=== PATIENT | male | born 1935 | race African-American/Black ===

== ENCOUNTER 2017-04-19 18:02 | Inpatient (IN) | payer MEDICARE ==
[~2017-04-19 18:02] MED LIST: ISOVUE-370 76%-LOCM 1 ML ONE
[2017-04-19] MEDS ORDERED: Acetaminophen 650 MG Suppository PR PRN (18:05)
[2017-04-19] MEDS ORDERED: Bisacodyl 5 MG TAB PO PRN (18:05)
[2017-04-19] MEDS ORDERED: Diltiazem 125 MG in Sodium Chloride 0.9% 100 ML IVPB SCH (18:30)
[2017-04-19] MEDS ORDERED: Dextrose 50% Abboject 50 ML SYRINGE SLOW IVP PRN (18:30)
[2017-04-19] MEDS ORDERED: Dextrose 5% in Water 1,000 ML IV PRN (18:30)
--- NOTE | 2017-04-19 19:22 | CT ---
CTA OF THE THORAX UTILIZING IV CONTRAST PE PROTOCOL AND 3D REFORMATTED IMAGING 04/19/17 INDICATION: History of flu and possible pneumonia and shortness of breath. COMPARISON: Prior chest radiograph dated 04/19/17 and 04/18/17. FINDINGS: No central or segmental pulmonary embolus is evident. There is scattered coronary artery ant thoracic aortic calcifications. The ascending aorta measures 3.8 cm. There are moderate sized bilateral pleur al effusions. There is scattered air space consolidation within the right upper lobe, right middle lo be, right lower lobe, lingula and left lower lobe. The visualized upper abdomen is unremarkable for a cute abnormality. There is a prominent amount of retained stool within the colon. Scattered degenerat sheila and osteoarthritic change. IMPRESSION: 1. No central or segmental pulmonary embolus. 2. Multifocal pneumonia. 3. Moderate bilateral pleural effusions. POS: [facility]
--- NOTE | 2017-04-19 19:33 | HP ---
PRIMARY CARE PHYSICIAN: Dr. Oren Stevens. CHIEF COMPLAINT: Worsening pneumonia. HISTORY OF PRESENT ILLNESS: Mr. Toscano is a pleasant 81-year-old gentleman, who was seen at [facility] on 04/19/2017, following transfer from [place]. He was admitted to [facility] on 04/13/2017 for influenza type B as well as pneumonia. While at [place], he underwent soft tissue CT scan of the neck on 04/17/2017, which did not show any e vidence of peritonsillar abscess. That CT scan showed right upper lobe and right lower lobe pneumoni a with parapneumonic effusion and possible chronic sinusitis of the left maxillary sinus. He also velasco d chest x-rays at [place], which showed worsening bilateral pneumonia. His antibiotics were switched to meropenem and vancomycin while he was at [place]. He also had severe hyponatremia, with a sodium of 117 on 04/13/2017. This improved to 133. Mr. Toscano himself is currently not answering any questions. History was obtained from discussion wi th the attending physician at [facility] as well as review of medical record. REVIEW OF SYSTEMS: Could not be completed. Mr. Toscano was also noted to have high heart rate during the day today. PAST MEDICAL HISTORY: Significant for dyslipidemia and diabetes mellitus type 2. PAST SURGICAL HISTORY: Significant for cataract surgery. SOCIAL HISTORY: No history of tobacco use, alcohol use or recreational drug use. ALLERGIES: No known drug allergies. CURRENT MEDICATIONS: These need to be clarified, but include meropenem and vancomycin. FAMILY HISTORY: No family history of premature coronary artery disease. CODE STATUS: I could not discuss Mr. Toscano's code status because he is unable to answer questions a ppropriately. I tried contacting his family, but I could not reach them. He is presumed FULL CODE. PHYSICAL EXAMINATION: GENERAL: Mr. Toscano is sleepy but arousable, not in acute distress. VITAL SIGNS: Blood pressure is 134/81, pulse is 170. He is breathing at rate of 28 and saturating 9 2% on 4 liters of oxygen. Temperature is 99 degrees Fahrenheit. EYES: No scleral icterus. No conjunctival pallor. ENT: Moist mucosal membranes, no oropharyngeal erythema or exudates. NECK: Supple, nontender, normal range of movement, trachea is midline. RESPIRATORY: Accessory muscles of breathing are mildly active. Chest wall movements are symmetric b ilaterally. LUNGS: Reveals few bilateral crackles. CARDIOVASCULAR: S1 and S2 are heard, tachycardic and regular. Peripheral pulses palpable. No carot id bruit, no pericardial rub. ABDOMEN: Soft, nontender, bowel sounds are heard, no hepatomegaly, no splenomegaly. NEUROLOGIC: Cranial nerves II-XII intact. Deep tendon reflexes are 2+. SKIN: No rashes or subcutaneous nodules. MUSCULOSKELETAL: Power is 5/5 in all 4 extremities. Normal range of movement at all major extremity joints. LYMPHATIC: No cervical lymphadenopathy. PSYCHIATRIC: Normal mood and normal affect, patient is oriented to person, unable to assess orientat ion to place or time. LABORATORY DATA: Mr. Toscano's labs and investigations were reviewed. I reviewed his electrocardiogr am, which shows atrial flutter with 2:1 AV conduction. I also reviewed his chest x-ray, which showed bilateral infiltrates. Laboratory investigations today showed decreased sodium of 133, normal potas sium 4.0, normal creatinine 0.78, white count of 7600, hemoglobin 10.9 and platelet count 231,000. Gildardo esqueda had a normal liver function test on 04/14/2017. ASSESSMENT AND PLAN: Mr. Toscano is a pleasant 81-year-old gentleman, who was seen at [facility] on 04/19/2017 following transfer from [facility]. His problem lis t includes: 1. Bilateral pneumonia: Mr. Toscano will be admitted to [facility] for furthe r management. We will continue him on meropenem and vancomycin for now. We will consult Pulmonology Service. I note that the soft tissue CT scan of the neck showed right upper and right lower lobe pn eumonia with parapneumonic effusion. 2. Atrial flutter: We will trial Cardizem. If successful in slowing the heart rate, we will start patient on Cardizem drip. Consult Cardiology in the morning for ongoing management. 3. Diabetes mellitus: I will start Accu-Cheks, insulin sliding scale. 4. Hyponatremia: Improved. 5. Dyslipidemia: Continue home medications once clarified. 6. Obtain CT angiogram of the chest to rule out pulmonary embolism, given increasing oxygen requirem ents as well as tachyarrhythmia. Many thanks for allowing me to participate in your patient's care. Please feel free to contact me wi th any questions or concerns. LEVEL OF RISK: High. LEVEL OF COMPLEXITY: High.
[2017-04-19] MEDS: Vancomycin HCl 1 GM in Premix Bag 1 BAG IVPB SCH (21:03)
[2017-04-19] MEDS ORDERED: Meropenem 1 GM in Sodium Chloride 0.9% 100 ML IVPB SCH (22:00)
[2017-04-19] MEDS: Meropenem 1 GM in Sterile Water 20 ML SLOW IVP SCH (22:58)
[2017-04-20 04:21] LABS: #Lymphocytes 0.6 thou/uL (1.20-3.40); #Monocytes 0.8 thou/uL (0.11-0.59); #Neutrophils 10.6 thou/uL (1.40-6.50); %Basophils 0.2 % (0.0-1.0); %Eosinophils 0.3 % (0.0-10.0); %Lymphocytes 4.8 % (21.0-51.0); %Monocytes 6.9 % (0.0-10.0); %Neutrophils 87.8 % (42.0-75.0); Hemoglobin 10.9 g/dL (14.0-18.0); Mean Corpuscular HGB CONC 33.3 g/dL (32.0-36.0); Mean Corpuscular Hemoglobin 30.2 pg (27.0-31.0); Mean Corpuscular Volume 90.9 fl (80.0-94.0); Mean Platelet Volume 6.3 fL (7.4-10.4); Platelet Count 309 thou/uL (130-400); RBC Distribution Width 12.6 % (11.5-14.5); White Blood Cell (WBC) Count 12.1 thou/uL (4.8-10.8)
[2017-04-20 04:54] LABS: Anion Gap 17 mmol/L (10-20); BUN (Urea Nitrogen) 22 mg/dL (8.4-25.7); Calc. Creatinine Clearance 74 mL/min (70-130); Calcium 8.6 mg/dL (7.8-10.44); Carbon Dioxide 16 mmol/L (23-31); Chloride 107 mmol/L (98-107); Estimated GFR-MDRD Greater than 90; Glucose 248 mg/dL (83-110); Sodium 136 mmol/L (136-145)
[2017-04-20] MEDS: Meropenem 1 GM in Sterile Water 20 ML SLOW IVP SCH ×3 (06:20→22:45)
[2017-04-20] MEDS: Vancomycin HCl 1 GM in Premix Bag 1 BAG IVPB SCH ×2 (08:21→21:17)
[2017-04-20] MEDS: Enoxaparin Sodium 40 MG/0.4 ML SYRINGE SC SCH (08:23)
[2017-04-20] MEDS ORDERED: Prevnar 13-Val Conj/PF 0.5 ML SYRINGE IM ONE (09:00)
[2017-04-20] MEDS ORDERED: FLU VACC TS2017-18 (>65YR) 0.5 ML SYRINGE IM ONE (09:00)
[2017-04-20] MEDS ORDERED: Midazolam HCl 2 mg/2 ml Vial ONE (10:47)
[2017-04-20] MEDS ORDERED: Propofol 1,000 MG/100 ML VIAL IV ONE (10:57)
[2017-04-20] MEDS ORDERED: Dextrose 5% in Water 1,000 ML IV PRN (11:11)
[2017-04-20] MEDS ORDERED: Sedation Protocol FS ONE (11:11)
[2017-04-20] MEDS ORDERED: CCU Electrolyte Replacement 1 EACH FS ONE (11:11)
[2017-04-20] MEDS ORDERED: Dextrose 50% Abboject 50 ML SYRINGE SLOW IVP PRN (11:11)
[2017-04-20] MEDS ORDERED: Sodium Chloride 0.9% 1,000 ML IV SCH ×2 (11:11→15:45)
[2017-04-20] MEDS ORDERED: Potassium Phosphate 9 MMOL in Sodium Chloride 0.9% 100 ML IVPB PRN (11:15)
[2017-04-20] MEDS ORDERED: Magnesium Oxide 400 MG TAB PO PRN (11:15)
[2017-04-20] MEDS ORDERED: Potassium Chloride 40 MEQ in Sodium Chloride 0.9% 250 ML 250 ML IVPB PRN (11:15)
[2017-04-20] MEDS ORDERED: CCU ELECTROLYTE REPLACEMENT PROTOCOL FS PRN (11:15)
[2017-04-20] MEDS ORDERED: Potassium Chloride 20 MEQ TAB PO PRN (11:15)
[2017-04-20] MEDS ORDERED: Potassium Phosphate 15 MMOL in Sodium Chloride 0.9% 250 ML 250 ML IV PRN (11:15)
[2017-04-20] MEDS ORDERED: Diltiazem 125 MG in Sodium Chloride 0.9% 100 ML IVPB SCH (11:15)
[2017-04-20] MEDS ORDERED: Potassium Chloride 40 MEQ in Premix Bag 1 BAG IVPB PRN (11:15)
[2017-04-20] MEDS ORDERED: Magnesium 2 GM/NS 0.9% 100 ML 2 GM in Premix Bag 1 BAG IVPB PRN (11:15)
[2017-04-20] MEDS ORDERED: Potassium Phosphate 12 MMOL in Sodium Chloride 0.9% 250 ML 250 ML IV PRN (11:15)
[2017-04-20] MEDS ORDERED: Lorazepam 2 MG/ML VIAL SLOW IVP PRN (11:16)
[2017-04-20] MEDS ORDERED: DISCONTINUE PREVIOUS NARCOTIC PAIN MEDICATIONS AND BENZODIAZEPINES FS SCH (11:16)
[2017-04-20] MEDS ORDERED: Fentanyl BOLUS 250 ML IVPB PRN (11:16)
[2017-04-20 11:48] LABS: Actual Bicarbonate (HCO3a) 17.7 mEq/L (22-26); Base Excess (BEa) -6.3 mEq/L (0 (+/-) 2.5); Calcium, Ionized 1.2 mmol/L (1.12-1.30); Hematocrit-ABG 31.4 % (42.0-52.0); Hemoglobin (Hb) 10.2 g/dL (14.0-18.0); O2 Tension (PaO2) 87.6 mmHg (80.0-100.0); pH, Arterial 7.39 (7.35-7.45)
[2017-04-20 11:50] LABS: Puncture Site RRA
[2017-04-20] MEDS: Sodium Chloride 0.9% 1,000 ML IV SCH ×2 (12:07→16:42)
--- NOTE | 2017-04-20 13:40 | OP ---
PROCEDURES PERFORMED: 1. Endotracheal intubation. 2. Fiberoptic bronchoscopy. PREOPERATIVE DIAGNOSIS: Respiratory failure with pneumonia. POSTOPERATIVE DIAGNOSIS: Respiratory failure with pneumonia. ANESTHESIA: Versed 2 mg IV. TECHNIQUE: The patient was brought to the ICU. This procedure was done on an emergent basis without consent. DESCRIPTION OF PROCEDURE: The patient was intubated on the first attempt with 8-0 endotracheal tube orally with a GlideScope used for visualization. The ET tube was then connected to ventilator. Usin g a Pentax bronchoscope, the bronchoscope was placed into the endotracheal tube. There were dense mu coid secretions present in both lungs as well as in the trachea. These were aspirated and sent for G ottoniel stain and culture. There were no other endobronchial lesions noted. The procedure was tolerated well.
--- NOTE | 2017-04-20 13:55 | CON ---
DATE OF CONSULTATION: 04/20/2017 PRIMARY PHYSICIAN: Dr. Stevens, he was asked to see him by the Hospitalist Service, Dr. Mancilla. INDICATIONS FOR CONSULTATION: We were asked to see him due to atrial fibrillation/flutter. HISTORY OF PRESENT ILLNESS: This is a very unfortunate 81-year-old gentleman, was diagnosed recently with influenza B and pneumonia. He was decompensated, was then transferred to our facility for furt her care. On arrival here, he was noted to have both right upper and lower lobe pneumonia. He has h ad a peripneumonic effusion. Over the last 24 hours, he has decompensated further requiring intubati on this morning. He is now in the Intensive Care Unit intubated and also continues to have atrial fi brillation/flutter, heart rates in the 110s to 120s, did not have any previous cardiac history that w ould indicate fibrillation or flutter in the past. At this time, we will start him on a diltiazem dr ip to control the rate, but it is atrial flutter with a variable block that appears to be approximate ly 3:1 block. PAST MEDICAL HISTORY: Significant for hypertension, diabetes, degenerative joint disease, benign pro static hypertrophy, cataract surgery, hypercholesterolemia. SOCIAL HISTORY: He has no alcohol or tobacco abuse. FAMILY HISTORY: Noncontributory. MEDICATIONS: Include IV diltiazem, Lovenox, and vancomycin. At home he has been taking metformin, l ovastatin, Zestril and aspirin. ALLERGIES: None. REVIEW OF SYSTEMS: Not obtainable. The patient is intubated and slightly sedated. PHYSICAL EXAMINATION: GENERAL: Reveals an elderly gentleman. VITAL SIGNS: Blood pressure at this time is 156/89, heart rate is 117, which shows atrial flutter on the monitor. His respiratory rate is about 30. He is on the ventilator at this time that seems to be overlying the ventilator and O2 saturations are now 92%. He is afebrile. HEENT: Shows head to be normocephalic, atraumatic. There is some elevation of JVD at this time, but the patient is lying flat in the bed. He did not hear any other distention. There is no thyroid en largement from what I can palpate. CHEST: Shows decreased breath sounds. He recently had bronchoscopy apparently this morning. I did not hear any significant rales, rhonchi or wheezing at this time. CARDIOVASCULAR: Somewhat irregular, but at times it appears to be more regular, but sounds slightly tachycardic. I did not hear any significant murmurs, heaves, thrills, bruits or rubs. ABDOMEN: Soft and nontender. Positive bowel sounds are present, but somewhat decreased. EXTREMITIES: Showed no clubbing, cyanosis or edema. Pedal pulses are present. NEUROLOGIC: The patient is somewhat sedated on the ventilator. EKG is showing atrial flutter with variable block, but mainly appears to be 3:1 block. IMPRESSION: 1. Atrial flutter. We will slow the heart rate down by using IV diltiazem as long as the blood pres sure tolerates, may switch to beta blockers later if necessary. We will continue his other medicatio ns. As far as Lovenox is concerned, this will be continued. 2. Pneumonia. This will be dealt with by the electric truck driver who has already seen the patient and who performed bronchoscopy and will continue the antibiotics. 3. History of diabetes. He is on a sliding scale. We will continue that medication. 4. History of hypertension. This is under reasonable control at this time. 5. History of anemia. His hemoglobin was 10.9. This will be followed carefully while he is in the hospital. There is no overt evidence of bleeding. We will continue the Lovenox for the atrial flutt er. Once he becomes more stable, he may need to undergo further evaluation with ablation of the atri al flutter as this is the most beneficial modality to treat atrial flutter that we have available, it is difficult to control with medical management at times. Should he become very tachycardic with at rial flutter, we will consider electrical cardioversion.
--- NOTE | 2017-04-20 14:24 | PDOC.PN ---
- Subjective Encounter Start Date: 04/20/17 Encounter Start Time: 14:23 -: non-verbal Pt seen for followup re; acute respiratory failure. Pt is intubated, unable to provide history or ROS. - Objective MAR Reviewed: Yes Vital Signs & Weight: Vital Signs (12 hours) Temp Pulse Resp BP BP Pulse Ox 04/20/17 14:17 93 91/53 L 04/20/17 10:55 93 156/89 H 04/20/17 08:19 98.9 F 98 18 137/79 93 L 04/20/17 07:36 98.6 F 106 H 22 H 94 L 04/20/17 04:00 98.6 F 106 H 22 H 146/47 H 96 Weight Weight 165 lb 11.2 oz I&O: 04/19/17 04/20/17 04/21/17 06:59 06:59 06:59 Intake Total 300 Balance 300 Result Diagrams: 04/20/17 04:00 04/20/17 04:00 Additional Labs: Accuchecks 04/20/17 04/19/17 04:59 20:37 POC Glucose 234 H 221 H EKG Reviewed by me: Yes (Tele: az wood) Phys Exam - Physical Examination Intubated HEENT: sclera anicteric ETT+ Neck: no nodes Levi crackles Cardiovascular: irregular Gastrointestinal: soft, positive bowel sounds Neurological: moves all 4 limbs Skin: no rash Dx/Plan (1) Acute respiratory failure Code(s): J96.00 - ACUTE RESPIRATORY FAILURE, UNSP W HYPOXIA OR HYPERCAPNIA Status: Acute (2) Pneumonia Code(s): J18.9 - PNEUMONIA, UNSPECIFIED ORGANISM Status: Acute (3) Influenza B Code(s): J10.1 - FLU DUE TO OTH IDENT INFLUENZA VIRUS W OTH RESP MANIFEST Status: Acute (4) Atrial flutter Code(s): I48.92 - UNSPECIFIED ATRIAL FLUTTER Status: Acute (5) Hypertension Code(s): I10 - ESSENTIAL (PRIMARY) HYPERTENSION Status: Chronic (6) BPH (benign prostatic hyperplasia) Code(s): N40.0 - BENIGN PROSTATIC HYPERPLASIA WITHOUT LOWER URINRY TRACT SYMP Status: Chronic (7) Diabetes mellitus type 2 in nonobese Code(s): E11.9 - TYPE 2 DIABETES MELLITUS WITHOUT COMPLICATIONS Status: Chronic (8) Hyponatremia Code(s): E87.1 - HYPO-OSMOLALITY AND HYPONATREMIA Status: Resolved - Plan continue antibiotics, DVT proph w/lovenox * . Continue IV meropenem, vancomycin. Appreciate PCCM and cardiology services input. Continue cardizem drip. Hyponatremia resolved. Continue accuchecks, insulin sliding scale. Monitor vital signs, titrate antihypertensives as needed. Pt on propofol drip. Review of Systems - Medications/Allergies Allergies/Adverse Reactions: Allergies Allergy/AdvReac Type Severity Reaction Status Date / Time No Known Allergies Allergy Verified 12/04/16 00:34 Medications: Current Medications Acetaminophen (Tylenol) 650 mg PO Q4H PRN PRN Reason: Headache/Fever or Pain Acetaminophen (Tylenol) 650 mg KS Q4H PRN PRN Reason: Headache/Fever or Pain Albuterol/Ipratropium (Duoneb) 3 ml NEB [id number] LEORA Last Admin: 04/20/17 14:17 Dose: 3 ml Bisacodyl (Dulcolax) 10 mg PO DAILYPRN PRN PRN Reason: Constipation Dextrose/Water (Dextrose 50%) 25 gm SLOW IVP PRN PRN PRN Reason: Hypoglycemia Enoxaparin Sodium (Lovenox) 40 mg SC 0900 [facility] Last Admin: 04/20/17 08:23 Dose: 40 mg Famotidine (Pepcid) 20 mg SLOW IVP BID LEORA Glucagon (Glucagon) 1 mg IM PRN PRN PRN Reason: Hypoglycemia Vancomycin HCl 1 gm/ Device 200 mls @ 200 mls/hr IVPB Q12HR [facility] Last Admin: 04/20/17 08:21 Dose: 200 mls Meropenem 1 gm/ Sterile Water 20 mls @ 240 mls/hr SLOW IVP Q8HR LEORA Last Admin: 04/20/17 14:18 Dose: 20 mls Diltiazem HCl 125 mg/ Sodium (Chloride) 125 mls @ 0 mls/hr IVPB INF LEORA; Titrate PRN Reason: Protocol Levofloxacin 750 mg/ Device 150 mls @ 100 mls/hr IVPB 1200 [facility] Last Admin: 04/20/17 12:16 Dose: 150 mls Sodium Chloride (Normal Saline 0.9%) 1,000 mls @ 100 mls/hr IV .Q10H LEORA Last Admin: 04/20/17 12:07 Dose: 1,000 mls Dextrose/Water (D5w) 1,000 mls @ 0 mls/hr IV .Q0M PRN; As Directed PRN Reason: Hypoglycemia Potassium Chloride 40 meq/ (Sodium Chloride) 270 mls @ 135 mls/hr IVPB ASDIR PRN PRN Reason: FOR SERUM K+ 2.5 - 3.5 Potassium Chloride 40 meq/ (Device) 100 mls @ 50 mls/hr IVPB ASDIR PRN PRN Reason: FOR SERUM K+ 2.5 - 3.5 Magnesium Sulfate 1 gm/ Sodium (Chloride) 102 mls @ 102 mls/hr IV PRN PRN PRN Reason: MAG LEVEL 1.4 - 2.0 Magnesium Sulfate 2 gm/ Device 100 mls @ 100 mls/hr IVPB ASDIR PRN PRN Reason: MAGNESIUM < 1.4 Potassium Phosphate 9 mmol/ (Sodium Chloride) 103 mls @ 25.75 mls/hr IVPB ASDIR PRN PRN Reason: Phosphate 1.0-1.8 Potassium Phosphate 12 mmol/ (Sodium Chloride) 254 mls @ 63.5 mls/hr IV ASDIR PRN PRN Reason: Serum phosphate 0.5-0.9 Potassium Phosphate 15 mmol/ (Sodium Chloride) 255 mls @ 63.75 mls/hr IV ASDIR PRN PRN Reason: Serum Phos < 0.5 Fentanyl Citrate 2,000 mcg/ (Sodium Chloride) 100 mls @ 0 mls/hr IV INF LEORA; Per Protocol PRN Reason: Protocol Stop: 05/20/17 11:16 Fentanyl Citrate (Fentanyl Bolus) 250 mls @ 0 mls/hr IVPB PRN PRN; As Directed PRN Reason: Breakthrough pain Stop: 05/20/17 11:16 Insulin Human Lispro (Humalog) 0 units SC .MILD SLIDING SCALE PRN PRN Reason: Mild Correctional Scale Lorazepam (Ativan) 2 mg SLOW IVP Q2H PRN PRN Reason: Anxiety to achieve [place] 2-3 Stop: 05/20/17 11:16 Magnesium Oxide (Magnesium Oxide) 400 mg PO BIDPRN PRN PRN Reason: FOR SERUM MAG 1.4 - 2.0 Magnesium Oxide (Magnesium Oxide) 800 mg PO PRN PRN PRN Reason: FOR SERUM MAG < 1.4 Methylprednisolone Sodium Succinate (Solu-Medrol) 20 mg IVP Q6HR [facility] Last Admin: 04/20/17 12:15 Dose: 20 mg Miscellaneous Medication (Phos-Nak) 1 pkt PO TIDPRN PRN PRN Reason: FOR PHOS LEVEL 1.0 - 1.8 Miscellaneous Medication (Phos-Nak) 2 pkt PO TIDPRN PRN PRN Reason: FOR PHOS LEVEL 0.5 - 1.0 Morphine Sulfate (Morphine) 2 mg IVP Q2H PRN PRN Reason: Breakthrough pain Stop: 05/20/17 11:16 Ccu Electrolyte (Replacement Protocol) 0 each FS PRN PRN PRN Reason: FOR ELECTROLYTE REPLACEMENT Discontinue Previous Narcotic Pain Medications And Benzodiazepines 1 each FS .ONE [facility] Stop: 05/20/17 11:16 Potassium Chloride (K-Dur) 40 meq PO ASDIR PRN PRN Reason: FOR SERUM K+ 2.5 - 3.5 Potassium Chloride (Klor-Con) 40 meq PER TUBE ASDIR PRN PRN Reason: FOR SERUM K+ 2.5-3.5 Propofol (Diprivan) 1,000 mg IV INF PRN; Protocol PRN Reason: TO ACHIEVE [place] SCORE 2-3 Stop: 05/20/17 11:16 Sodium Chloride (Flush - Normal Saline) 10 ml IVF Q12HR [facility] Last Admin: 04/20/17 08:23 Dose: 10 ml Sodium Chloride (Flush - Normal Saline) 10 ml IVF PRN PRN PRN Reason: Saline Flush
--- NOTE | 2017-04-20 15:52 | CON ---
DATE OF CONSULTATION: 04/20/2017 CONSULTING PHYSICIAN: Jameist . REASON FOR CONSULTATION: Pneumonia. HISTORY OF PRESENT ILLNESS: The patient is an 81-year-old male who presented to the emergency room yesterday in transfer from an outside facility with influenza type B and pneumonia. He was encephalopathic. When I saw him in the room, he was unable to give me anything in the way of history. I am not sure about the duration of symptoms or any aggravating or alleviating factors. REVIEW OF SYSTEMS: Cannot be obtained, because of the patient's altered mental status. PAST MEDICAL HISTORY: Hyperlipidemia, diabetes mellitus type 2. PAST SURGICAL HISTORY: Cataract surgery. SOCIAL HISTORY: Nonsmoker, does not consume alcohol. ALLERGIES: None. MEDICATIONS PRIOR TO ADMISSION: Currently not known. FAMILY MEDICAL HISTORY: Unable to obtain secondary to the patient's altered mental status. PHYSICAL EXAMINATION: VITAL SIGNS: Heart rate 114, atrial fibrillation, blood pressure 156/89, O2 sat in the low 80s, respiratory rate 34. GENERAL: When I entered the room, this patient was in profound respiratory distress. He cannot speak any words. HEENT: Sclerae are anicteric. Oropharynx dry. NECK: No JVD. LUNGS: Coarse rhonchi bilaterally. CARDIOVASCULAR: S1, S2 regular. ABDOMEN: Soft, nontender, nondistended. No hepatosplenomegaly. EXTREMITIES: No clubbing, cyanosis, or edema. SKIN: No rashes, no bruising, no jaundice. No palpable lymphadenopathy. NEUROLOGIC: He does move all 4 extremities. LABORATORY DATA AND IMAGING: White blood cell count 12.1, hematocrit 32.8, platelet count 309. Sodium 136, potassium 4, chloride 107, CO2 16, BUN 22, creatinine 0.8, glucose 234. CT of the chest was reviewed personally by myself and shows bilateral infiltrates and small effusions. ABG is pending. ASSESSMENT: 1. Acute respiratory failure secondary to pneumonia. 2. Atrial fibrillation with rapid ventricular response. 3. Influenza. 4. Diabetes mellitus. PLAN: 1. I have taken down to the ICU immediately after first identified he was in crisis. I have intubated him with 8.0 endotracheal tube orally on the first attempt. He subsequently underwent a bronchoalveolar lavage - see separate operative notes. 2. He will be placed on broad spectrum IV antibiotics including meropenem, vancomycin, and Levaquin. 3. Cardizem for control of atrial fibrillation. 4. IV fluids. 5. Steroids. 6. Nebulization therapy. 7. Family was not immediately identified; therefore cannot communicate with them rest of the patient's critical status. 45 minutes cc time was spent on this patient MTDD
[2017-04-20] MEDS: fentaNYL Citrate/PF 2,000 MCG in Sodium Chloride 0.9% 60 ML IV SCH (16:36)
[2017-04-20] MEDS: Digoxin 0.5 MG/2 ML AMP SLOW IVP SCH ×2 (17:23→23:14)
[2017-04-20] MEDS: HumaLOG 300 UNITS/3 ML VIAL SC PRN ×2 (17:32→21:18)
[2017-04-20] MEDS: Famotidine/PF 20 mg/2ml Vial SLOW IVP SCH (21:16)
[2017-04-21] MEDS: Sodium Chloride 0.9% 1,000 ML IV SCH (02:55)
[2017-04-21] MEDS: HumaLOG 300 UNITS/3 ML VIAL SC PRN ×4 (04:00→22:13)
[2017-04-21 04:44] LABS: ALT (SGPT) 9 U/L (8-55); AST (SGOT) 14 U/L (5-34); Albumin 2.3 g/dL (3.4-4.8); Alkaline Phosphatase 54 U/L (40-150); Anion Gap 14 mmol/L (10-20); BUN (Urea Nitrogen) 31 mg/dL (8.4-25.7); Bilirubin, Total 0.3 mg/dL (0.2-1.2); Calc. Creatinine Clearance 68 mL/min (70-130); Calcium 8.4 mg/dL (7.8-10.44); Carbon Dioxide 18 mmol/L (23-31); Chloride 112 mmol/L (98-107); Estimated GFR-MDRD Greater than 90; Globulin 3.3 g/dL (2.4-3.5); Glucose 288 mg/dL (83-110); Potassium 4.2 mmol/L (3.5-5.1); Protein, Total 5.6 g/dL (5.8-8.1); Sodium 140 mmol/L (136-145)
[2017-04-21 04:52] LABS: Band 11 % (5-11); Hemoglobin 9.9 g/dL (14.0-18.0); Lymphocytes 4 % (21-51); MDiff Complete? YES; Mean Corpuscular Hemoglobin 29.6 pg (27.0-31.0); Mean Corpuscular Volume 92.5 fl (80.0-94.0); Mean Platelet Volume 6.5 fL (7.4-10.4); Metamyelocyte 1 % (0-0); Monocytes 2 % (0-10); Myelocyte 1 % (0-0); Neutrophil 81 % (42-75); PLT Morphology Comment Appears Adequate; Platelet Count 285 thou/uL (130-400); RBC Distribution Width 12.7 % (11.5-14.5); Red Blood Cell (RBC) Count 3.35 mill/uL (4.70-6.10); White Blood Cell (WBC) Count 12.3 thou/uL (4.8-10.8)
[2017-04-21] MEDS: Digoxin 0.5 MG/2 ML AMP SLOW IVP SCH (05:45)
[2017-04-21 06:36] LABS: Actual Bicarbonate (HCO3a) 19.5 mEq/L (22-26); Base Excess (BEa) -5.2 mEq/L (0 (+/-) 2.5); CO2 Tension 34.9 mmHg (35.0-45.0); Calcium, Ionized 1.2 mmol/L (1.12-1.30); Hematocrit-ABG 28.1 % (42.0-52.0); Hemoglobin (Hb) 8.8 g/dL (14.0-18.0); O2 Tension (PaO2) 79.4 mmHg (80.0-100.0); pH, Arterial 7.37 (7.35-7.45)
[2017-04-21 06:37] LABS: ALV-art Gradient 312.575 (0-20); Puncture Site RRA
[2017-04-21] MEDS: Meropenem 1 GM in Sterile Water 20 ML SLOW IVP SCH ×3 (06:46→21:45)
[2017-04-21] MEDS: Vancomycin HCl 1 GM in Premix Bag 1 BAG IVPB SCH ×2 (09:41→21:50)
[2017-04-21] MEDS: Enoxaparin Sodium 40 MG/0.4 ML SYRINGE SC SCH (09:41)
[2017-04-21] MEDS: Famotidine/PF 20 mg/2ml Vial SLOW IVP SCH ×2 (09:42→21:32)
[2017-04-21] MEDS ORDERED: Sodium Chloride 0.9% 1,000 ML IV SCH (11:52)
--- NOTE | 2017-04-21 13:07 | PDOC.CTH ---
<Charlene Ford - Last Filed: 04/21/17 13:05> Cardiology Progress Note - Subjective The pt seen and examined. No overnight events. No cardiac complaints. His HR is well controlled without Cardizem drip. He received Digx3. He still remains intubated with vent sedation. - Objective Vital Signs Temp Pulse Resp BP Pulse Ox 04/21/17 10:58 84 156/63 H 04/21/17 10:00 20 04/21/17 08:04 84 132/65 04/21/17 08:00 98.0 F 84 20 97 04/21/17 07:00 98.0 F 04/21/17 06:00 20 04/21/17 05:45 85 04/21/17 04:00 98.8 F 34 H 04/21/17 03:20 85 18 97 04/21/17 02:00 27 H Admit Weight 169 lb Weight 169 lb 5.04 oz 04/20/17 04/21/17 04/22/17 06:59 06:59 06:59 Intake Total 300 3702.4 Output Total 920 88 Balance 300 2782.4 -88 - Physical Examination Neck: no JVD present Lungs: other: (diminished at bases) Heart: other: (irregular) Abdomen: soft Extremities: other: (2+ pitting BLE edemas) - Telemetry Telemetry Rhythm: Aflutter - Labs Result Diagrams: 04/21/17 03:49 04/21/17 03:49 - Assessment/Plan 1. A Fluter - HR is well controlled with current medication; Start Coreg 6.25mg BID and Digoxin PO 0.125mg daily; on Lovenox; cont. monitor on tele; possible Afub ablation when his condition is stable 2. Resp. failure 2ndary to Influenza B and PNA - on IV antibiotics; managed by aeroplane pilot/PCP 3. HTN - stable with current medication 4. DM type 2 - on SS insulin; managed by PCP MAR reviewed Review of Systems - Review of Systems Constitutional: reports: see HPI EENTM: reports: see HPI Respiratory: reports: see HPI Cardiac (ROS): reports: see HPI ABD/GI: reports: see HPI : reports: see HPI Musculoskeletal: reports: see HPI <Jacklyn Urrutia - Last Filed: 04/21/17 20:04> Cardiology Progress Note - Objective Vital Signs Temp Pulse Resp BP Pulse Ox 04/21/17 18:54 144/67 H 04/21/17 18:53 101 H 144/67 H 93 L 04/21/17 18:00 11 L 04/21/17 17:01 99 04/21/17 16:00 99.2 F 22 H 04/21/17 14:34 91 146/57 H 04/21/17 14:00 17 04/21/17 12:00 98.3 F 17 04/21/17 10:58 84 156/63 H 04/21/17 10:00 20 04/21/17 08:04 84 132/65 Admit Weight 169 lb Weight 169 lb 5.04 oz 04/20/17 04/21/17 04/22/17 06:59 06:59 06:59 Intake Total 300 3702.4 1327 Output Total 920 503 Balance 300 2782.4 824 - Labs Result Diagrams: 04/21/17 03:49 04/21/17 03:49 - Assessment/Plan Pt. was seen and eval. by me. I agree with the A/P by the FRICTION WELDING MACHINE OPERATOR. He has had less sedation today and is more alert. Chest clear anteriorly.
--- NOTE | 2017-04-21 14:01 | PRG ---
DATE OF SERVICE: 04/21/2017 SERVICE: Pulmonary Medicine. INTERVAL HISTORY: The patient is doing okay from a respiratory standpoint. His oxygen requirements have improved overnight. Hemodynamically, he is demonstrated some stability. He appeared to be regu lar, but I cannot quite tell if it is atrial flutter versus sinus rhythm. Either way, he cannot prov jami me with additional elements of the history because he is currently sedated. No overnight events were otherwise identified. PHYSICAL EXAMINATION: VITAL SIGNS: Afebrile currently with a T-max overnight of 101. Pulse 84, blood pressure 156/63, res pirations 15, saturation 95% on 47% FiO2. GENERAL: Patient is intubated and sedated. With gentle stimulation, he will open his eyes up and at tend. HEENT: Normocephalic, atraumatic. Sclerae are white, conjunctivae pink. Oral and mucosa is moist w ithout lesions. LUNGS: Bilateral rhonchi are present. Dependent crackles are also evident. No prolonged expiratory phase or wheezing is present. HEART: Normal rate. Regular for now. ABDOMEN: Soft, nontender, nondistended. Bowel sounds are positive. MUSCULOSKELETAL: No cyanosis or clubbing. There is no pitting in the bilateral lower extremities. NEUROLOGIC: Grossly nonfocal. LABORATORY DATA: WBC 12.3, hemoglobin 9.9, platelets 285,000. A pH 7.37, pCO2 35, pO2 79.4. This w as on 20. At that time, he was riding the ventilator. Chloride 112, sodium 140. Basic metabolic pr ofile is otherwise unremarkable. Creatinine is gently up trending to 0.91. Liver function studies a re unremarkable. Blood sugar ranges from 225-304. Blood cultures x2 and respiratory culture are neg ative to date. IMAGING: Chest x-ray demonstrates endotracheal tube in good position. There is diffuse infiltrates throughout the right lung including the right upper lobe, right middle lobe, and right lower lobe. T here is also patchy infiltrates in the left lung. Layering bilateral pleural effusions are also pres ent. ASSESSMENT: 1. Acute hypoxic respiratory failure. 2. Healthcare-associated pneumonia. 3. Influenza A. 4. Atrial fibrillation with rapid ventricular response. 5. Type 2 diabetes mellitus. PLAN: Multiple ventilator adjustments have been made in order to turn over more work of breathing an d continue our weaning process of oxygen. It will likely be another 24-48 hours before extubation ca n be considered because of his high oxygen requirements. As such, tube feeds will be initiated and w e will KVO his IV fluids. Supportive care will otherwise be continued. Pulmonary Critical Care will continue to follow. CRITICAL CARE TIME: 30 minutes.
--- NOTE | 2017-04-21 14:07 | RAD ---
RADIOGRAPH CHEST 1 VIEW: Date: 04/21/17. Time: 4:41 a.m. HISTORY: An 81-year-old male with respiratory failure with labored breathing. COMPARISON: . FINDINGS: Bilateral moderate-sized pleural effusions, right greater than left. Extensive airspace densities th roughout almost the entire right lung, throughout the central portion of the left upper lobe, and thr oughout most of the left lower lobe. Dense consolidation of retrocardiac portion of left lower lobe. Hyperlucency of the periphery of the left upper and mid lung zones appears to be more prominent now than previously. This apparent difference could be technical or real. New endotracheal tube distal tip overlies the mid thoracic trachea. New NG tube distal tip inferior to the diaphragm, outside of field of view. No cardiomegaly. There are multiple EKG leads overlying the left mid and upper ches t. IMPRESSION: 1. No significant interval change in the severe bilateral airspace densities, right more extensive t roche left. 2. Interval intubation and nasogastric tube placement. 3. Hyperlucency of the peripheral aspects of the left lung. This is favored to be technical rather than representing a pneumothorax, but a repeat chest radiograph with all of the overlying EKG leads o ff of the patient is recommended for better visualization. ARDEN [] POS: ALAN
--- NOTE | 2017-04-21 15:23 | PDOC.PN ---
- Subjective Encounter Start Date: 04/21/17 Encounter Start Time: 10:00 Pt seen for followup re: pneumonia. Intubated, unable to complete ROS. - Objective MAR Reviewed: Yes Vital Signs & Weight: Vital Signs (12 hours) Temp Pulse Resp BP Pulse Ox 04/21/17 14:34 91 146/57 H 04/21/17 14:00 17 04/21/17 12:00 98.3 F 17 04/21/17 10:58 84 156/63 H 04/21/17 10:00 20 04/21/17 08:04 84 132/65 04/21/17 08:00 98.0 F 84 20 97 04/21/17 07:00 98.0 F 04/21/17 06:00 20 04/21/17 05:45 85 04/21/17 04:00 98.8 F 34 H Weight Admit Weight 169 lb Weight 169 lb 5.04 oz Most Recent Monitor Data Heart Rate from ECG 104 NIBP 137/53 NIBP BP-Mean 107 Respiration from ECG 10 SpO2 93 I&O: 04/20/17 04/21/17 04/22/17 06:59 06:59 06:59 Intake Total 300 3702.4 Output Total 920 313 Balance 300 2782.4 -313 Result Diagrams: 04/21/17 03:49 04/21/17 03:49 Additional Labs: Accuchecks 04/21/17 04/21/17 04/20/17 10:52 03:49 21:06 POC Glucose 304 H 261 H 225 H 04/20/17 17:30 POC Glucose 254 H EKG Reviewed by me: Yes (Tele: NSR vs a. flutter) Phys Exam - Physical Examination Intubated HEENT: moist MMs ETT Neck: supple Respiratory: clear to auscultation bilateral Cardiovascular: RRR Gastrointestinal: soft Neurological: moves all 4 limbs Skin: no rash Dx/Plan (1) Pneumonia Code(s): J18.9 - PNEUMONIA, UNSPECIFIED ORGANISM Status: Acute (2) Acute respiratory failure Code(s): J96.00 - ACUTE RESPIRATORY FAILURE, UNSP W HYPOXIA OR HYPERCAPNIA Status: Acute (3) Influenza B Code(s): J10.1 - FLU DUE TO OTH IDENT INFLUENZA VIRUS W OTH RESP MANIFEST Status: Acute (4) Atrial flutter Code(s): I48.92 - UNSPECIFIED ATRIAL FLUTTER Status: Acute (5) Hypertension Code(s): I10 - ESSENTIAL (PRIMARY) HYPERTENSION Status: Chronic (6) BPH (benign prostatic hyperplasia) Code(s): N40.0 - BENIGN PROSTATIC HYPERPLASIA WITHOUT LOWER URINRY TRACT SYMP Status: Chronic (7) Diabetes mellitus type 2 in nonobese Code(s): E11.9 - TYPE 2 DIABETES MELLITUS WITHOUT COMPLICATIONS Status: Chronic - Plan plan discussed w/ family, continue antibiotics * . Continue IV antibiotics as below. Continue Tamiflu. PCCM, cardiology following. Updated family. Review of Systems - Medications/Allergies Allergies/Adverse Reactions: Allergies Allergy/AdvReac Type Severity Reaction Status Date / Time No Known Allergies Allergy Verified 12/04/16 00:34 Medications: Current Medications Acetaminophen (Tylenol) 650 mg PO Q4H PRN PRN Reason: Headache/Fever or Pain Acetaminophen (Tylenol) 650 mg LA Q4H PRN PRN Reason: Headache/Fever or Pain Last Admin: 04/20/17 17:32 Dose: 650 mg Albuterol/Ipratropium (Duoneb) 3 ml NEB [id number] [facility] Last Admin: 04/21/17 14:34 Dose: 3 ml Bisacodyl (Dulcolax) 10 mg PO DAILYPRN PRN PRN Reason: Constipation Carvedilol (Coreg) 6.25 mg PO BID-[facility] Dextrose/Water (Dextrose 50%) 25 gm SLOW IVP PRN PRN PRN Reason: Hypoglycemia Digoxin (Lanoxin) 0.125 mg PO DAILY [facility] Enoxaparin Sodium (Lovenox) 40 mg SC 0900 [facility] Last Admin: 04/21/17 09:41 Dose: 40 mg Famotidine (Pepcid) 20 mg SLOW IVP BID [facility] Last Admin: 04/21/17 09:42 Dose: 20 mg Glucagon (Glucagon) 1 mg IM PRN PRN PRN Reason: Hypoglycemia Vancomycin HCl 1 gm/ Device 200 mls @ 200 mls/hr IVPB Q12HR [facility] Last Admin: 04/21/17 09:41 Dose: 200 mls Meropenem 1 gm/ Sterile Water 20 mls @ 240 mls/hr SLOW IVP Q8HR [facility] Last Admin: 04/21/17 15:04 Dose: 20 mls Diltiazem HCl 125 mg/ Sodium (Chloride) 125 mls @ 0 mls/hr IVPB INF [facility]; Titrate PRN Reason: Protocol Levofloxacin 750 mg/ Device 150 mls @ 100 mls/hr IVPB 1200 [facility] Last Admin: 04/21/17 11:47 Dose: 150 mls Dextrose/Water (D5w) 1,000 mls @ 0 mls/hr IV .Q0M PRN; As Directed PRN Reason: Hypoglycemia Potassium Chloride 40 meq/ (Sodium Chloride) 270 mls @ 135 mls/hr IVPB ASDIR PRN PRN Reason: FOR SERUM K+ 2.5 - 3.5 Potassium Chloride 40 meq/ (Device) 100 mls @ 50 mls/hr IVPB ASDIR PRN PRN Reason: FOR SERUM K+ 2.5 - 3.5 Magnesium Sulfate 1 gm/ Sodium (Chloride) 102 mls @ 102 mls/hr IV PRN PRN PRN Reason: MAG LEVEL 1.4 - 2.0 Magnesium Sulfate 2 gm/ Device 100 mls @ 100 mls/hr IVPB ASDIR PRN PRN Reason: MAGNESIUM < 1.4 Potassium Phosphate 9 mmol/ (Sodium Chloride) 103 mls @ 25.75 mls/hr IVPB ASDIR PRN PRN Reason: Phosphate 1.0-1.8 Potassium Phosphate 12 mmol/ (Sodium Chloride) 254 mls @ 63.5 mls/hr IV ASDIR PRN PRN Reason: Serum phosphate 0.5-0.9 Potassium Phosphate 15 mmol/ (Sodium Chloride) 255 mls @ 63.75 mls/hr IV ASDIR PRN PRN Reason: Serum Phos < 0.5 Fentanyl Citrate 2,000 mcg/ (Sodium Chloride) 100 mls @ 0 mls/hr IV INF [facility]; Per Protocol PRN Reason: Protocol Stop: 05/20/17 11:16 Last Admin: 04/20/17 16:36 Dose: 100 mls Fentanyl Citrate (Fentanyl Bolus) 250 mls @ 0 mls/hr IVPB PRN PRN; As Directed PRN Reason: Breakthrough pain Stop: 05/20/17 11:16 Sodium Chloride (Normal Saline 0.9%) 1,000 mls @ 0 mls/hr IV .Q0M [facility] PRN Reason: KVO Insulin Human Lispro (Humalog) 0 units SC .MILD SLIDING SCALE PRN PRN Reason: Mild Correctional Scale Last Admin: 04/21/17 10:54 Dose: 5 unit Magnesium Oxide (Magnesium Oxide) 400 mg PO BIDPRN PRN PRN Reason: FOR SERUM MAG 1.4 - 2.0 Magnesium Oxide (Magnesium Oxide) 800 mg PO PRN PRN PRN Reason: FOR SERUM MAG < 1.4 Methylprednisolone Sodium Succinate (Solu-Medrol) 40 mg IVP DAILY [facility] Miscellaneous Medication (Phos-Nak) 1 pkt PO TIDPRN PRN PRN Reason: FOR PHOS LEVEL 1.0 - 1.8 Miscellaneous Medication (Phos-Nak) 2 pkt PO TIDPRN PRN PRN Reason: FOR PHOS LEVEL 0.5 - 1.0 Ccu Electrolyte (Replacement Protocol) 0 each FS PRN PRN PRN Reason: FOR ELECTROLYTE REPLACEMENT Discontinue Previous Narcotic Pain Medications And Benzodiazepines 1 each FS .ONE [facility] Stop: 05/20/17 11:16 Potassium Chloride (K-Dur) 40 meq PO ASDIR PRN PRN Reason: FOR SERUM K+ 2.5 - 3.5 Potassium Chloride (Klor-Con) 40 meq PER TUBE ASDIR PRN PRN Reason: FOR SERUM K+ 2.5-3.5 Propofol (Diprivan) 1,000 mg IV INF PRN; Protocol PRN Reason: TO ACHIEVE [place] SCORE 2-3 Stop: 05/20/17 11:16 Sodium Chloride (Flush - Normal Saline) 10 ml IVF Q12HR [facility] Last Admin: 04/21/17 09:41 Dose: 10 ml Sodium Chloride (Flush - Normal Saline) 10 ml IVF PRN PRN PRN Reason: Saline Flush
[2017-04-21] MEDS: Propofol 1,000 MG/100 ML VIAL IV PRN (15:59)
[2017-04-21] MEDS ORDERED: Diltiazem 125 MG in Sodium Chloride 0.9% 100 ML IVPB SCH (16:00)
[2017-04-21] MEDS: fentaNYL Citrate/PF 2,000 MCG in Sodium Chloride 0.9% 60 ML IV SCH (17:00)
[2017-04-21] MEDS: Carvedilol 6.25 MG TAB PO SCH (18:54)
[2017-04-22] MEDS: Propofol 1,000 MG/100 ML VIAL IV PRN (03:18)
[2017-04-22] MEDS: HumaLOG 300 UNITS/3 ML VIAL SC PRN ×4 (03:29→22:33)
[2017-04-22 04:53] LABS: Anion Gap 10 mmol/L (10-20); BUN (Urea Nitrogen) 40 mg/dL (8.4-25.7); Calc. Creatinine Clearance 65 mL/min (70-130); Calcium 8.5 mg/dL (7.8-10.44); Carbon Dioxide 24 mmol/L (23-31); Chloride 111 mmol/L (98-107); Estimated GFR-MDRD 90; Glucose 308 mg/dL (83-110); Magnesium 1.9 mg/dL (1.6-2.6); Phosphorus 2.9 mg/dL (2.3-4.7); Potassium 4.5 mmol/L (3.5-5.1); Sodium 140 mmol/L (136-145)
[2017-04-22 05:15] LABS: Band 12 % (5-11); Hemoglobin 9.9 g/dL (14.0-18.0); Lymphocytes 1 % (21-51); MDiff Complete? YES; Mean Corpuscular HGB CONC 32.5 g/dL (32.0-36.0); Mean Corpuscular Hemoglobin 30.3 pg (27.0-31.0); Mean Corpuscular Volume 93.2 fl (80.0-94.0); Mean Platelet Volume 6.8 fL (7.4-10.4); Metamyelocyte 1 % (0-0); Monocytes 2 % (0-10); Neutrophil 84 % (42-75); PLT Morphology Comment Appears Adequate; Platelet Count 311 thou/uL (130-400); RBC Distribution Width 12.9 % (11.5-14.5); Red Blood Cell (RBC) Count 3.27 mill/uL (4.70-6.10); White Blood Cell (WBC) Count 22.3 thou/uL (4.8-10.8)
[2017-04-22] MEDS: Meropenem 1 GM in Sterile Water 20 ML SLOW IVP SCH ×3 (05:54→22:18)
[2017-04-22] MEDS: Magnesium Oxide 400 MG TAB PO PRN ×2 (07:38→22:19)
[2017-04-22] MEDS: Carvedilol 6.25 MG TAB PO SCH ×2 (07:38→18:42)
--- NOTE | 2017-04-22 07:42 | EKG ---
Test Reason : Blood Pressure : / mmHG Vent. Rate : 169 BPM Atrial Rate : 338 BPM P-R Int : 000 ms QRS Dur : 072 ms QT Int : 236 ms P-R-T Axes : 000 039 055 degrees QTc Int : 395 ms Atrial tachycardia with 2:1 A-V conduction Nonspecific ST and T wave abnormality Abnormal ECG When compared with ECG of 01-OCT-1996 12:58, Atrial flutter has replaced Sinus rhythm Vent. rate has increased BY [address] Horacio GOULD ([id number]) on 04/22/2017 7:41:46 AM Referred By: Confirmed By:DR. Horacio GOULD
[2017-04-22] MEDS: Vancomycin HCl 1 GM in Premix Bag 1 BAG IVPB SCH ×2 (08:24→22:17)
[2017-04-22] MEDS: Famotidine/PF 20 mg/2ml Vial SLOW IVP SCH (08:24)
[2017-04-22] MEDS: Enoxaparin Sodium 40 MG/0.4 ML SYRINGE SC SCH (08:24)
--- NOTE | 2017-04-22 08:27 | PDOC.CTH ---
<Charlene Ford - Last Filed: 04/22/17 12:34> Cardiology Progress Note - Subjective The pt seen and examined. No overnight events. Vent sedation is off at this moment for possible extubation today; however, the pt is still drowsy and could not follow any commands. Unable to obtain ROS - Objective Vital Signs Temp Pulse Resp BP Pulse Ox 04/22/17 08:24 99 04/22/17 08:00 99.2 F 99 17 98 04/22/17 07:48 99.2 F 17 04/22/17 07:38 147/68 H 04/22/17 07:28 95 147/68 H 04/22/17 06:00 8 L 04/22/17 04:00 98.8 F 11 L 04/22/17 02:57 85 125/53 L 04/22/17 02:00 13 04/22/17 00:00 98.9 F 12 04/21/17 22:51 88 04/21/17 22:00 12 Admit Weight 169 lb Weight 171 lb 15.369 oz 04/21/17 04/22/17 04/23/17 06:59 06:59 06:59 Intake Total 3702.4 2421.8 80 Output Total 920 943 130 Balance 2782.4 1478.8 -50 - Physical Examination Neck: no JVD present Lungs: other: (diminished at bases) Heart: RRR Abdomen: soft Extremities: other: (1-2+ pitting edema in BLE) - Telemetry Telemetry Rhythm: SR w/ PVCs - Labs Result Diagrams: 04/22/17 03:28 04/22/17 03:28 - Assessment/Plan 1. A Fluter - Converted back to SR this AM with well controlled HR with Diltiazem 5mg/h; Stop Digoxin now. Increase Coreg from 6.25mg BID to 12.5mg BID ; on Lovenox; cont. monitor on tele; possible Afib ablation when his condition is stable 2. Resp. failure 2ndary to Influenza B and PNA - on IV antibiotics and Tamiflu; managed by ctrs/PCP 3. HTN - Increase Coreg from 6.25mg to 12.5mg BID for BP and HR 4. DM type 2 - on SS insulin; managed by PCP MAR reviewed Review of Systems - Review of Systems Constitutional: reports: see HPI EENTM: reports: see HPI Respiratory: reports: see HPI Cardiac (ROS): reports: see HPI ABD/GI: reports: see HPI : reports: see HPI Musculoskeletal: reports: see HPI Skin: reports: see HPI <Jacklyn Urrutia - Last Filed: 04/22/17 16:23> Cardiology Progress Note - Objective Vital Signs Temp Pulse Pulse Pulse Resp BP BP 04/22/17 12:05 87 96 144/56 H 04/22/17 12:00 98.4 F 04/22/17 10:44 91 16 04/22/17 08:35 151/90 H 04/22/17 08:24 99 04/22/17 08:00 99.2 F 99 17 04/22/17 07:48 99.2 F 17 04/22/17 07:38 147/68 H 04/22/17 07:28 95 147/68 H 04/22/17 06:00 8 L BP Pulse Ox Pulse Ox 04/22/17 12:05 162/74 H 95 04/22/17 12:00 88 L 04/22/17 10:44 91 L 04/22/17 08:35 04/22/17 08:24 04/22/17 08:00 98 04/22/17 07:48 04/22/17 07:38 04/22/17 07:28 04/22/17 06:00 Admit Weight 169 lb Weight 171 lb 15.369 oz 04/21/17 04/22/17 04/23/17 06:59 06:59 06:59 Intake Total 3702.4 2421.8 247 Output Total 848 701 4930 Balance 2782.4 1478.8 -1018 - Labs Result Diagrams: 04/22/17 03:28 04/22/17 03:28 - Assessment/Plan pt. seen and eval. by me. I agree with the A/P by the SEXUAL ASSAULT RESPONSE COORDINATOR. He is feeling better today and is in NSR. Exam : bilateral coarse rales but improved. RRR.
[2017-04-22] MEDS ORDERED: Digoxin 0.125 MG TAB PO SCH (09:00)
[2017-04-22] MEDS ORDERED: Carvedilol 6.25 MG TAB PO SCH (09:00)
[2017-04-22] MEDS ORDERED: Furosemide 20 MG/2 ML VIAL SLOW IVP SCH (09:15)
--- NOTE | 2017-04-22 09:26 | PRG ---
DATE OF SERVICE: 04/22/2017 SERVICE: Pulmonary Medicine INTERVAL HISTORY: The patient is doing fine from a respiratory standpoint. He is breathing comforta anuel on minimal support off the ventilator. He cannot provide any additional elements of the history because he is currently intubated. He has been on sedation holiday for the past 3 hours. He is maikol thing very comfortably. We put him on a spontaneous breathing trial and he transitioned over to this very nicely. He is a little slow to respond, but I do get him to respond appropriately. He demonst rates fairly good strength and an excellent shallow breathing index. He puts both thumbs up on both hands. PHYSICAL EXAMINATION: VITAL SIGNS: Currently afebrile with T-max of 99.2. Pulse 99, blood pressure 151/90, respirations 1 3, saturation 96% on 31% FiO2 and a PEEP of 5. GENERAL: The patient is awake and alert. He is in no apparent distress. LUNGS: Excellent air entry. There is no prolonged expiratory phase, wheezing, rhonchi or crackles. HEART: Normal rate, regular. ABDOMEN: Soft, nontender, nondistended. Bowel sounds are positive. MUSCULOSKELETAL: No cyanosis or clubbing. There is no pitting in the bilateral lower extremities. NEUROLOGIC: Grossly nonfocal. LABORATORY DATA: WBC 22.3, hemoglobin 9.9, platelets 311,000. PH 7.37, pCO2 34, pO2 is 80 on 60% FiO2 at the time (this was yesterday morning). Basic metabolic pr ofile, magnesium and phosphorus are all unremarkable. Respiratory culture is growing Keyla albican s. Blood cultures x2 are negative. The Keyla was quantified as being moderate. Many white blood cells were identified. ASSESSMENT: 1. Acute hypoxic respiratory failure, slowly improving. 2. Healthcare-associated pneumonia. 3. Influenza A. 4. Atrial fibrillation with rapid ventricular response. 5. Type 2 diabetes mellitus. PLAN: We will complete a spontaneous breathing trial. At the end of it, if he meets criteria, extub ation will be considered. Once extubation occurs will work on mobilizing him and discontinuing his F oley catheter once more appropriate and cooperative. Empiric antibiotics will be continued for the t mike being. At this point, I will not initiate any antifungal coverage, though this will be considere d at some future time, particularly if his condition deteriorates. Critical care time: 30 minutes.
--- NOTE | 2017-04-22 18:51 | PDOC.PN ---
- Subjective Encounter Start Date: 04/22/17 Encounter Start Time: 09:00 Pt seen for followup re: pneumonia. Extubated earlier today, speaking in low voice. Denies chest pain or shortness of breath. - Objective MAR Reviewed: Yes Vital Signs & Weight: Vital Signs (12 hours) Temp Pulse Pulse Pulse Resp BP BP 04/22/17 18:42 151/90 H 04/22/17 18:32 93 16 04/22/17 16:00 98.3 F 04/22/17 12:05 87 96 144/56 H 04/22/17 12:00 98.4 F 04/22/17 10:44 91 16 04/22/17 08:35 151/90 H 04/22/17 08:24 99 04/22/17 08:00 99.2 F 99 17 04/22/17 07:48 99.2 F 17 04/22/17 07:38 147/68 H 04/22/17 07:28 95 147/68 H BP Pulse Ox Pulse Ox 04/22/17 18:42 04/22/17 18:32 88 L 04/22/17 16:00 04/22/17 12:05 162/74 H 95 04/22/17 12:00 88 L 04/22/17 10:44 91 L 04/22/17 08:35 04/22/17 08:24 04/22/17 08:00 98 04/22/17 07:48 04/22/17 07:38 04/22/17 07:28 Weight Admit Weight 169 lb Weight 171 lb 15.369 oz Most Recent Monitor Data Heart Rate from ECG 88 NIBP 136/62 NIBP BP-Mean 100 Respiration from ECG 20 SpO2 91 I&O: 04/21/17 04/22/17 04/23/17 06:59 06:59 06:59 Intake Total 3702.4 2421.8 455 Output Total 677 726 4946 Balance 2782.4 1478.8 -1040 Result Diagrams: 04/22/17 03:28 04/22/17 03:28 Additional Labs: Accuchecks 04/22/17 04/22/17 04/22/17 16:43 10:49 03:28 POC Glucose 258 H 306 H 288 H 04/21/17 04/19/17 21:53 19:07 POC Glucose 257 H 237 H EKG Reviewed by me: Yes (Tele: NSR) Phys Exam - Physical Examination Constitutional: NAD HEENT: moist MMs Neck: supple Levi crackles Cardiovascular: RRR Gastrointestinal: soft Musculoskeletal: edema present Neurological: moves all 4 limbs Psychiatric: normal affect Dx/Plan (1) Pneumonia Code(s): J18.9 - PNEUMONIA, UNSPECIFIED ORGANISM Status: Acute (2) Acute respiratory failure Code(s): J96.00 - ACUTE RESPIRATORY FAILURE, UNSP W HYPOXIA OR HYPERCAPNIA Status: Acute (3) Influenza B Code(s): J10.1 - FLU DUE TO OTH IDENT INFLUENZA VIRUS W OTH RESP MANIFEST Status: Acute (4) Atrial flutter Code(s): I48.92 - UNSPECIFIED ATRIAL FLUTTER Status: Acute (5) Hypertension Code(s): I10 - ESSENTIAL (PRIMARY) HYPERTENSION Status: Chronic (6) BPH (benign prostatic hyperplasia) Code(s): N40.0 - BENIGN PROSTATIC HYPERPLASIA WITHOUT LOWER URINRY TRACT SYMP Status: Chronic (7) Diabetes mellitus type 2 in nonobese Code(s): E11.9 - TYPE 2 DIABETES MELLITUS WITHOUT COMPLICATIONS Status: Chronic - Plan * . Continue IV antibiotics as below. Change insulin sliding scale to moderate, start metformin (home medication). Resume lisinopril, monitor vital signs and titrate antihypertensives as needed. Review of Systems - Review of Systems Respiratory: Cough, SOB with Excertion Cardiovascular: negative: chest pain, palpitations, orthopnea, paroxysmal nocturnal dyspnea, edema, light headedness, other Gastrointestinal: negative: Nausea, Vomiting, Abdominal Pain, Diarrhea, Constipation, Melena, Hematochezia - Medications/Allergies Allergies/Adverse Reactions: Allergies Allergy/AdvReac Type Severity Reaction Status Date / Time No Known Allergies Allergy Verified 12/04/16 00:34 Medications: Current Medications Acetaminophen (Tylenol) 650 mg PO Q4H PRN PRN Reason: Headache/Fever or Pain Acetaminophen (Tylenol) 650 mg VA Q4H PRN PRN Reason: Headache/Fever or Pain Last Admin: 04/20/17 17:32 Dose: 650 mg Albuterol/Ipratropium (Duoneb) 3 ml NEB [id number] [facility] Last Admin: 04/22/17 18:32 Dose: 3 ml Bisacodyl (Dulcolax) 10 mg PO DAILYPRN PRN PRN Reason: Constipation Carvedilol (Coreg) 12.5 mg PO BID-WM [facility] Last Admin: 04/22/17 18:42 Dose: Not Given Dextrose/Water (Dextrose 50%) 25 gm SLOW IVP PRN PRN PRN Reason: Hypoglycemia Enoxaparin Sodium (Lovenox) 40 mg SC 0900 [facility] Last Admin: 04/22/17 08:24 Dose: 40 mg Glucagon (Glucagon) 1 mg IM PRN PRN PRN Reason: Hypoglycemia Vancomycin HCl 1 gm/ Device 200 mls @ 200 mls/hr IVPB Q12HR [facility] Last Admin: 04/22/17 08:24 Dose: 200 mls Meropenem 1 gm/ Sterile Water 20 mls @ 240 mls/hr SLOW IVP Q8HR [facility] Last Admin: 04/22/17 14:05 Dose: 20 mls Levofloxacin 750 mg/ Device 150 mls @ 100 mls/hr IVPB 1200 [facility] Last Admin: 04/22/17 12:52 Dose: 150 mls Dextrose/Water (D5w) 1,000 mls @ 0 mls/hr IV .Q0M PRN; As Directed PRN Reason: Hypoglycemia Potassium Chloride 40 meq/ (Sodium Chloride) 270 mls @ 135 mls/hr IVPB ASDIR PRN PRN Reason: FOR SERUM K+ 2.5 - 3.5 Potassium Chloride 40 meq/ (Device) 100 mls @ 50 mls/hr IVPB ASDIR PRN PRN Reason: FOR SERUM K+ 2.5 - 3.5 Magnesium Sulfate 1 gm/ Sodium (Chloride) 102 mls @ 102 mls/hr IV PRN PRN PRN Reason: MAG LEVEL 1.4 - 2.0 Magnesium Sulfate 2 gm/ Device 100 mls @ 100 mls/hr IVPB ASDIR PRN PRN Reason: MAGNESIUM < 1.4 Potassium Phosphate 9 mmol/ (Sodium Chloride) 103 mls @ 25.75 mls/hr IVPB ASDIR PRN PRN Reason: Phosphate 1.0-1.8 Potassium Phosphate 12 mmol/ (Sodium Chloride) 254 mls @ 63.5 mls/hr IV ASDIR PRN PRN Reason: Serum phosphate 0.5-0.9 Potassium Phosphate 15 mmol/ (Sodium Chloride) 255 mls @ 63.75 mls/hr IV ASDIR PRN PRN Reason: Serum Phos < 0.5 Sodium Chloride (Normal Saline 0.9%) 1,000 mls @ 0 mls/hr IV .Q0M [facility] PRN Reason: KVO Diltiazem HCl 125 mg/ Sodium (Chloride) 125 mls @ 5 mls/hr IVPB INF [facility] PRN Reason: Protocol Last Admin: 04/21/17 23:22 Dose: 125 mls Insulin Human Lispro (Humalog) 0 units SC .MILD SLIDING SCALE PRN PRN Reason: Mild Correctional Scale Last Admin: 04/22/17 16:43 Dose: 4 unit Magnesium Oxide (Magnesium Oxide) 400 mg PO BIDPRN PRN PRN Reason: FOR SERUM MAG 1.4 - 2.0 Last Admin: 04/22/17 07:38 Dose: 400 mg Magnesium Oxide (Magnesium Oxide) 800 mg PO PRN PRN PRN Reason: FOR SERUM MAG < 1.4 Methylprednisolone Sodium Succinate (Solu-Medrol) 40 mg IVP DAILY [facility] Last Admin: 04/22/17 08:24 Dose: 40 mg Miscellaneous Medication (Phos-Nak) 1 pkt PO TIDPRN PRN PRN Reason: FOR PHOS LEVEL 1.0 - 1.8 Miscellaneous Medication (Phos-Nak) 2 pkt PO TIDPRN PRN PRN Reason: FOR PHOS LEVEL 0.5 - 1.0 Ccu Electrolyte (Replacement Protocol) 0 each FS PRN PRN PRN Reason: FOR ELECTROLYTE REPLACEMENT Discontinue Previous Narcotic Pain Medications And Benzodiazepines 1 each FS .ONE [facility] Stop: 05/20/17 11:16 Potassium Chloride (K-Dur) 40 meq PO ASDIR PRN PRN Reason: FOR SERUM K+ 2.5 - 3.5 Potassium Chloride (Klor-Con) 40 meq PER TUBE ASDIR PRN PRN Reason: FOR SERUM K+ 2.5-3.5 Sodium Chloride (Flush - Normal Saline) 10 ml IVF Q12HR [facility] Last Admin: 04/22/17 08:26 Dose: 10 ml Sodium Chloride (Flush - Normal Saline) 10 ml IVF PRN PRN PRN Reason: Saline Flush
[2017-04-22] MEDS ORDERED: Dextrose 5% in Water 1,000 ML IV PRN (19:01)
[2017-04-22] MEDS ORDERED: Dextrose 50% Abboject 50 ML SYRINGE SLOW IVP PRN (19:01)
[2017-04-22] MEDS ORDERED: Acetaminophen 325 MG TAB PO PRN (19:02)
[2017-04-23 04:17] LABS: Anion Gap 14 mmol/L (10-20); BUN (Urea Nitrogen) 52 mg/dL (8.4-25.7); Calc. Creatinine Clearance 55 mL/min (70-130); Calcium 8.8 mg/dL (7.8-10.44); Carbon Dioxide 24 mmol/L (23-31); Chloride 111 mmol/L (98-107); Estimated GFR-MDRD 72; Glucose 266 mg/dL (83-110); Potassium 4.4 mmol/L (3.5-5.1); Sodium 145 mmol/L (136-145)
[2017-04-23] MEDS ORDERED: Fentanyl BOLUS 250 ML IVPB PRN (04:30)
[2017-04-23] MEDS ORDERED: fentaNYL Citrate/PF 2,000 MCG in Sodium Chloride 0.9% 60 ML IV SCH (04:30)
[2017-04-23] MEDS ORDERED: DISCONTINUE PREVIOUS NARCOTIC PAIN MEDICATIONS AND BENZODIAZEPINES FS SCH (04:30)
[2017-04-23] MEDS ORDERED: Morphine 2 MG/ML SYRINGE SLOW IVP PRN (04:30)
[2017-04-23] MEDS ORDERED: Lorazepam 2 MG/ML VIAL SLOW IVP PRN (04:30)
--- NOTE | 2017-04-23 04:31 | PDOC.EVN ---
Event Note - Event Note Event Note: Code blue called as patient suddenly lost a pulse, and developed cardiopulmonary arrest. Initial rhythm was asytole. ACLS was initiated, and he was intubated, and regained a pulse and adequate blood pressure. Unknown Etiology.
[2017-04-23] MEDS: Propofol 1,000 MG/100 ML VIAL IV PRN (04:47)
[2017-04-23 04:50] LABS: Actual Bicarbonate (HCO3a) 24.7 mEq/L (22-26); Base Excess (BEa) -0.6 mEq/L (0 (+/-) 2.5); CO2 Tension 43.3 mmHg (35.0-45.0); Calcium, Ionized 1.2 mmol/L (1.12-1.30); Hematocrit-ABG 32.6 % (42.0-52.0); Hemoglobin (Hb) 10.8 g/dL (14.0-18.0); pH, Arterial 7.37 (7.35-7.45)
[2017-04-23 04:52] LABS: O2 Tension (PaO2) 34.9 mmHg (80.0-100.0); Puncture Site RR
[2017-04-23 04:53] LABS: ALV-art Gradient 343.575 (0-20)
[2017-04-23 05:05] LABS: Band 11 % (5-11); Hemoglobin 11.4 g/dL (14.0-18.0); Lymphocytes 3 % (21-51); MDiff Complete? YES; Mean Corpuscular HGB CONC 31.4 g/dL (32.0-36.0); Mean Corpuscular Hemoglobin 29.3 pg (27.0-31.0); Mean Corpuscular Volume 93.2 fl (80.0-94.0); Mean Platelet Volume 6.8 fL (7.4-10.4); Monocytes 3 % (0-10); Neutrophil 83 % (42-75); PLT Morphology Comment Appears Adequate; Platelet Count 352 thou/uL (130-400); RBC Distribution Width 12.8 % (11.5-14.5); RBC Morphology Normal; Red Blood Cell (RBC) Count 3.88 mill/uL (4.70-6.10); White Blood Cell (WBC) Count 27.9 thou/uL (4.8-10.8)
[2017-04-23 05:06] LABS: Phosphorus 1.6 mg/dL (2.3-4.7)
[2017-04-23] MEDS: Meropenem 1 GM in Sterile Water 20 ML SLOW IVP SCH (06:48)
[2017-04-23 07:15] LABS: Actual Bicarbonate (HCO3a) 24.8 mEq/L (22-26); Base Excess (BEa) 0.2 mEq/L (0 (+/-) 2.5); Calcium, Ionized 1.2 mmol/L (1.12-1.30); Hematocrit-ABG 30.6 % (42.0-52.0); Hemoglobin (Hb) 10.2 g/dL (14.0-18.0); O2 Tension (PaO2) 55.4 mmHg (80.0-100.0); pH, Arterial 7.41 (7.35-7.45)
[2017-04-23 07:18] LABS: Puncture Site RB
[2017-04-23] MEDS ORDERED: metFORMIN 500 MG TAB PO SCH (08:00)
--- NOTE | 2017-04-23 08:08 | PRG ---
DATE OF SERVICE: 04/23/2017 SUBJECTIVE: Events have been reviewed, about 4:00 this morning, he had a bradycardic event and respi ratory arrest. The CODE team was called. He was intubated. He is awake and alert. Nods and moves all his extremities now. I am told he was doing reasonably we ll prior to that and had just been bathed. His heart rate was in the 80s and dropped to 20s and then he arrested. He is back in atrial fibrillation with frequent PVCs at this time. OBJECTIVE: VITAL SIGNS: Blood pressure 121/57, oximetry is 92, respiratory rate is in the low 30s, ventilatory rate set up to a rate of 24 now. LUNGS: Remarkable for coarse equal breath sounds. HEART: Regular rhythm. ABDOMEN: Soft. LABORATORY DATA AND IMAGING: Chest radiograph shows patchy bilateral infiltrates, very similar to e film on 04/21/2017. Labs pending. Blood gas showed a pH of 7.36, this was repeated and it is pend ing. IMPRESSION AND PLAN: Respiratory arrest followed by cardiac arrest? secondary to mucous plug. I doubt this is thromboembolic event. His exam findings consistent with diaphragm dysfunction at thi s time. He will be sedated and ventilated again and continue with medications including Cardizem for his atri al fibrillation. Critical care time was 30 minutes.
--- NOTE | 2017-04-23 08:44 | RAD ---
PORTABLE CHEST ONE VIEW: Date: 04-23-17 Time: 12:13 a.m. History: Respiratory failure. FINDINGS/IMPRESSION: Comparison is made with exam of 04-21-17. Endotracheal and nasogastric tubes remains in place. There are extensive bilateral airspace densities again seen with interval improvement in the left lower lobe. No pneumothoraces or large effusions ar e seen. POS: [facility]
--- NOTE | 2017-04-23 08:50 | RAD ---
CHEST ONE VIEW: HISTORY: Reposition ventilator tube. COMPARISON: Chest, one view, same day. FINDINGS: The patient is intubated with the endotracheal tube tip above the zeenat 3.8 cm. Extensive perihilar and diffuse air space opacities. Mild elevation of right minor fissure. Small layering right pleural effusion. Enteric tube tip below the diaphragm and out of the field of view. IMPRESSION: Endotracheal tube tip 3.8 cm craniad to the zeenat. POS: [facility]
[2017-04-23] MEDS: Carvedilol 6.25 MG TAB PO SCH ×2 (09:30→18:45)
[2017-04-23] MEDS: Aspirin 81 mg Enteric Coated Tablet PO SCH (09:31)
[2017-04-23] MEDS: Lisinopril 10 MG TAB PO SCH (09:31)
[2017-04-23] MEDS: Vancomycin HCl 1 GM in Premix Bag 1 BAG IVPB SCH (09:34)
[2017-04-23] MEDS: Enoxaparin Sodium 40 MG/0.4 ML SYRINGE SC SCH (10:29)
--- NOTE | 2017-04-23 10:43 | CT ---
CT OF HEAD NONCONTRAST: Indication: Left sided weakness. FINDINGS: There is mild chronic microvascular ischemic disease. No intracranial hemorrhage, mass effect, or mid line shift. Mild parenchymal volume loss with compensatory dilatation of the ventricular system is pr esent. Partially imaged opacification of the left maxillary sinus with fluid level noted. Patient motion degrades image quality and limits assessment. IMPRESSION: 1. No acute intracranial hemorrhage or mass effect. 2. Mild chronic microvascular ischemic disease. POS: [facility]
[2017-04-23] MEDS: HumaLOG 300 UNITS/3 ML VIAL SC PRN ×3 (10:58→22:02)
--- NOTE | 2017-04-23 11:14 | PDOC.CTH ---
<Charlene Ford - Last Filed: 04/23/17 11:13> Cardiology Progress Note - Subjective The pt seen and examined. The event of Bradycardia first, then Resp. arrest this AM. During the event, his HR was back to Afib with frequent PVCs. He was reintubated and converted back to SR with PVCs. - Objective Vital Signs Temp Pulse Resp BP Pulse Ox 04/23/17 10:59 97 111/69 04/23/17 09:31 137/68 04/23/17 09:30 137/68 04/23/17 08:00 99.5 F 102 H 26 H 100 04/23/17 07:04 102 H 137/68 04/23/17 07:00 99.5 F 04/23/17 04:59 108 H 04/23/17 04:30 100 04/23/17 03:08 94 L 04/23/17 03:00 98.7 F 04/23/17 02:35 102 H 16 94 L Admit Weight 169 lb Weight 166 lb 0.129 oz 04/22/17 04/23/17 04/24/17 06:59 06:59 06:59 Intake Total 2421.8 1369 100 Output Total 943 2350 145 Balance 1478.8 -981 -45 - Physical Examination General/Neuro: other: (sedated) Neck: no JVD present Lungs: other: (coases) Heart: RRR Abdomen: soft Extremities: other: (No edemas) - Telemetry Telemetry Rhythm: SR with PVCs - Labs Result Diagrams: 04/23/17 03:27 04/23/17 03:27 - Assessment/Plan 1. A Fluter - Back to Afib with frequent PVCs during CODE events this AM; Converted back to SR this AM with well controlled HR at this time; on Lovenox; cont. monitor on tele; possible Afib ablation when his condition is stable 2. Resp. failure 2ndary to Influenza B and PNA - Reintubated this AM due to Resp. arrest; on IV antibiotics and Tamiflu; managed by investment executive/PCP 3. HTN - stable with current medication 4. DM type 2 - on SS insulin; managed by PCP MAR reviewed Review of Systems - Review of Systems Constitutional: reports: see HPI EENTM: reports: see HPI Respiratory: reports: see HPI Cardiac (ROS): reports: see HPI ABD/GI: reports: see HPI : reports: see HPI Musculoskeletal: reports: see HPI <Jacklyn Urrutia - Last Filed: 04/23/17 18:00> Cardiology Progress Note - Objective Vital Signs Temp Pulse Resp BP Pulse Ox 04/23/17 13:52 86 92/51 L 04/23/17 11:00 97.6 F 04/23/17 10:59 97 111/69 04/23/17 10:00 26 H 04/23/17 09:31 137/68 04/23/17 09:30 137/68 04/23/17 08:00 99.5 F 102 H 26 H 100 04/23/17 07:04 102 H 137/68 04/23/17 07:00 99.5 F Admit Weight 169 lb Weight 166 lb 0.129 oz 04/22/17 04/23/17 04/24/17 06:59 06:59 06:59 Intake Total 2421.8 1369 400 Output Total 943 2350 225 Balance 1478.8 -981 175 - Labs Result Diagrams: 04/23/17 03:27 04/23/17 03:27 - Assessment/Plan Pt. seen and eval. by me. I agree with the A/P by the DELIVERY DRIVER/SUPERVISOR. He is maintaining NSR.
--- NOTE | 2017-04-23 13:22 | PDOC.PN ---
- Subjective Encounter Start Date: 04/23/17 Encounter Start Time: 12:35 -: non-verbal Subjective: INTUBATED AND SEDATED - Objective MAR Reviewed: Yes Vital Signs & Weight: Vital Signs (12 hours) Temp Pulse Resp BP Pulse Ox 04/23/17 11:00 97.6 F 04/23/17 10:59 97 111/69 04/23/17 10:00 26 H 04/23/17 09:31 137/68 04/23/17 09:30 137/68 04/23/17 08:00 99.5 F 102 H 26 H 100 04/23/17 07:04 102 H 137/68 04/23/17 07:00 99.5 F 04/23/17 04:59 108 H 04/23/17 04:30 100 04/23/17 03:08 94 L 04/23/17 03:00 98.7 F 04/23/17 02:35 102 H 16 94 L Weight Admit Weight 169 lb Weight 166 lb 0.129 oz Most Recent Monitor Data Heart Rate from ECG 96 NIBP 101/58 NIBP BP-Mean 67 Respiration from ECG 26 SpO2 100 I&O: 04/22/17 04/23/17 04/24/17 06:59 06:59 06:59 Intake Total 2421.8 1369 400 Output Total 943 2350 225 Balance 1478.8 -981 175 Result Diagrams: 04/23/17 03:27 04/23/17 03:27 Additional Labs: Accuchecks 04/22/17 04/22/17 22:30 16:43 POC Glucose 244 H 258 H Radiology Reviewed by me: Yes Phys Exam - Physical Examination INTUBATED AND SEDATED HEENT: moist MMs ETT IN PLACE Neck: supple COARSE Cardiovascular: irregular Gastrointestinal: soft, positive bowel sounds Musculoskeletal: no edema, pulses present INTUBATED AND SEDATED Deviation from normal: INTUBATED AND SEDATED Skin: no rash Dx/Plan (1) Acute respiratory failure Code(s): J96.00 - ACUTE RESPIRATORY FAILURE, UNSP W HYPOXIA OR HYPERCAPNIA Status: Acute (2) Atrial flutter Code(s): I48.92 - UNSPECIFIED ATRIAL FLUTTER Status: Acute (3) Influenza B Code(s): J10.1 - FLU DUE TO OTH IDENT INFLUENZA VIRUS W OTH RESP MANIFEST Status: Acute (4) Pneumonia Code(s): J18.9 - PNEUMONIA, UNSPECIFIED ORGANISM Status: Acute (5) Diabetes mellitus type 2 in nonobese Code(s): E11.9 - TYPE 2 DIABETES MELLITUS WITHOUT COMPLICATIONS Status: Chronic (6) Hypertension Code(s): I10 - ESSENTIAL (PRIMARY) HYPERTENSION Status: Chronic (7) Hyponatremia Code(s): E87.1 - HYPO-OSMOLALITY AND HYPONATREMIA Status: Resolved - Plan cont current plan of care, continue antibiotics, respiratory therapy * . - Discharge Day Encounter end time: 13:25
[2017-04-23] MEDS ORDERED: Furosemide 40 MG/4 ML VIAL SLOW IVP SCH (13:45)
--- NOTE | 2017-04-23 17:26 | PRG ---
DATE OF SERVICE: 04/23/2017 SERVICE: Pulmonary Medicine. INTERVAL HISTORY: The patient did poorly overnight. He was breathing very comfortably, but then nael denly developed hypoxemic failure and quickly evolved into PEA arrest. He got chest compressions cuca efly, but spontaneously returned to circulation. Afterwards, this morning, he is awake and alert. H e is following commands once again and essentially returned back to how he was prior to the code even t. A CT scan of the head was ordered. He is about to go down for this thing now, although I do not see any obvious focal neurologic deficit. PHYSICAL EXAMINATION: VITAL SIGNS: Afebrile, pulse 96, blood pressure 101/58, respirations 26, saturation 100% on 50% FiO2 and a PEEP of 5. GENERAL: The patient is awake and alert. No apparent distress. LUNGS: Decent air entry. Crackles were once again present. HEART: Normal rate and regular. ABDOMEN: Soft, nontender and nondistended. Bowel sounds are positive. MUSCULOSKELETAL: No cyanosis or clubbing. There is no pitting in the bilateral lower extremities. NEUROLOGIC: Grossly nonfocal. LABORATORY DATA: WBC 27.9 and up trending, hemoglobin 11.4, platelets 352,000. Band count is stable at 11% and neutrophil count is 83%. PH 7.41, pCO2 of 40, pO2 of 55.4. Creatinine 1.17 and gently u p trending. Basic metabolic profile is otherwise unremarkable. BUN is 52. Phosphorus 1.6. Magnesi um 2.0. Respiratory cultures presumptively growing Keyla albicans. Blood cultures x2 are otherwis e unremarkable. IMAGING DATA: 1. CT of the brain demonstrates no acute intracranial abnormality. No hemorrhage or mass effect is e vident. Chronic microvascular disease is otherwise identified. 2. Chest x-ray demonstrates bilateral infiltrates, small layering right-sided pleural effusion. Ent ashley catheter courses below the level of the diaphragm. Extensive perihilar diffuse airspace opacifi cations are roughly stable. ASSESSMENT: 1. Acute hypoxic respiratory failure, stable. 2. Healthcare-associated pneumonia. 3. Influenza A. 4. Atrial fibrillation with rapid ventricular response, currently sinus rhythm. 5. Type 2 diabetes mellitus. PLAN: The patient will remain on mechanical ventilation for the next 24 hours. We will put him on p ressure control ventilation, slowly wean his PEEP and FiO2 as the day goes on. Phosphorus will be re placed and I will check the level once again tomorrow morning. We will continue to diurese the patie nt down to euvolemia as tolerated. Pulmonary Critical Care will continue to follow. CRITICAL CARE TIME: 30 minutes.
[2017-04-23] MEDS: Micafungin 100 MG in Sodium Chloride 0.9% 100 ML IVPB SCH (17:33)
[2017-04-23] MEDS: Lovastatin 20 MG TAB PO SCH (18:45)
[2017-04-23] MEDS ORDERED: EPINEPHrine 1 MG/10 ML Abboject SYRINGE ONE (23:01)
[2017-04-23] MEDS ORDERED: Sodium Bicarb 50 MEQ/50 ML Abboject 8.4% SYRINGE ONE (23:01)
[2017-04-24] MEDS: Propofol 1,000 MG/100 ML VIAL IV PRN ×2 (02:58→17:53)
[2017-04-24 05:28] LABS: Anion Gap 16 mmol/L (10-20); BUN (Urea Nitrogen) 67 mg/dL (8.4-25.7); Calc. Creatinine Clearance 51 mL/min (70-130); Calcium 8.2 mg/dL (7.8-10.44); Carbon Dioxide 24 mmol/L (23-31); Chloride 112 mmol/L (98-107); Estimated GFR-MDRD 67; Glucose 192 mg/dL (83-110); Phosphorus 2.4 mg/dL (2.3-4.7); Potassium 4.2 mmol/L (3.5-5.1); Sodium 148 mmol/L (136-145)
[2017-04-24 05:39] LABS: Band 3 % (5-11); Hemoglobin 10.1 g/dL (14.0-18.0); Lymphocytes 3 % (21-51); MDiff Complete? YES; Mean Corpuscular HGB CONC 32.3 g/dL (32.0-36.0); Mean Corpuscular Hemoglobin 30.1 pg (27.0-31.0); Mean Corpuscular Volume 93.2 fl (80.0-94.0); Mean Platelet Volume 7.3 fL (7.4-10.4); Monocytes 3 % (0-10); Neutrophil 91 % (42-75); Platelet Count 253 thou/uL (130-400); RBC Distribution Width 12.8 % (11.5-14.5); Red Blood Cell (RBC) Count 3.36 mill/uL (4.70-6.10); White Blood Cell (WBC) Count 23.1 thou/uL (4.8-10.8)
--- NOTE | 2017-04-24 08:18 | PDOC.CTH ---
<Charlene Ford - Last Filed: 04/24/17 08:13> Cardiology Progress Note - Subjective The pt seen and examined. No overnight events. The pt is still intubating and under vent sedation. - Objective Vital Signs Temp Pulse Resp BP Pulse Ox 04/24/17 08:10 94 155/90 H 04/24/17 06:00 22 H 04/24/17 04:00 99.0 F 21 H 04/24/17 02:00 25 H 04/24/17 01:28 83 04/24/17 01:23 84 21 H 100 04/24/17 00:00 98.2 F 24 H 04/23/17 22:17 82 21 H 100 04/23/17 22:11 84 04/23/17 22:00 23 H 04/23/17 21:00 99.3 F Admit Weight 169 lb Weight 172 lb 2.896 oz 04/23/17 04/24/17 04/25/17 06:59 06:59 06:59 Intake Total 1369 1784 Output Total 2350 1265 Balance -981 519 - Physical Examination General/Neuro: other: (under Vent sedation) Neck: no JVD present Lungs: other: (diminished at bases) Heart: RRR Abdomen: soft Extremities: other: - Telemetry Telemetry Rhythm: SR 90s - Labs Result Diagrams: 04/24/17 03:20 04/24/17 03:20 - Assessment/Plan 1. A Fluter - Remains in SR; Hx of Back to Afib with frequent PVCs during CODE events on 04/23/17; on Lovenox; cont. monitor on tele; possible Afib ablation when his condition is stable 2. Resp. failure 2ndary to Influenza B and PNA - Reintubated with vent sedation on 04/23/17 due to Resp. arrest; on IV antibiotics and Tamiflu; managed by paper guillotine operator/PCP 3. HTN - Start Norvasc 5mg QD; cont. monitor 4. DM type 2 - on SS insulin; managed by PCP MAR reviewed Review of Systems - Review of Systems Constitutional: reports: see HPI EENTM: reports: see HPI Respiratory: reports: see HPI Cardiac (ROS): reports: see HPI ABD/GI: reports: see HPI : reports: see HPI Musculoskeletal: reports: see HPI <Urrutia,G Darrel - Last Filed: 04/24/17 10:01> Cardiology Progress Note - Objective Vital Signs Temp Pulse Resp BP Pulse Ox 04/24/17 08:10 94 155/90 H 04/24/17 08:00 99.2 F 32 H 04/24/17 06:00 22 H 04/24/17 04:00 99.0 F 21 H 04/24/17 02:00 25 H 04/24/17 01:28 83 04/24/17 01:23 84 21 H 100 04/24/17 00:00 98.2 F 24 H 04/23/17 22:17 82 21 H 100 04/23/17 22:11 84 04/23/17 22:00 23 H Admit Weight 169 lb Weight 172 lb 2.896 oz 04/23/17 04/24/17 04/25/17 06:59 06:59 06:59 Intake Total 1369 1784 Output Total 2350 1265 400 Balance -981 519 -400 - Labs Result Diagrams: 04/24/17 03:20 04/24/17 03:20 - Assessment/Plan Pt. seen and eval. by me. i agree with the A/P by the DECAL TRANSFERRER. His BUN:Creat. indicate that he is on the dry side. O2 sats are still in the 85-88% range on the ventilator. He remains in NSR. Cardiac status is stable at the present.
[2017-04-24] MEDS ORDERED: Furosemide 40 MG/4 ML VIAL SLOW IVP SCH (09:00)
[2017-04-24] MEDS: Aspirin 81 mg Enteric Coated Tablet PO SCH (09:58)
[2017-04-24] MEDS: Carvedilol 6.25 MG TAB PO SCH ×2 (09:58→17:05)
[2017-04-24] MEDS: Amlodipine 5 MG TAB PO SCH (09:58)
[2017-04-24] MEDS: Lisinopril 10 MG TAB PO SCH (09:59)
[2017-04-24] MEDS: Enoxaparin Sodium 40 MG/0.4 ML SYRINGE SC SCH (10:05)
[2017-04-24] MEDS: HumaLOG 300 UNITS/3 ML VIAL SC PRN ×3 (12:17→21:42)
--- NOTE | 2017-04-24 15:28 | PDOC.PN ---
- Subjective Encounter Start Date: 04/24/17 Encounter Start Time: 15:26 Subjective: remains intubated. - Objective MAR Reviewed: Yes Vital Signs & Weight: Vital Signs (12 hours) Temp Pulse Resp BP Pulse Ox 04/24/17 15:04 87 102/65 04/24/17 14:00 22 H 04/24/17 13:52 91 121/69 04/24/17 12:00 99.1 F 29 H 04/24/17 10:49 92 04/24/17 10:22 89 173/86 H 04/24/17 10:00 30 H 04/24/17 08:10 94 155/90 H 04/24/17 08:00 99.1 F 95 29 H 95 04/24/17 06:00 22 H 04/24/17 04:00 99.0 F 21 H Weight Admit Weight 169 lb Weight 172 lb 2.896 oz Most Recent Monitor Data Heart Rate from ECG 87 NIBP 121/62 NIBP BP-Mean 90 Respiration from ECG 23 SpO2 97 I&O: 04/23/17 04/24/17 04/25/17 06:59 06:59 06:59 Intake Total 1369 1784 Output Total 2350 1265 2175 Balance -981 519 -2175 Result Diagrams: 04/24/17 03:20 04/24/17 03:20 Additional Labs: Accuchecks 04/24/17 04/23/17 04/23/17 12:16 21:35 16:32 POC Glucose 256 H 268 H 278 H 04/23/17 10:42 POC Glucose 291 H Microbiology 04/20/17 10:50 Post Bronchial washings Respiratory Culture - Final Presumptive Keyla albicans 04/20/17 17:36 Venous blood - Left Hand Blood Culture - Preliminary NO GROWTH AT 48 HOURS 04/20/17 17:30 Venous blood - Right Hand Blood Culture - Preliminary NO GROWTH AT 48 HOURS Phys Exam - Physical Examination intubated.opens eyes w verbal stimulii HEENT: PERRLA, moist MMs, sclera anicteric, TM's clear, oral pharynx no lesions , 2+ tonsils ETT Neck: no nodes, no JVD, supple, full ROM Respiratory: no wheezing, no rales Cardiovascular: RRR, no significant murmur Gastrointestinal: soft, non-tender, no distention, positive bowel sounds Musculoskeletal: pulses present, edema present Skin: no rash Dx/Plan (1) Acute respiratory failure Code(s): J96.00 - ACUTE RESPIRATORY FAILURE, UNSP W HYPOXIA OR HYPERCAPNIA Status: Acute Qualifiers: Respiratory failure complication: hypoxia and hypercapnia Qualified Code(s) : J96.01 - Acute respiratory failure with hypoxia; J96.02 - Acute respiratory failure with hypercapnia; J96.02 - Acute respiratory failure with hypercapnia; J96.02 - Acute respiratory failure with hypercapnia (2) Atrial flutter Code(s): I48.92 - UNSPECIFIED ATRIAL FLUTTER Status: Acute (3) Pneumonia Code(s): J18.9 - PNEUMONIA, UNSPECIFIED ORGANISM Status: Acute (4) BPH (benign prostatic hyperplasia) Code(s): N40.0 - BENIGN PROSTATIC HYPERPLASIA WITHOUT LOWER URINRY TRACT SYMP Status: Chronic (5) Diabetes mellitus type 2 in nonobese Code(s): E11.9 - TYPE 2 DIABETES MELLITUS WITHOUT COMPLICATIONS Status: Chronic (6) Hypertension Code(s): I10 - ESSENTIAL (PRIMARY) HYPERTENSION Status: Chronic (7) Influenza A Code(s): J10.1 - FLU DUE TO OTH IDENT INFLUENZA VIRUS W OTH RESP MANIFEST Status: Acute - Plan beasley catheter, continue antibiotics, respiratory therapy, DVT proph w/SCDs cont IV ABx/steroids.Micafungin added for keyla on bronch. -: cont vent support per PCCM. -: cont BB,cardiazem drip for a-flutter.cardiology following. -: monitor lytes etc.cont supportive care * . Review of Systems - Review of Systems Other: sedated and intubated.can not be obtained - Medications/Allergies Allergies/Adverse Reactions: Allergies Allergy/AdvReac Type Severity Reaction Status Date / Time No Known Allergies Allergy Verified 12/04/16 00:34 Medications: Current Medications Acetaminophen (Tylenol) 650 mg PO Q4H PRN PRN Reason: Headache/Fever or Pain Acetaminophen (Tylenol) 650 mg MD Q4H PRN PRN Reason: Headache/Fever or Pain Last Admin: 04/20/17 17:32 Dose: 650 mg Acetaminophen (Tylenol) 325 mg PO PRN PRN PRN Reason: Fever/Mild Pain 1ST LINE Albuterol/Ipratropium (Duoneb) 3 ml NEB [id number] LEORA Last Admin: 04/24/17 15:03 Dose: 3 ml Amlodipine Besylate (Norvasc) 5 mg PO DAILY [facility] Last Admin: 04/24/17 09:58 Dose: 5 mg Aspirin (Ecotrin) 81 mg PO QAM [facility] Last Admin: 04/24/17 09:58 Dose: 81 mg Bisacodyl (Dulcolax) 10 mg PO DAILYPRN PRN PRN Reason: Constipation Carvedilol (Coreg) 12.5 mg PO BID-WM [facility] Last Admin: 04/24/17 09:58 Dose: 12.5 mg Dextrose/Water (Dextrose 50%) 25 gm SLOW IVP PRN PRN PRN Reason: Hypoglycemia Enoxaparin Sodium (Lovenox) 40 mg SC 0900 [facility] Last Admin: 04/24/17 10:05 Dose: 40 mg Glucagon (Glucagon) 1 mg IM PRN PRN PRN Reason: Hypoglycemia Potassium Chloride 40 meq/ (Sodium Chloride) 270 mls @ 135 mls/hr IVPB ASDIR PRN PRN Reason: FOR SERUM K+ 2.5 - 3.5 Potassium Chloride 40 meq/ (Device) 100 mls @ 50 mls/hr IVPB ASDIR PRN PRN Reason: FOR SERUM K+ 2.5 - 3.5 Magnesium Sulfate 1 gm/ Sodium (Chloride) 102 mls @ 102 mls/hr IV PRN PRN PRN Reason: MAG LEVEL 1.4 - 2.0 Magnesium Sulfate 2 gm/ Device 100 mls @ 100 mls/hr IVPB ASDIR PRN PRN Reason: MAGNESIUM < 1.4 Potassium Phosphate 9 mmol/ (Sodium Chloride) 103 mls @ 25.75 mls/hr IVPB ASDIR PRN PRN Reason: Phosphate 1.0-1.8 Last Admin: 04/23/17 06:48 Dose: 103 mls Potassium Phosphate 12 mmol/ (Sodium Chloride) 254 mls @ 63.5 mls/hr IV ASDIR PRN PRN Reason: Serum phosphate 0.5-0.9 Potassium Phosphate 15 mmol/ (Sodium Chloride) 255 mls @ 63.75 mls/hr IV ASDIR PRN PRN Reason: Serum Phos < 0.5 Sodium Chloride (Normal Saline 0.9%) 1,000 mls @ 0 mls/hr IV .Q0M [facility] PRN Reason: KVO Diltiazem HCl 125 mg/ Sodium (Chloride) 125 mls @ 5 mls/hr IVPB INF LEORA PRN Reason: Protocol Last Admin: 04/21/17 23:22 Dose: 125 mls Dextrose/Water (D5w) 1,000 mls @ 0 mls/hr IV .Q0M PRN; As Directed PRN Reason: Hypoglycemia Fentanyl Citrate 2,000 mcg/ (Sodium Chloride) 100 mls @ 0 mls/hr IV INF LEORA; Per Protocol PRN Reason: Protocol Stop: 05/23/17 04:30 Fentanyl Citrate (Fentanyl Bolus) 250 mls @ 0 mls/hr IVPB PRN PRN; As Directed PRN Reason: Breakthrough pain Stop: 05/23/17 04:30 Micafungin Sodium 100 mg/ (Sodium Chloride) 100 mls @ 100 mls/hr IVPB Q24H [facility] Stop: 04/28/17 15:01 Last Admin: 04/23/17 17:33 Dose: 100 mls Insulin Human Lispro (Humalog) 0 units SC .MODERATE SLIDING SC PRN PRN Reason: Moderate Correctional Scale Last Admin: 04/24/17 12:17 Dose: 10 units Lorazepam (Ativan) 2 mg SLOW IVP Q2H PRN PRN Reason: Anxiety to achieve [place] 2-3 Stop: 05/23/17 04:30 Lovastatin (Mevacor) 10 mg PO QPM-WM [facility] Last Admin: 04/23/17 18:45 Dose: 10 mg Magnesium Oxide (Magnesium Oxide) 400 mg PO BIDPRN PRN PRN Reason: FOR SERUM MAG 1.4 - 2.0 Last Admin: 04/22/17 22:19 Dose: 400 mg Magnesium Oxide (Magnesium Oxide) 800 mg PO PRN PRN PRN Reason: FOR SERUM MAG < 1.4 Methylprednisolone Sodium Succinate (Solu-Medrol) 40 mg IVP DAILY [facility] Last Admin: 04/24/17 10:06 Dose: 40 mg Miscellaneous Medication (Phos-Nak) 1 pkt PO TIDPRN PRN PRN Reason: FOR PHOS LEVEL 1.0 - 1.8 Miscellaneous Medication (Phos-Nak) 2 pkt PO TIDPRN PRN PRN Reason: FOR PHOS LEVEL 0.5 - 1.0 Morphine Sulfate (Morphine) 2 mg SLOW IVP Q2H PRN PRN Reason: Breakthrough pain Stop: 05/23/17 04:30 Ccu Electrolyte (Replacement Protocol) 0 each FS PRN PRN PRN Reason: FOR ELECTROLYTE REPLACEMENT Discontinue Previous Narcotic Pain Medications And Benzodiazepines 1 each FS .ONE [facility] Stop: 05/20/17 11:16 Discontinue Previous Narcotic Pain Medications And Benzodiazepines 1 each FS .ONE [facility] Stop: 05/23/17 04:30 Potassium Chloride (K-Dur) 40 meq PO ASDIR PRN PRN Reason: FOR SERUM K+ 2.5 - 3.5 Potassium Chloride (Klor-Con) 40 meq PER TUBE ASDIR PRN PRN Reason: FOR SERUM K+ 2.5-3.5 Propofol (Diprivan) 1,000 mg IV INF PRN; Protocol PRN Reason: TO ACHIEVE [place] SCORE 2-3 Stop: 05/23/17 04:30 Last Admin: 04/24/17 02:58 Dose: 1,000 mg Sodium Chloride (Flush - Normal Saline) 10 ml IVF Q12HR [facility] Last Admin: 04/24/17 10:06 Dose: 10 ml Sodium Chloride (Flush - Normal Saline) 10 ml IVF PRN PRN PRN Reason: Saline Flush
[2017-04-24] MEDS: Micafungin 100 MG in Sodium Chloride 0.9% 100 ML IVPB SCH (15:38)
--- NOTE | 2017-04-24 16:00 | PRG ---
DATE OF SERVICE: 04/24/2017 SERVICE: Pulmonary Medicine. INTERVAL HISTORY: The patient is doing really well from a respiratory standpoint. He is breathing c omfortably on mechanical ventilation. Otherwise, there has been no interval change to his condition. We are going to put him on a spontaneous breathing trial. If he meets criteria, extubation will be considered. He is requiring really quite little support on the ventilator. He continues to have a slightly prolonged expiratory phase, but otherwise, his oxygen requirements have improved very nicely . PHYSICAL EXAMINATION: VITAL SIGNS: Afebrile with T-max 99.2, pulse 89, blood pressure 141/74, respirations 24, saturation 96% on 27% FiO2 and a PEEP of 7. GENERAL: Patient is awake, alert, no apparent distress. LUNGS: Decent air entry. There is a prolonged expiratory phase. Wheezing is present. Crackles are conntinually present. No rhonchi are appreciated. HEART: Normal rate, regular. ABDOMEN: Soft, nontender, nondistended. Bowel sounds are positive. MUSCULOSKELETAL: No cyanosis or clubbing. No pitting in the bilateral lower extremities. NEUROLOGIC: Grossly nonfocal. LABORATORY DATA: WBC 23.1, hemoglobin 10.1, platelets 253,000. Neutrophil count is increasing overa ll, but the band count is dropping to 3%. Sodium 148 and uptrending. BUN 67 and uptrending, creatin ine 2.25 and roughly stable. Phosphorus is normal at 2.4. Respiratory cultures presumptively growin g Keyla albicans. Blood culture x2 are negative. ASSESSMENT: 1. Acute hypoxic respiratory failure, stable. 2. Healthcare-associated pneumonia. 3. Influenza A. 4. Atrial fibrillation with rapid ventricular response, currently sinus. 5. Type 2 diabetes mellitus. PLAN: He failed CPAP trial today. As such, he will remain on mechanical ventilation for an addition al 24 hours and we will try once again tomorrow. As the day goes on, we will continue weaning PEEP a nd FiO2. Nebulized medications and steroids will be continued as well as other supportive measures. Pulmonary and Critical Care will continue to follow in this location. CRITICAL CARE TIME: 30 minutes.
[2017-04-24] MEDS: Lovastatin 20 MG TAB PO SCH (17:05)
[2017-04-25] MEDS: HumaLOG 300 UNITS/3 ML VIAL SC PRN ×3 (05:04→16:17)
[2017-04-25 05:36] LABS: Anion Gap 15 mmol/L (10-20); BUN (Urea Nitrogen) 71 mg/dL (8.4-25.7); Calc. Creatinine Clearance 56 mL/min (70-130); Calcium 8.2 mg/dL (7.8-10.44); Carbon Dioxide 28 mmol/L (23-31); Chloride 109 mmol/L (98-107); Estimated GFR-MDRD 75; Glucose 216 mg/dL (83-110); Potassium 3.7 mmol/L (3.5-5.1); Sodium 148 mmol/L (136-145)
[2017-04-25 06:22] LABS: Band 6 % (5-11); Hemoglobin 10.7 g/dL (14.0-18.0); Lymphocytes 4 % (21-51); MDiff Complete? YES; Mean Corpuscular HGB CONC 32.2 g/dL (32.0-36.0); Mean Corpuscular Hemoglobin 29.7 pg (27.0-31.0); Mean Corpuscular Volume 92.2 fl (80.0-94.0); Mean Platelet Volume 7.7 fL (7.4-10.4); Monocytes 4 % (0-10); Neutrophil 86 % (42-75); Platelet Count 223 thou/uL (130-400); RBC Distribution Width 12.6 % (11.5-14.5); Red Blood Cell (RBC) Count 3.62 mill/uL (4.70-6.10); White Blood Cell (WBC) Count 23.1 thou/uL (4.8-10.8)
[2017-04-25 06:37] LABS: Base Excess (BEa) 4.6 mEq/L (0 (+/-) 2.5); CO2 Tension 37.1 mmHg (35.0-45.0); Calcium, Ionized 1.1 mmol/L (1.12-1.30); Hematocrit-ABG 32.1 % (42.0-52.0); Hemoglobin (Hb) 10.7 g/dL (14.0-18.0); O2 Tension (PaO2) 50.2 mmHg (80.0-100.0)
[2017-04-25 06:38] LABS: Puncture Site RRA
[2017-04-25 06:39] LABS: ALV-art Gradient 183.445 (0-20)
[2017-04-25] MEDS: Enoxaparin Sodium 40 MG/0.4 ML SYRINGE SC SCH (07:38)
[2017-04-25] MEDS: Carvedilol 6.25 MG TAB PO SCH ×2 (07:39→16:20)
[2017-04-25] MEDS: Aspirin 81 mg Enteric Coated Tablet PO SCH (07:40)
[2017-04-25] MEDS: Amlodipine 5 MG TAB PO SCH (07:40)
--- NOTE | 2017-04-25 08:31 | PDOC.CTH ---
<Charlene Ford - Last Filed: 04/25/17 08:31> Cardiology Progress Note - Subjective The pt seen and examined. No overnight events. Still intubated with vent sedation. - Objective Vital Signs Temp Pulse Resp BP Pulse Ox 04/25/17 07:56 30 H 04/25/17 07:41 91 126/73 04/25/17 07:00 99.5 F 04/25/17 06:00 30 H 04/25/17 04:00 98.7 F 29 H 04/25/17 02:00 25 H 04/25/17 01:56 84 22 H 96 04/25/17 00:00 25 H 04/24/17 23:00 98.5 F 04/24/17 22:01 85 04/24/17 22:00 26 H 04/24/17 21:59 84 29 H 96 Admit Weight 169 lb Weight 164 lb 3.91 oz 04/24/17 04/25/17 04/26/17 06:59 06:59 06:59 Intake Total 1784 639.4 Output Total 1265 3275 125 Balance 519 -2635.6 -125 - Physical Examination Neck: no JVD present Lungs: other: (diminished at bases) Heart: RRR Abdomen: soft Extremities: other: (mild edema to Blat foot) - Telemetry Telemetry Rhythm: SR 90s - Labs Result Diagrams: 04/25/17 04:40 04/25/17 04:40 - Assessment/Plan 1. A Fluter - Remains in SR; Hx of Back to Afib with frequent PVCs during CODE events on 04/23/17; on Lovenox; cont. monitor on tele; possible Afib ablation when his condition is stable 2. Resp. failure 2ndary to Influenza B and PNA - Still with intubation with vent sedation; on IV antibiotics and Tamiflu; managed by tour director/PCP 3. HTN - stable with current medication; Lisinopril was d/wendy yesterday; cont. monitor 4. DM type 2 - on SS insulin; managed by PCP PIOTR reviewed Review of Systems - Review of Systems Constitutional: reports: see HPI EENTM: reports: see HPI Respiratory: reports: see HPI Cardiac (ROS): reports: see HPI ABD/GI: reports: see HPI : reports: see HPI Musculoskeletal: reports: see HPI <Jacklyn Urrutia - Last Filed: 04/25/17 14:18> Cardiology Progress Note - Objective Vital Signs Temp Pulse Resp BP Pulse Ox 04/25/17 14:00 29 H 04/25/17 12:00 35 H 04/25/17 11:00 100.8 F H 04/25/17 10:31 87 156/85 H 04/25/17 10:00 29 H 04/25/17 08:00 99.5 F 94 30 H 88 L 04/25/17 07:56 30 H 04/25/17 07:41 91 126/73 04/25/17 07:00 99.5 F 04/25/17 06:00 30 H 04/25/17 04:00 98.7 F 29 H Admit Weight 169 lb Weight 164 lb 3.91 oz 04/24/17 04/25/17 04/26/17 06:59 06:59 06:59 Intake Total 1784 639.4 Output Total 1265 3275 465 Balance 519 -2635.6 -465 - Labs Result Diagrams: 04/25/17 04:40 04/25/17 04:40 - Assessment/Plan Pt. seen and eval. by me. I agree with the A/P by the [employer]. His cardiac status is stable. RRR. No afib. recently.
--- NOTE | 2017-04-25 14:59 | PDOC.PN ---
- Subjective Encounter Start Date: 04/25/17 Encounter Start Time: 14:58 Subjective: remains intubated and sedated -: no overnight events - Objective MAR Reviewed: Yes Vital Signs & Weight: Vital Signs (12 hours) Temp Pulse Resp BP Pulse Ox 04/25/17 14:31 89 114/60 04/25/17 14:00 29 H 04/25/17 12:00 35 H 04/25/17 11:00 100.8 F H 04/25/17 10:31 87 156/85 H 04/25/17 10:00 29 H 04/25/17 08:00 99.5 F 94 30 H 88 L 04/25/17 07:56 30 H 04/25/17 07:41 91 126/73 04/25/17 07:00 99.5 F 04/25/17 06:00 30 H 04/25/17 04:00 98.7 F 29 H Weight Admit Weight 169 lb Weight 164 lb 3.91 oz Most Recent Monitor Data Heart Rate from ECG 88 NIBP 114/60 NIBP BP-Mean 77 Respiration from ECG 27 SpO2 93 I&O: 04/24/17 04/25/17 04/26/17 06:59 06:59 06:59 Intake Total 1784 639.4 Output Total 1265 3275 465 Balance 519 -2635.6 -465 Result Diagrams: 04/25/17 04:40 04/25/17 04:40 Additional Labs: Accuchecks 04/25/17 04/25/17 04/24/17 11:41 04:51 21:41 POC Glucose 225 H 205 H 220 H 04/24/17 17:01 POC Glucose 228 H Microbiology 04/20/17 10:50 Post Bronchial washings Respiratory Culture - Final Presumptive Keyla albicans 04/18/17 09:50 Venous blood - Right Hand Blood Culture - Final NO GROWTH IN 5 DAYS 04/18/17 09:45 Venous blood - Right Arm Blood Culture - Final NO GROWTH IN 5 DAYS 04/13/17 16:33 Venous blood - Right Arm Blood Culture - Final NO GROWTH IN 5 DAYS 04/13/17 15:44 Throat - Pending Group A Streptococcus Screen (ANNIA) - Final 04/13/17 15:44 Nasal swab Influenza Types A,B Direct EIA - Final 04/20/17 17:36 Venous blood - Left Hand Blood Culture - Preliminary NO GROWTH AT 48 HOURS 04/20/17 17:36 Venous blood - Left Hand Blood Culture - Preliminary NO GROWTH AT 48 HOURS 04/20/17 17:30 Venous blood - Right Hand Blood Culture - Preliminary NO GROWTH AT 48 HOURS 04/20/17 17:30 Venous blood - Right Hand Blood Culture - Preliminary NO GROWTH AT 48 HOURS Phys Exam - Physical Examination Constitutional: NAD intubated HEENT: PERRLA, moist MMs, sclera anicteric ett Neck: no nodes, no JVD, supple, full ROM Respiratory: no wheezing, no rales, no rhonchi Cardiovascular: RRR, no significant murmur Gastrointestinal: soft, non-tender, no distention, positive bowel sounds Musculoskeletal: no edema, pulses present sedated Deviation from normal: sedated Skin: no rash Dx/Plan (1) Acute respiratory failure Code(s): J96.00 - ACUTE RESPIRATORY FAILURE, UNSP W HYPOXIA OR HYPERCAPNIA Status: Acute Qualifiers: Respiratory failure complication: hypoxia and hypercapnia Qualified Code(s) : J96.01 - Acute respiratory failure with hypoxia; J96.02 - Acute respiratory failure with hypercapnia; J96.02 - Acute respiratory failure with hypercapnia; J96.02 - Acute respiratory failure with hypercapnia (2) Pneumonia Code(s): J18.9 - PNEUMONIA, UNSPECIFIED ORGANISM Status: Acute (3) Influenza A Code(s): J10.1 - FLU DUE TO OTH IDENT INFLUENZA VIRUS W OTH RESP MANIFEST Status: Acute (4) Atrial flutter Code(s): I48.92 - UNSPECIFIED ATRIAL FLUTTER Status: Acute Comment: NSR now (5) Diabetes mellitus type 2 in nonobese Code(s): E11.9 - TYPE 2 DIABETES MELLITUS WITHOUT COMPLICATIONS Status: Chronic (6) Hypertension Code(s): I10 - ESSENTIAL (PRIMARY) HYPERTENSION Status: Chronic (7) BPH (benign prostatic hyperplasia) Code(s): N40.0 - BENIGN PROSTATIC HYPERPLASIA WITHOUT LOWER URINRY TRACT SYMP Status: Chronic - Plan plan discussed w/ family, continue antibiotics, respiratory therapy, incentive spirometry, DVT proph w/SCDs cont ABx,anti fungal.vent support.PCCM following.wean when tolerated -: NSR on BB.BP controlled -: am labs * . Review of Systems - Review of Systems Other: unobtainable d/t intubated /sedated state - Medications/Allergies Allergies/Adverse Reactions: Allergies Allergy/AdvReac Type Severity Reaction Status Date / Time No Known Allergies Allergy Verified 12/04/16 00:34 Medications: Current Medications Acetaminophen (Tylenol) 650 mg PO Q4H PRN PRN Reason: Headache/Fever or Pain Acetaminophen (Tylenol) 650 mg MD Q4H PRN PRN Reason: Headache/Fever or Pain Last Admin: 04/20/17 17:32 Dose: 650 mg Acetaminophen (Tylenol) 325 mg PO PRN PRN PRN Reason: Fever/Mild Pain 1ST LINE Albuterol/Ipratropium (Duoneb) 3 ml NEB [id number] [facility] Last Admin: 04/25/17 14:31 Dose: 3 ml Amlodipine Besylate (Norvasc) 5 mg PO DAILY [facility] Last Admin: 04/25/17 07:40 Dose: 5 mg Aspirin (Ecotrin) 81 mg PO QAM [facility] Last Admin: 04/25/17 07:40 Dose: 81 mg Bisacodyl (Dulcolax) 10 mg PO DAILYPRN PRN PRN Reason: Constipation Carvedilol (Coreg) 12.5 mg PO BID-[facility] Last Admin: 04/25/17 07:39 Dose: 12.5 mg Dextrose/Water (Dextrose 50%) 25 gm SLOW IVP PRN PRN PRN Reason: Hypoglycemia Enoxaparin Sodium (Lovenox) 40 mg SC 0900 [facility] Last Admin: 04/25/17 07:38 Dose: 40 mg Glucagon (Glucagon) 1 mg IM PRN PRN PRN Reason: Hypoglycemia Potassium Chloride 40 meq/ (Sodium Chloride) 270 mls @ 135 mls/hr IVPB ASDIR PRN PRN Reason: FOR SERUM K+ 2.5 - 3.5 Potassium Chloride 40 meq/ (Device) 100 mls @ 50 mls/hr IVPB ASDIR PRN PRN Reason: FOR SERUM K+ 2.5 - 3.5 Magnesium Sulfate 1 gm/ Sodium (Chloride) 102 mls @ 102 mls/hr IV PRN PRN PRN Reason: MAG LEVEL 1.4 - 2.0 Magnesium Sulfate 2 gm/ Device 100 mls @ 100 mls/hr IVPB ASDIR PRN PRN Reason: MAGNESIUM < 1.4 Potassium Phosphate 9 mmol/ (Sodium Chloride) 103 mls @ 25.75 mls/hr IVPB ASDIR PRN PRN Reason: Phosphate 1.0-1.8 Last Admin: 04/23/17 06:48 Dose: 103 mls Potassium Phosphate 12 mmol/ (Sodium Chloride) 254 mls @ 63.5 mls/hr IV ASDIR PRN PRN Reason: Serum phosphate 0.5-0.9 Potassium Phosphate 15 mmol/ (Sodium Chloride) 255 mls @ 63.75 mls/hr IV ASDIR PRN PRN Reason: Serum Phos < 0.5 Sodium Chloride (Normal Saline 0.9%) 1,000 mls @ 0 mls/hr IV .Q0M LEORA PRN Reason: KVO Diltiazem HCl 125 mg/ Sodium (Chloride) 125 mls @ 5 mls/hr IVPB INF LEORA PRN Reason: Protocol Last Admin: 04/21/17 23:22 Dose: 125 mls Dextrose/Water (D5w) 1,000 mls @ 0 mls/hr IV .Q0M PRN; As Directed PRN Reason: Hypoglycemia Fentanyl Citrate 2,000 mcg/ (Sodium Chloride) 100 mls @ 0 mls/hr IV INF LEORA; Per Protocol PRN Reason: Protocol Stop: 05/23/17 04:30 Fentanyl Citrate (Fentanyl Bolus) 250 mls @ 0 mls/hr IVPB PRN PRN; As Directed PRN Reason: Breakthrough pain Stop: 05/23/17 04:30 Micafungin Sodium 100 mg/ (Sodium Chloride) 100 mls @ 100 mls/hr IVPB Q24H [facility] Stop: 04/28/17 15:01 Last Admin: 04/24/17 15:38 Dose: 100 mls Insulin Human Lispro (Humalog) 0 units SC .MODERATE SLIDING SC PRN PRN Reason: Moderate Correctional Scale Last Admin: 04/25/17 11:41 Dose: 4 units Lorazepam (Ativan) 2 mg SLOW IVP Q2H PRN PRN Reason: Anxiety to achieve [place] 2-3 Stop: 05/23/17 04:30 Lovastatin (Mevacor) 10 mg PO QPM-[facility] Last Admin: 04/24/17 17:05 Dose: 10 mg Magnesium Oxide (Magnesium Oxide) 400 mg PO BIDPRN PRN PRN Reason: FOR SERUM MAG 1.4 - 2.0 Last Admin: 04/22/17 22:19 Dose: 400 mg Magnesium Oxide (Magnesium Oxide) 800 mg PO PRN PRN PRN Reason: FOR SERUM MAG < 1.4 Methylprednisolone Sodium Succinate (Solu-Medrol) 40 mg IVP DAILY [facility] Last Admin: 04/25/17 07:40 Dose: 40 mg Miscellaneous Medication (Phos-Nak) 1 pkt PO TIDPRN PRN PRN Reason: FOR PHOS LEVEL 1.0 - 1.8 Miscellaneous Medication (Phos-Nak) 2 pkt PO TIDPRN PRN PRN Reason: FOR PHOS LEVEL 0.5 - 1.0 Morphine Sulfate (Morphine) 2 mg SLOW IVP Q2H PRN PRN Reason: Breakthrough pain Stop: 05/23/17 04:30 Potassium Chloride (K-Dur) 40 meq PO ASDIR PRN PRN Reason: FOR SERUM K+ 2.5 - 3.5 Potassium Chloride (Klor-Con) 40 meq PER TUBE ASDIR PRN PRN Reason: FOR SERUM K+ 2.5-3.5 Propofol (Diprivan) 1,000 mg IV INF PRN; Protocol PRN Reason: TO ACHIEVE MCFARLANE SCORE 2-3 Stop: 05/23/17 04:30 Last Admin: 04/24/17 17:53 Dose: 1,000 mg Sodium Chloride (Flush - Normal Saline) 10 ml IVF Q12HR [facility] Last Admin: 04/25/17 07:40 Dose: 10 ml Sodium Chloride (Flush - Normal Saline) 10 ml IVF PRN PRN PRN Reason: Saline Flush
[2017-04-25] MEDS: Micafungin 100 MG in Sodium Chloride 0.9% 100 ML IVPB SCH (16:15)
[2017-04-25] MEDS: Lovastatin 20 MG TAB PO SCH (16:20)
--- NOTE | 2017-04-25 17:37 | PRG ---
DATE OF SERVICE: 04/25/2017 SERVICE: Pulmonary Medicine. INTERVAL HISTORY: The patient is doing okay from a respiratory standpoint. We once again put him on a spontaneous breathing trial. He did very poorly with this. He was heavily sedated this morning. He is having a hard time waking up for many of the sedation. Otherwise, there has been no interval change to his condition. He remains extraordinarily weak. PHYSICAL EXAMINATION: VITAL SIGNS: Afebrile with a T-max of 100.8. Pulse 93, blood pressure 151/77, respirations 28, satu ration 96% on 45% FiO2 and a PEEP of 10. GENERAL: Patient is awake and alert, in no apparent distress. LUNGS: Decent air entry. Rhonchi and crackles are both present. There is a prolonged expiratory ph ase with wheezing. HEART: Normal rate and regular. ABDOMEN: Soft, nontender and nondistended. Bowel sounds are positive. MUSCULOSKELETAL: No cyanosis or clubbing. There is no pitting in the bilateral lower extremities. NEUROLOGIC: Grossly nonfocal. LABORATORY DATA: WBC 23.1 and stable, hemoglobin 10.7, platelets 223,000. Neutrophil count is 86% w ith 6% bands. PH 7.50, pCO2 of 37 and pO2 of 50.2. Sodium is 148 and stable. Basic metabolic profi le is otherwise unremarkable. BUN is stable at 71. Creatinine is gently downtrending to 1.14. Bloo d cultures x2 are negative. Respiratory cultures presumptively growing konrad. ASSESSMENT: 1. Acute hypoxic respiratory failure. 2. Healthcare-associated pneumonia. 3. Influenza. 4. Atrial fibrillation with rapid ventricular response, currently sinus rhythm. 5. Type 2 diabetes mellitus. 6. Metabolic encephalopathy. PLAN: If his creatinine continues to improve tomorrow. We will continue our efforts to keep him dry in the morning. He did fail the spontaneous breathing trial once again. As such, [facility] ventilation. We will continue supportive care and try to minimize our IV fluids to the patie nt. Supportive measures and antibiotics will otherwise be continued. CRITICAL CARE TIME: 30 minutes.
[2017-04-25] MEDS ORDERED: Lorazepam 2 MG/ML VIAL SLOW IVP PRN (19:14)
[2017-04-25] MEDS ORDERED: DISCONTINUE PREVIOUS NARCOTIC PAIN MEDICATIONS AND BENZODIAZEPINES FS SCH (19:14)
[2017-04-25] MEDS ORDERED: Fentanyl BOLUS 250 ML IVPB PRN (19:14)
[2017-04-25] MEDS ORDERED: Morphine 2 MG/ML SYRINGE SLOW IVP PRN (19:14)
[2017-04-26] MEDS: HumaLOG 300 UNITS/3 ML VIAL SC PRN ×4 (04:10→22:16)
[2017-04-26 04:55] LABS: Anion Gap 14 mmol/L (10-20); BUN (Urea Nitrogen) 76 mg/dL (8.4-25.7); Calc. Creatinine Clearance 52 mL/min (70-130); Carbon Dioxide 29 mmol/L (23-31); Chloride 111 mmol/L (98-107); Estimated GFR-MDRD 72; Glucose 284 mg/dL (83-110); Potassium 3.3 mmol/L (3.5-5.1); Sodium 151 mmol/L (136-145)
[2017-04-26] MEDS: Acetaminophen 325 MG TAB PO PRN (08:10)
[2017-04-26] MEDS: Carvedilol 6.25 MG TAB PO SCH (08:10)
[2017-04-26] MEDS: Enoxaparin Sodium 40 MG/0.4 ML SYRINGE SC SCH (08:11)
[2017-04-26] MEDS: Amlodipine 5 MG TAB PO SCH (08:13)
--- NOTE | 2017-04-26 09:16 | RAD ---
FRONTAL VIEW CHEST SERIES: COMPARISON: 04/23/17. INDICATION: Intubated patient. FINDINGS: There is multifocal consolidation throughout each lung. Supportive lines and tubes are present, alth ough largely obscured by extrinsic artifact. The chest is otherwise similar. IMPRESSION: Persistent, diffuse pulmonary parenchymal opacification. POS: [facility]
[2017-04-26] MEDS ORDERED: Propofol 1,000 MG/100 ML VIAL IV ONE (09:21)
[2017-04-26] MEDS: Aspirin 81 mg Enteric Coated Tablet PO SCH (09:24)
[2017-04-26] MEDS ORDERED: Lactated Ringer's 1,000 ML IV SCH (10:45)
[2017-04-26] MEDS ORDERED: Vancomycin HCl 1.5 GM in Sodium Chloride 0.9% 250 ML 300 ML IVPB SCH (10:45)
--- NOTE | 2017-04-26 11:51 | PRG ---
DATE OF SERVICE: 04/26/2017 SERVICE: Pulmonary Medicine. INTERVAL HISTORY: The patient is doing poorly today. Oxygen requirements are going up. Work of [employer] is going on. He is having fevers. His blood pressures are actually decreasing. As such, I d o believe that he is developing a new infection. He cannot provide me any additional elements of the history because of little bit of encephalopathy. He does wake up and attends. That being said, wit hout stimulation he is back to sleep in less than 3 seconds. He is requiring minimal sedation at [facility] s point. PHYSICAL EXAMINATION: VITAL SIGNS: Temperature 101.3, pulse 85, blood pressure 114/62, respirations 41, saturation 93% on 60% FIO2 and PEEP of 7. HEENT: Normocephalic, atraumatic. Sclerae are white, conjunctivae pink. Oral and nasal mucosa is m oist without lesions. LUNGS: Decent air entry. There is not much in the way of prolonged expiratory phase or wheezing. HEART: Normal rate, regular. ABDOMEN: Soft. Nontender. Nondistended. Bowel sounds are positive. MUSCULOSKELETAL: No cyanosis or clubbing. Today there is no pitting in the bilateral lower extremit ies. NEUROLOGIC: Grossly nonfocal. LABORATORY DATA: Sodium 151, potassium 3.3, chloride 111. Creatinine 1.17. Basic metabolic profile is otherwise unremarkable. Blood culture is negative. Respiratory cultures are presumptively growi ng Keyla albicans. IMAGING: Chest x-ray demonstrates persistent diffuse pulmonary parenchymal opacifications. Seemed t o be more densely consolidated in the right lower lobe region. No significant volume overload is matt dent today. ASSESSMENT: 1. Acute hypoxic respiratory failure. 2. Healthcare-associated pneumonia. 3. Influenza. 4. Atrial fibrillation with rapid ventricular response, currently sinus rhythm. 5. Type 2 diabetes mellitus. 6. Metabolic encephalopathy. PLAN: I will hold Lasix. We are going to him a liter of IV fluids. Will initiate some half normal saline at maintenance doses. Scott culture is going to obtained and the patient will be brought in masha k out on antibiotic coverage. Tamiflu will be continued. Pulmonary or Critical Care will continue t o follow while the patient remains in this location. We will go ahead and initiate some tube feeds a s the patient is likely to be intubated for an extended period of time. CRITICAL CARE TIME: 30 minutes.
[2017-04-26] MEDS: Piperacillin/Tazobactam 3.375 GM in Sodium Chloride 0.9% 100 ML IVPB SCH ×3 (12:19→22:59)
[2017-04-26] MEDS: Vancomycin HCl 750 MG in Sodium Chloride 0.9% 250 ML 250 ML IVPB SCH (12:19)
--- NOTE | 2017-04-26 15:11 | PDOC.PN ---
- Subjective Encounter Start Date: 04/26/17 Encounter Start Time: 15:10 Subjective: doing poorly today.increased vent requirements -: fever - Objective Vital Signs & Weight: Vital Signs (12 hours) Temp Pulse Resp BP Pulse Ox 04/26/17 14:38 92 89/41 L 04/26/17 14:00 32 H 04/26/17 12:55 80 101/41 L 04/26/17 11:51 99.3 F 04/26/17 11:50 35 H 04/26/17 11:25 82 81/39 L 04/26/17 10:17 85 80/43 L 04/26/17 10:00 38 H 04/26/17 09:01 101 H 114/62 04/26/17 08:13 101 H 107/45 L 04/26/17 08:10 107/45 L 04/26/17 08:00 101.3 F H 101 H 41 H 90 L 04/26/17 06:30 101 H 93/58 L 04/26/17 04:00 100.6 F H 37 H Weight Admit Weight 169 lb Weight 159 lb 9.835 oz Most Recent Monitor Data Heart Rate from ECG 89 NIBP 96/50 NIBP BP-Mean 62 Respiration from ECG 30 SpO2 100 I&O: 04/25/17 04/26/17 04/27/17 06:59 06:59 06:59 Intake Total 639.4 372.5 1300 Output Total 3275 1325 465 Balance -2635.6 -952.5 835 Result Diagrams: 04/25/17 04:40 04/26/17 03:59 Additional Labs: Accuchecks 04/26/17 04/26/17 04/25/17 09:51 04:08 21:22 POC Glucose 282 H 257 H 146 H 04/25/17 16:15 POC Glucose 166 H Microbiology 04/20/17 17:36 Venous blood - Left Hand Blood Culture - Final NO GROWTH IN 5 DAYS 04/20/17 17:30 Venous blood - Right Hand Blood Culture - Final NO GROWTH IN 5 DAYS 04/20/17 10:50 Post Bronchial washings Respiratory Culture - Final Presumptive Keyla albicans 04/26/17 10:05 Sputum Respiratory Culture - Preliminary Laboratory Tests 04/20/17 04/21/17 04/22/17 04:00 03:49 03:28 Sodium 136 140 140 04/23/17 04/24/17 04/25/17 03:27 03:20 04:40 Sodium 145 148 H 148 H 04/26/17 03:59 Sodium 151 H Radiology Reviewed by me: Yes (CXR-bibasilar infiltrates) Phys Exam - Physical Examination Constitutional: NAD intubated.opens eyes w verbal stimulii HEENT: PERRLA, moist MMs, sclera anicteric, oral pharynx no lesions Neck: no JVD coarse at bases Cardiovascular: RRR, no significant murmur Gastrointestinal: soft, non-tender, no distention, positive bowel sounds Musculoskeletal: no edema, pulses present Neurological: moves all 4 limbs Dx/Plan (1) Acute respiratory failure Code(s): J96.00 - ACUTE RESPIRATORY FAILURE, UNSP W HYPOXIA OR HYPERCAPNIA Status: Acute Qualifiers: Respiratory failure complication: hypoxia and hypercapnia Qualified Code(s) : J96.01 - Acute respiratory failure with hypoxia; J96.02 - Acute respiratory failure with hypercapnia; J96.02 - Acute respiratory failure with hypercapnia; J96.02 - Acute respiratory failure with hypercapnia (2) Pneumonia Code(s): J18.9 - PNEUMONIA, UNSPECIFIED ORGANISM Status: Acute (3) Hypernatremia Code(s): E87.0 - HYPEROSMOLALITY AND HYPERNATREMIA Status: Acute (4) Influenza A Code(s): J10.1 - FLU DUE TO OTH IDENT INFLUENZA VIRUS W OTH RESP MANIFEST Status: Acute (5) Atrial flutter Code(s): I48.92 - UNSPECIFIED ATRIAL FLUTTER Status: Acute Comment: NSR now (6) Diabetes mellitus type 2 in nonobese Code(s): E11.9 - TYPE 2 DIABETES MELLITUS WITHOUT COMPLICATIONS Status: Chronic (7) Hypertension Code(s): I10 - ESSENTIAL (PRIMARY) HYPERTENSION Status: Chronic (8) BPH (benign prostatic hyperplasia) Code(s): N40.0 - BENIGN PROSTATIC HYPERPLASIA WITHOUT LOWER URINRY TRACT SYMP Status: Chronic (9) Fever Code(s): R50.9 - FEVER, UNSPECIFIED Status: Acute - Plan beasley catheter, continue antibiotics, DVT proph w/SCDs re initaiated on IV ABx w recrudescence of fever.? source. -: increase free water flushes as sodium creeping upwards -: remains vent dependent.[facility] following. -: cont steroids,nebs ,Tamiflu etc. -: poor prognosis.AM labs * . Review of Systems - Review of Systems Other: unobtainable due to encephalopathy,sedation,intubation - Medications/Allergies Allergies/Adverse Reactions: Allergies Allergy/AdvReac Type Severity Reaction Status Date / Time No Known Allergies Allergy Verified 12/04/16 00:34 Medications: Current Medications Acetaminophen (Tylenol) 650 mg PO Q4H PRN PRN Reason: Headache/Fever or Pain Last Admin: 04/26/17 08:10 Dose: 650 mg Acetaminophen (Tylenol) 650 mg MO Q4H PRN PRN Reason: Headache/Fever or Pain Last Admin: 04/20/17 17:32 Dose: 650 mg Acetaminophen (Tylenol) 325 mg PO PRN PRN PRN Reason: Fever/Mild Pain 1ST LINE Albuterol/Ipratropium (Duoneb) 3 ml NEB [id number] [facility] Last Admin: 04/26/17 13:55 Dose: 3 ml Aspirin (Ecotrin) 81 mg PO QAM [facility] Last Admin: 04/26/17 09:24 Dose: 81 mg Bisacodyl (Dulcolax) 10 mg PO DAILYPRN PRN PRN Reason: Constipation Dextrose/Water (Dextrose 50%) 25 gm SLOW IVP PRN PRN PRN Reason: Hypoglycemia Enoxaparin Sodium (Lovenox) 40 mg SC 0900 [facility] Last Admin: 04/26/17 08:11 Dose: 40 mg Glucagon (Glucagon) 1 mg IM PRN PRN PRN Reason: Hypoglycemia Potassium Chloride 40 meq/ (Sodium Chloride) 270 mls @ 135 mls/hr IVPB ASDIR PRN PRN Reason: FOR SERUM K+ 2.5 - 3.5 Potassium Chloride 40 meq/ (Device) 100 mls @ 50 mls/hr IVPB ASDIR PRN PRN Reason: FOR SERUM K+ 2.5 - 3.5 Magnesium Sulfate 1 gm/ Sodium (Chloride) 102 mls @ 102 mls/hr IV PRN PRN PRN Reason: MAG LEVEL 1.4 - 2.0 Magnesium Sulfate 2 gm/ Device 100 mls @ 100 mls/hr IVPB ASDIR PRN PRN Reason: MAGNESIUM < 1.4 Potassium Phosphate 9 mmol/ (Sodium Chloride) 103 mls @ 25.75 mls/hr IVPB ASDIR PRN PRN Reason: Phosphate 1.0-1.8 Last Admin: 04/23/17 06:48 Dose: 103 mls Potassium Phosphate 12 mmol/ (Sodium Chloride) 254 mls @ 63.5 mls/hr IV ASDIR PRN PRN Reason: Serum phosphate 0.5-0.9 Potassium Phosphate 15 mmol/ (Sodium Chloride) 255 mls @ 63.75 mls/hr IV ASDIR PRN PRN Reason: Serum Phos < 0.5 Sodium Chloride (Normal Saline 0.9%) 1,000 mls @ 0 mls/hr IV .Q0M LEORA PRN Reason: KVO Dextrose/Water (D5w) 1,000 mls @ 0 mls/hr IV .Q0M PRN; As Directed PRN Reason: Hypoglycemia Micafungin Sodium 100 mg/ (Sodium Chloride) 100 mls @ 100 mls/hr IVPB Q24H [facility] Stop: 04/28/17 15:01 Last Admin: 04/25/17 16:15 Dose: 100 mls Fentanyl Citrate (Fentanyl Bolus) 250 mls @ 0 mls/hr IVPB PRN PRN; As Directed PRN Reason: Breakthrough pain Stop: 05/25/17 19:14 Fentanyl Citrate 2,000 mcg/ (Sodium Chloride) 100 mls @ 0 mls/hr IV INF LEORA PRN Reason: As Directed Piperacillin Sod/Tazobactam (Sod 3.375 gm/ Sodium Chloride) 100 mls @ 200 mls/ hr IVPB Q6HR [facility] Stop: 05/03/17 12:01 Last Admin: 04/26/17 12:19 Dose: 100 mls Vancomycin HCl 750 mg/ Sodium (Chloride) 250 mls @ 250 mls/hr IVPB 0200,1400 [facility] Stop: 05/03/17 02:59 Last Admin: 04/26/17 12:19 Dose: 250 mls Insulin Human Lispro (Humalog) 0 units SC .MODERATE SLIDING SC PRN PRN Reason: Moderate Correctional Scale Last Admin: 04/26/17 11:05 Dose: 6 units Magnesium Oxide (Magnesium Oxide) 400 mg PO BIDPRN PRN PRN Reason: FOR SERUM MAG 1.4 - 2.0 Last Admin: 04/22/17 22:19 Dose: 400 mg Magnesium Oxide (Magnesium Oxide) 800 mg PO PRN PRN PRN Reason: FOR SERUM MAG < 1.4 Methylprednisolone Sodium Succinate (Solu-Medrol) 40 mg IVP DAILY [facility] Last Admin: 04/26/17 08:10 Dose: 40 mg Miscellaneous Medication (Phos-Nak) 1 pkt PO TIDPRN PRN PRN Reason: FOR PHOS LEVEL 1.0 - 1.8 Miscellaneous Medication (Phos-Nak) 2 pkt PO TIDPRN PRN PRN Reason: FOR PHOS LEVEL 0.5 - 1.0 Miscellaneous Medication (Pharmacy To Dose) 1 each IVPB .VANCOMYCIN [facility] Discontinue Previous Narcotic Pain Medications And Benzodiazepines 1 each FS .ONE [facility] Stop: 05/25/17 19:14 Potassium Chloride (K-Dur) 40 meq PO ASDIR PRN PRN Reason: FOR SERUM K+ 2.5 - 3.5 Potassium Chloride (Klor-Con) 40 meq PER TUBE ASDIR PRN PRN Reason: FOR SERUM K+ 2.5-3.5 Propofol (Diprivan) 1,000 mg IV INF PRN; Protocol PRN Reason: TO ACHIEVE [place] SCORE 2-3 Stop: 05/25/17 19:14 Sodium Chloride (Flush - Normal Saline) 10 ml IVF Q12HR [facility] Last Admin: 04/26/17 08:11 Dose: 10 ml Sodium Chloride (Flush - Normal Saline) 10 ml IVF PRN PRN PRN Reason: Saline Flush
[2017-04-26] MEDS: Micafungin 100 MG in Sodium Chloride 0.9% 100 ML IVPB SCH (15:17)
[2017-04-27] MEDS: Acetaminophen 325 MG TAB PO PRN ×4 (00:56→23:03)
[2017-04-27] MEDS: Vancomycin HCl 750 MG in Sodium Chloride 0.9% 250 ML 250 ML IVPB SCH ×2 (01:51→14:46)
[2017-04-27] MEDS: HumaLOG 300 UNITS/3 ML VIAL SC PRN ×4 (03:20→22:07)
[2017-04-27 05:00] LABS: Anion Gap 14 mmol/L (10-20); BUN (Urea Nitrogen) 85 mg/dL (8.4-25.7); Calc. Creatinine Clearance 39 mL/min (70-130); Calcium 7.7 mg/dL (7.8-10.44); Carbon Dioxide 29 mmol/L (23-31); Chloride 113 mmol/L (98-107); Estimated GFR-MDRD 51; Glucose 271 mg/dL (83-110); Magnesium 2.1 mg/dL (1.6-2.6); Phosphorus 3.1 mg/dL (2.3-4.7); Potassium 3.3 mmol/L (3.5-5.1); Sodium 153 mmol/L (136-145)
[2017-04-27] MEDS: Piperacillin/Tazobactam 3.375 GM in Sodium Chloride 0.9% 100 ML IVPB SCH ×4 (05:07→23:03)
[2017-04-27 05:11] LABS: Band 2 % (5-11); Hemoglobin 10.1 g/dL (14.0-18.0); Lymphocytes 7 % (21-51); MDiff Complete? YES; Mean Corpuscular HGB CONC 32.5 g/dL (32.0-36.0); Mean Corpuscular Hemoglobin 30.2 pg (27.0-31.0); Mean Corpuscular Volume 92.7 fl (80.0-94.0); Mean Platelet Volume 8.4 fL (7.4-10.4); Monocytes 1 % (0-10); Neutrophil 90 % (42-75); Platelet Count 169 thou/uL (130-400); RBC Distribution Width 12.7 % (11.5-14.5); Red Blood Cell (RBC) Count 3.34 mill/uL (4.70-6.10); White Blood Cell (WBC) Count 18.5 thou/uL (4.8-10.8)
[2017-04-27] MEDS: Propofol 1,000 MG/100 ML VIAL IV PRN (06:02)
[2017-04-27] MEDS: Aspirin 81 mg Enteric Coated Tablet PO SCH (08:15)
[2017-04-27] MEDS: Enoxaparin Sodium 40 MG/0.4 ML SYRINGE SC SCH (08:16)
--- NOTE | 2017-04-27 12:17 | PRG ---
DATE OF SERVICE: 04/27/2017 SERVICE: Pulmonary Medicine. INTERVAL HISTORY: The patient is doing fine from a respiratory standpoint. He is breathing much bet ter today. He is still tachypneic. That being said, the work of breathing is improved. His oxygen requirements are actually starting to decrease to touch. Otherwise, there has been no interval fuentes e to his condition. PHYSICAL EXAMINATION: VITAL SIGNS: Afebrile with a T-max of 100.1, pulse 102, blood pressure 114/46, respirations 38, satu ration 93% on 60% FIO2 and a PEEP of 10. GENERAL: Patient is intubated and sedated. HEENT: Normocephalic, atraumatic. Sclerae are white, conjunctivae pink. Oral and nasal mucosa is m oist without lesions. LUNGS: Decent air entry. Crackles are present. There is no prolonged expiratory phase or wheezing. HEART: Normal rate, regular. ABDOMEN: Soft. Nontender, nondistended. Bowel sounds are positive. MUSCULOSKELETAL: No cyanosis or clubbing. There is no pitting in the bilateral lower extremities, b ut he has 1-2+ pitting at the sacral region. GENITOURINARY: Pulido catheter in place. NEUROLOGIC: Grossly nonfocal. LABORATORY DATA: WBC 18.5 and downtrending nicely, hemoglobin 10.1, platelets 169,000. Neutrophils are 90% with a band count that is dropping to 2%. Creatinine 1.59 and uptrending, BUN 85. Sodium 15 3, which is also trending upward. Potassium 3.3 and stable. Magnesium and phosphorus were all withi n normal limits. Respiratory culture, blood culture x2 and urine culture from yesterday are all nega tive to date. ASSESSMENT: 1. Acute hypoxic respiratory failure. 2. Healthcare-associated pneumonia secondary to influenza A. 3. Severe sepsis with recurrence and symptoms here yesterday. 4. Atrial fibrillation with rapid ventricular response, currently sinus with frequent premature vent ricular contractions. 5. Type 2 diabetes mellitus. 6. Metabolic encephalopathy. PLAN: We will continue to hold our Lasix until he clears his inflammatory profile. He remains a lit tle volume overloaded, but we will cross that bridge in 24-48 hours. Potassium will once again be re placed. We will continue our aggressive free water replacement in order to get his sodium down a lisa ch over the next 24-48 hours. Empiric antibiotics are going to be continued. We will tailor to anyt haritha that grows over the next 24-48 hours. The patient remains in critical condition and there is a possibility that he will not make it through this hospital stay. That being said, I am still hopeful that his lungs can recover some function. CRITICAL CARE TIME: 30 minutes.
--- NOTE | 2017-04-27 14:33 | PDOC.PN ---
- Subjective Encounter Start Date: 04/27/17 Encounter Start Time: 14:31 Subjective: remains intubated and vent dependent - Objective MAR Reviewed: Yes Vital Signs & Weight: Vital Signs (12 hours) Temp Pulse Resp BP Pulse Ox 04/27/17 14:00 35 H 04/27/17 13:37 91 96/39 L 04/27/17 13:36 92 36 H 94 L 04/27/17 12:55 100.1 F H 04/27/17 12:00 39 H 04/27/17 11:00 101 F H 04/27/17 10:00 37 H 04/27/17 09:38 102 H 114/46 L 04/27/17 09:37 99 38 H 93 L 04/27/17 08:00 99.5 F 99 36 H 04/27/17 07:00 99.5 F 04/27/17 06:10 95 121/55 L 04/27/17 06:09 96 39 H 97 04/27/17 06:00 36 H 04/27/17 04:00 34 H 04/27/17 03:00 99.2 F Weight Admit Weight 169 lb Weight 165 lb 2.02 oz Most Recent Monitor Data Heart Rate from ECG 92 NIBP 115/50 NIBP BP-Mean 59 Respiration from ECG 36 SpO2 95 I&O: 04/26/17 04/27/17 04/28/17 06:59 06:59 06:59 Intake Total 372.5 4109.5 60 Output Total 1325 1560 380 Balance -952.5 2549.5 -320 Result Diagrams: 04/27/17 04:11 04/27/17 04:11 Additional Labs: Accuchecks 04/27/17 04/27/17 04/26/17 11:22 03:19 22:15 POC Glucose 312 H 270 H 314 H 04/26/17 15:23 POC Glucose 290 H Microbiology 04/20/17 17:36 Venous blood - Left Hand Blood Culture - Final NO GROWTH IN 5 DAYS 04/20/17 17:30 Venous blood - Right Hand Blood Culture - Final NO GROWTH IN 5 DAYS 04/20/17 10:50 Post Bronchial washings Respiratory Culture - Final Presumptive Keyla albicans 04/26/17 10:05 Sputum Respiratory Culture - Preliminary 04/26/17 09:50 Venous blood - Left Hand Blood Culture - Preliminary Specimen has been received and culture in progress. No Growth to date. 04/26/17 09:39 Venous blood - Right Hand Blood Culture - Preliminary Specimen has been received and culture in progress. No Growth to date. 04/26/17 09:30 Urine beasley catheter Urine Culture - Preliminary NO GROWTH AT 24 HOURS Laboratory Tests 04/20/17 04/21/17 04/22/17 04:00 03:49 03:28 Sodium 136 140 140 04/23/17 04/24/17 04/25/17 03:27 03:20 04:40 Sodium 145 148 H 148 H 04/26/17 04/27/17 03:59 04:11 Sodium 151 H 153 H Phys Exam - Physical Examination Constitutional: NAD opens eyes to verbal stimulii HEENT: PERRLA, moist MMs, sclera anicteric, oral pharynx no lesions Neck: no nodes, no JVD, supple, full ROM Respiratory: no wheezing, no rales, no rhonchi, clear to auscultation bilateral Cardiovascular: RRR, no significant murmur Gastrointestinal: soft, non-tender, no distention, positive bowel sounds Musculoskeletal: pulses present, edema present Neurological: non-focal, normal sensation, moves all 4 limbs Psychiatric: normal affect, A&O x 3 Skin: no rash Dx/Plan (1) Acute respiratory failure Code(s): J96.00 - ACUTE RESPIRATORY FAILURE, UNSP W HYPOXIA OR HYPERCAPNIA Status: Acute Qualifiers: Respiratory failure complication: hypoxia and hypercapnia Qualified Code(s) : J96.01 - Acute respiratory failure with hypoxia; J96.02 - Acute respiratory failure with hypercapnia; J96.02 - Acute respiratory failure with hypercapnia; J96.02 - Acute respiratory failure with hypercapnia (2) Pneumonia Code(s): J18.9 - PNEUMONIA, UNSPECIFIED ORGANISM Status: Acute (3) Hypernatremia Code(s): E87.0 - HYPEROSMOLALITY AND HYPERNATREMIA Status: Acute (4) Influenza A Code(s): J10.1 - FLU DUE TO OTH IDENT INFLUENZA VIRUS W OTH RESP MANIFEST Status: Acute (5) Atrial flutter Code(s): I48.92 - UNSPECIFIED ATRIAL FLUTTER Status: Acute Comment: NSR now (6) Diabetes mellitus type 2 in nonobese Code(s): E11.9 - TYPE 2 DIABETES MELLITUS WITHOUT COMPLICATIONS Status: Chronic (7) Hypertension Code(s): I10 - ESSENTIAL (PRIMARY) HYPERTENSION Status: Chronic (8) BPH (benign prostatic hyperplasia) Code(s): N40.0 - BENIGN PROSTATIC HYPERPLASIA WITHOUT LOWER URINRY TRACT SYMP Status: Chronic (9) Fever Code(s): R50.9 - FEVER, UNSPECIFIED Status: Acute - Plan continue antibiotics, DVT proph w/SCDs Cont IV ABx. -: restart 1/2 NS as Sodium numbers high.hold lasix. -: vent weaning per PCCM. -: follow initial and repeat Cx results. -: am labs.remains critically ill * . Review of Systems - Review of Systems Other: unobtainable due to intubation/encephalopathy - Medications/Allergies Allergies/Adverse Reactions: Allergies Allergy/AdvReac Type Severity Reaction Status Date / Time No Known Allergies Allergy Verified 12/04/16 00:34 Medications: Current Medications Acetaminophen (Tylenol) 650 mg PO Q4H PRN PRN Reason: Headache/Fever or Pain Last Admin: 04/27/17 11:14 Dose: 650 mg Acetaminophen (Tylenol) 650 mg SD Q4H PRN PRN Reason: Headache/Fever or Pain Last Admin: 04/20/17 17:32 Dose: 650 mg Acetaminophen (Tylenol) 325 mg PO PRN PRN PRN Reason: Fever/Mild Pain 1ST LINE Albuterol/Ipratropium (Duoneb) 3 ml NEB [id number] [facility] Last Admin: 04/27/17 13:36 Dose: 3 ml Aspirin (Ecotrin) 81 mg PO QAM [facility] Last Admin: 04/27/17 08:15 Dose: 81 mg Bisacodyl (Dulcolax) 10 mg PO DAILYPRN PRN PRN Reason: Constipation Carvedilol (Coreg) 6.25 [facility] Dextrose/Water (Dextrose 50%) 25 gm SLOW IVP PRN PRN PRN Reason: Hypoglycemia Enoxaparin Sodium (Lovenox) 40 mg SC 0900 [facility] Last Admin: 04/27/17 08:16 Dose: 40 mg Glucagon (Glucagon) 1 mg IM PRN PRN PRN Reason: Hypoglycemia Potassium Chloride 40 meq/ (Sodium Chloride) 270 mls @ 135 mls/hr IVPB ASDIR PRN PRN Reason: FOR SERUM K+ 2.5 - 3.5 Potassium Chloride 40 meq/ (Device) 100 mls @ 50 mls/hr IVPB ASDIR PRN PRN Reason: FOR SERUM K+ 2.5 - 3.5 Magnesium Sulfate 1 gm/ Sodium (Chloride) 102 mls @ 102 mls/hr IV PRN PRN PRN Reason: MAG LEVEL 1.4 - 2.0 Magnesium Sulfate 2 gm/ Device 100 mls @ 100 mls/hr IVPB ASDIR PRN PRN Reason: MAGNESIUM < 1.4 Potassium Phosphate 9 mmol/ (Sodium Chloride) 103 mls @ 25.75 mls/hr IVPB ASDIR PRN PRN Reason: Phosphate 1.0-1.8 Last Admin: 04/23/17 06:48 Dose: 103 mls Potassium Phosphate 12 mmol/ (Sodium Chloride) 254 mls @ 63.5 mls/hr IV ASDIR PRN PRN Reason: Serum phosphate 0.5-0.9 Potassium Phosphate 15 mmol/ (Sodium Chloride) 255 mls @ 63.75 mls/hr IV ASDIR PRN PRN Reason: Serum Phos < 0.5 Sodium Chloride (Normal Saline 0.9%) 1,000 mls @ 0 mls/hr IV .Q0M [facility] PRN Reason: KVO Dextrose/Water (D5w) 1,000 mls @ 0 mls/hr IV .Q0M PRN; As Directed PRN Reason: Hypoglycemia Micafungin Sodium 100 mg/ (Sodium Chloride) 100 mls @ 100 mls/hr IVPB Q24H [facility] Stop: 04/28/17 15:01 Last Admin: 04/26/17 15:17 Dose: 100 mls Fentanyl Citrate (Fentanyl Bolus) 250 mls @ 0 mls/hr IVPB PRN PRN; As Directed PRN Reason: Breakthrough pain Stop: 05/25/17 19:14 Fentanyl Citrate 2,000 mcg/ (Sodium Chloride) 100 mls @ 0 mls/hr IV INF [facility] PRN Reason: As Directed Piperacillin Sod/Tazobactam (Sod 3.375 gm/ Sodium Chloride) 100 mls @ 200 mls/ hr IVPB Q6HR [facility] Stop: 05/03/17 12:01 Last Admin: 04/27/17 11:23 Dose: 100 mls Vancomycin HCl 750 mg/ Sodium (Chloride) 250 mls @ 250 mls/hr IVPB 0200,1400 [facility] Stop: 05/03/17 02:59 Last Admin: 04/27/17 01:51 Dose: 250 mls Potassium Chloride 30 meq/ (Sodium Chloride) 1,015 mls @ 0 mls/hr IV .Q0M [facility] PRN Reason: KVO Insulin Human Lispro (Humalog) 0 units SC .MODERATE SLIDING SC PRN PRN Reason: Moderate Correctional Scale Last Admin: 04/27/17 11:22 Dose: 10 units Magnesium Oxide (Magnesium Oxide) 400 mg PO BIDPRN PRN PRN Reason: FOR SERUM MAG 1.4 - 2.0 Last Admin: 04/22/17 22:19 Dose: 400 mg Magnesium Oxide (Magnesium Oxide) 800 mg PO PRN PRN PRN Reason: FOR SERUM MAG < 1.4 Methylprednisolone Sodium Succinate (Solu-Medrol) 40 mg IVP DAILY [facility] Last Admin: 04/27/17 08:16 Dose: 40 mg Miscellaneous Medication (Phos-Nak) 1 pkt PO TIDPRN PRN PRN Reason: FOR PHOS LEVEL 1.0 - 1.8 Miscellaneous Medication (Phos-Nak) 2 pkt PO TIDPRN PRN PRN Reason: FOR PHOS LEVEL 0.5 - 1.0 Miscellaneous Medication (Pharmacy To Dose) 1 each IVPB .VANCOMYCIN [facility] Discontinue Previous Narcotic Pain Medications And Benzodiazepines 1 each FS .ONE [facility] Stop: 05/25/17 19:14 Potassium Chloride (K-Dur) 40 meq PO ASDIR PRN PRN Reason: FOR SERUM K+ 2.5 - 3.5 Potassium Chloride (Klor-Con) 40 meq PER TUBE ASDIR PRN PRN Reason: FOR SERUM K+ 2.5-3.5 Last Admin: 04/27/17 05:10 Dose: 40 meq Propofol (Diprivan) 1,000 mg IV INF PRN; Protocol PRN Reason: TO ACHIEVE [place] SCORE 2-3 Stop: 05/25/17 19:14 Last Admin: 04/27/17 06:02 Dose: 1,000 mg Sodium Chloride (Flush - Normal Saline) 10 ml IVF Q12HR [facility] Last Admin: 04/27/17 08:15 Dose: 10 ml Sodium Chloride (Flush - Normal Saline) 10 ml IVF PRN PRN PRN Reason: Saline Flush
[2017-04-27] MEDS: Micafungin 100 MG in Sodium Chloride 0.9% 100 ML IVPB SCH (15:59)
[2017-04-27] MEDS: Carvedilol 6.25 MG TAB PO SCH (18:06)
[2017-04-28] MEDS: Propofol 1,000 MG/100 ML VIAL IV PRN ×2 (00:26→18:07)
[2017-04-28 01:22] LABS: Vancomycin, Trough 21.2 ug/mL
[2017-04-28] MEDS: HumaLOG 300 UNITS/3 ML VIAL SC PRN ×4 (03:37→20:39)
[2017-04-28] MEDS: Piperacillin/Tazobactam 3.375 GM in Sodium Chloride 0.9% 100 ML IVPB SCH ×4 (05:09→23:30)
[2017-04-28 05:25] LABS: Anion Gap 14 mmol/L (10-20); BUN (Urea Nitrogen) 85 mg/dL (8.4-25.7); Calc. Creatinine Clearance 37 mL/min (70-130); Calcium 7.6 mg/dL (7.8-10.44); Carbon Dioxide 27 mmol/L (23-31); Chloride 115 mmol/L (98-107); Estimated GFR-MDRD 48; Glucose 262 mg/dL (83-110); Sodium 152 mmol/L (136-145)
--- NOTE | 2017-04-28 08:08 | PDOC.CTH ---
<Charlene Ford - Last Filed: 04/28/17 08:06> Cardiology Progress Note - Subjective The pt seen and examined. No overnight events. HR is tend to be tachy possible due to temp 100.1 this AM. Still on Vent with Vent sedation - ROS not able to obtain ROS - Objective Vital Signs Temp Pulse Resp Pulse Ox 04/28/17 07:00 100.1 F H 04/28/17 06:00 34 H 04/28/17 04:00 36 H 04/28/17 03:00 99.1 F 04/28/17 02:58 86 28 H 94 L 04/28/17 02:00 32 H 04/28/17 00:00 99.1 F 33 H 04/27/17 23:00 100.4 F H 04/27/17 22:00 33 H 04/27/17 21:57 96 37 H 93 L Admit Weight 169 lb Weight 167 lb 8.821 oz 04/27/17 04/28/17 04/29/17 06:59 06:59 06:59 Intake Total 4109.5 3875.5 Output Total 1560 1415 75 Balance 2549.5 2460.5 -75 - Physical Examination Neck: no JVD present Lungs: other: (diminished at bases) Heart: RRR Abdomen: soft Extremities: other: (no edemas) - Telemetry Telemetry Rhythm: SR &ST with PVCs - Labs Result Diagrams: 04/27/17 04:11 04/28/17 04:37 - Assessment/Plan 1. A Fluter - Remains in SR with very frequent PVCs; tend to be tachy possible due to temp 100.1; Hx of Back to Afib with frequent PVCs during CODE events on 04/23/17; on Lovenox; cont. monitor on tele; possible Afib ablation when his condition is stable 2. Resp. failure 2ndary to Influenza B and PNA - Still with intubation with vent sedation; on IV antibiotics; managed by driver/sales workers/PCP 3. HTN - stable with current medication; cont. monitor 4. DM type 2 - on SS insulin; managed by PCP PIOTR reviewed * Echo result on 04/26/17 was pending at this time Review of Systems - Review of Systems Constitutional: reports: see HPI EENTM: reports: see HPI Respiratory: reports: see HPI Cardiac (ROS): reports: see HPI ABD/GI: reports: see HPI : reports: see HPI Musculoskeletal: reports: see HPI <Jacklyn Urrutiaan - Last Filed: 04/28/17 17:22> Cardiology Progress Note - Objective Vital Signs Temp Pulse Pulse Pulse Resp BP BP 04/28/17 16:00 25 H 04/28/17 15:46 104 H 141/53 H 04/28/17 15:00 100.1 F H 04/28/17 14:00 27 H 04/28/17 13:21 93 71 127/53 L 04/28/17 12:00 33 H 04/28/17 11:00 100.5 F H 04/28/17 10:57 124/56 L 04/28/17 10:55 97 124/56 L 04/28/17 10:00 36 H 04/28/17 08:00 100.1 F H 105 H 35 H 04/28/17 07:24 101 H 100/37 L 04/28/17 07:00 100.1 F H 04/28/17 06:00 34 H BP Pulse Ox Pulse Ox 04/28/17 16:00 04/28/17 15:46 04/28/17 15:00 04/28/17 14:00 04/28/17 13:21 113/50 L 96 96 04/28/17 12:00 04/28/17 11:00 04/28/17 10:57 04/28/17 10:55 04/28/17 10:00 04/28/17 08:00 04/28/17 07:24 04/28/17 07:00 04/28/17 06:00 Admit Weight 169 lb Weight 167 lb 8.821 oz 04/27/17 04/28/17 04/29/17 06:59 06:59 06:59 Intake Total 4109.5 3875.5 2189.7 Output Total 1560 1415 775 Balance 2549.5 2460.5 1414.7 - Labs Result Diagrams: 04/27/17 04:11 04/28/17 04:37 - Assessment/Plan Pt. seen and eval. by me. He is still intubated. I agree with the A/P by the JET WIPER. He remains in NSR at this time. His overall prognosis is not good and palliative care is being considered. Cardiac status is stable for now.
[2017-04-28] MEDS: Aspirin 81 mg Enteric Coated Tablet PO SCH (08:29)
[2017-04-28] MEDS: Enoxaparin Sodium 40 MG/0.4 ML SYRINGE SC SCH (08:30)
[2017-04-28] MEDS: Acetaminophen 325 MG TAB PO PRN (08:34)
[2017-04-28] MEDS ORDERED: POTASSIUM CHLORIDE IV SCH (08:56)
[2017-04-28] MEDS ORDERED: SODIUM CHLORIDE 0.45% IV SCH (08:56)
[2017-04-28] MEDS ORDERED: Vancomycin HCl 1.25 GM in Sodium Chloride 0.9% 250 ML 250 ML IVPB SCH (09:00)
--- NOTE | 2017-04-28 10:05 | PRG ---
DATE OF SERVICE: 04/28/2017 Status post intubation for respiratory failure. X-ray shows extensive bilateral bronchopneumonia. H yin is on fentanyl, but is arousable. PHYSICAL EXAMINATION: VITAL SIGNS: Temperature 100.1, blood pressure 100/47, pulse 62, respirations 18. I's and O's have been 4109 in, 156 out. CHEST: Chest reveals bilateral rhonchi and crackles. CARDIAC: Sinus tachycardia. ABDOMEN: Abdomen, soft, no masses. LABORATORY: Sodium is 152. BUN and creatinine 85 and 1.6. X-ray shows extensive pulmonary infiltrates. No gases was done. Sats are 90%. IMPRESSION: 1. Respiratory failure. 2. Bilateral bronchopneumonia. 3. Status post influenza B. 4. Renal failure. 5. Electrolyte imbalance. PLAN: He is clearly not weanable at this stage. So far, all cultures are apparently negative. This is day 9 on the vent. He is probably going to require a trach and a PEG. Will discuss with family as they arrive. In the meantime, continue steroids, neb treatments. We will follow. One half hour critical care time.
[2017-04-28] MEDS: fentaNYL Citrate/PF 2,000 MCG in Sodium Chloride 0.9% 60 ML IV SCH (10:44)
[2017-04-28] MEDS: Sodium Chloride 0.45% 1,000 ML IV SCH ×2 (10:55→20:47)
[2017-04-28] MEDS: Carvedilol 6.25 MG TAB PO SCH ×2 (10:57→17:46)
[2017-04-28] MEDS ORDERED: Insulin Detemir 100 UNITS/ML 10 UNITS in Pre-Filled Syringe 1 EACH SC SCH (14:15)
[2017-04-28] MEDS: Micafungin 100 MG in Sodium Chloride 0.9% 100 ML IVPB SCH (14:44)
--- NOTE | 2017-04-28 15:13 | PDOC.PN ---
- Subjective Encounter Start Date: 04/28/17 Encounter Start Time: 15:11 Subjective: no change.remains unweanable. - Objective MAR Reviewed: Yes Vital Signs & Weight: Vital Signs (12 hours) Temp Pulse Resp BP 04/28/17 14:00 27 H 04/28/17 12:00 33 H 04/28/17 11:00 100.5 F H 04/28/17 10:57 124/56 L 04/28/17 10:55 97 124/56 L 04/28/17 10:00 36 H 04/28/17 08:00 100.1 F H 105 H 35 H 04/28/17 07:24 101 H 100/37 L 04/28/17 07:00 100.1 F H 04/28/17 06:00 34 H 04/28/17 04:00 36 H Weight Admit Weight 169 lb Weight 167 lb 8.821 oz Most Recent Monitor Data Heart Rate from ECG 102 NIBP 112/52 NIBP BP-Mean 79 Respiration from ECG 30 SpO2 98 I&O: 04/27/17 04/28/17 04/29/17 06:59 06:59 06:59 Intake Total 4109.5 3875.5 60 Output Total 1560 1415 575 Balance 2549.5 2460.5 -515 Result Diagrams: 04/27/17 04:11 04/28/17 04:37 Additional Labs: Accuchecks 04/28/17 04/28/17 04/27/17 12:00 03:38 22:07 POC Glucose 357 H 275 H 276 H 04/27/17 16:09 POC Glucose 250 H Microbiology 04/20/17 17:36 Venous blood - Left Hand Blood Culture - Final NO GROWTH IN 5 DAYS 04/20/17 17:30 Venous blood - Right Hand Blood Culture - Final NO GROWTH IN 5 DAYS 04/20/17 10:50 Post Bronchial washings Respiratory Culture - Final Presumptive Keyla albicans 04/26/17 10:05 Sputum Respiratory Culture - Final Keyla albicans 04/26/17 09:30 Urine beasley catheter Urine Culture - Final NO GROWTH AT 48 HOURS 04/26/17 10:05 Sputum Respiratory Culture - Preliminary 04/26/17 09:50 Venous blood - Left Hand Blood Culture - Preliminary Specimen has been received and culture in progress. No Growth to date. 04/26/17 09:50 Venous blood - Left Hand Blood Culture - Preliminary NO GROWTH AT 48 HOURS 04/26/17 09:39 Venous blood - Right Hand Blood Culture - Preliminary Specimen has been received and culture in progress. No Growth to date. 04/26/17 09:39 Venous blood - Right Hand Blood Culture - Preliminary NO GROWTH AT 48 HOURS Selected Entries 04/27/17 04/28/17 04/28/17 23:00 00:00 03:00 Temperature 100.4 F H 99.1 F 99.1 F 04/28/17 07:00 Temperature 100.1 F H Phys Exam - Physical Examination Constitutional: NAD intubated.does not open eyes w verbal stimulus today HEENT: moist MMs, sclera anicteric Neck: no JVD Respiratory: no wheezing, no rales, no rhonchi Cardiovascular: RRR, no significant murmur Gastrointestinal: soft, non-tender, no distention, positive bowel sounds Musculoskeletal: no edema, pulses present Neurological: non-focal Deviation from normal: sedated Dx/Plan (1) Acute respiratory failure Code(s): J96.00 - ACUTE RESPIRATORY FAILURE, UNSP W HYPOXIA OR HYPERCAPNIA Status: Acute Qualifiers: Respiratory failure complication: hypoxia and hypercapnia Qualified Code(s) : J96.01 - Acute respiratory failure with hypoxia; J96.02 - Acute respiratory failure with hypercapnia; J96.02 - Acute respiratory failure with hypercapnia; J96.02 - Acute respiratory failure with hypercapnia (2) Pneumonia Code(s): J18.9 - PNEUMONIA, UNSPECIFIED ORGANISM Status: Acute (3) Hypernatremia Code(s): E87.0 - HYPEROSMOLALITY AND HYPERNATREMIA Status: Acute (4) Influenza A Code(s): J10.1 - FLU DUE TO OTH IDENT INFLUENZA VIRUS W OTH RESP MANIFEST Status: Acute (5) Atrial flutter Code(s): I48.92 - UNSPECIFIED ATRIAL FLUTTER Status: Acute Comment: NSR now (6) Diabetes mellitus type 2 in nonobese Code(s): E11.9 - TYPE 2 DIABETES MELLITUS WITHOUT COMPLICATIONS Status: Chronic (7) Hypertension Code(s): I10 - ESSENTIAL (PRIMARY) HYPERTENSION Status: Chronic (8) BPH (benign prostatic hyperplasia) Code(s): N40.0 - BENIGN PROSTATIC HYPERPLASIA WITHOUT LOWER URINRY TRACT SYMP Status: Chronic (9) Fever Code(s): R50.9 - FEVER, UNSPECIFIED Status: Acute - Plan continue antibiotics, respiratory therapy, incentive spirometry, out of bed/ ambulate, DVT proph w/SCDs Consult PCT for gaols of care.pt unweanable.? trach/PEG -: add levemir. -: cont rest as below.IV ABx.Cx repeated for Fever. -: Micafungin for keyla in bronch. -: am labs * . Review of Systems - Review of Systems Other: unobtainable due to sedatio and intubation - Medications/Allergies Allergies/Adverse Reactions: Allergies Allergy/AdvReac Type Severity Reaction Status Date / Time No Known Allergies Allergy Verified 12/04/16 00:34 Medications: Current Medications Acetaminophen (Tylenol) 650 mg PO Q4H PRN PRN Reason: Headache/Fever or Pain Last Admin: 04/28/17 08:34 Dose: 650 mg Acetaminophen (Tylenol) 650 mg TN Q4H PRN PRN Reason: Headache/Fever or Pain Last Admin: 04/20/17 17:32 Dose: 650 mg Acetaminophen (Tylenol) 325 mg PO PRN PRN PRN Reason: Fever/Mild Pain 1ST LINE Albuterol/Ipratropium (Duoneb) 3 ml NEB [id number] [facility] Last Admin: 04/28/17 10:55 Dose: 3 ml Aspirin (Ecotrin) 81 mg PO QAM [facility] Last Admin: 04/28/17 08:29 Dose: 81 mg Bisacodyl (Dulcolax) 10 mg PO DAILYPRN PRN PRN Reason: Constipation Carvedilol (Coreg) 6.25 mg PO BID-WM [facility] Last Admin: 04/28/17 10:57 Dose: Not Given Dextrose/Water (Dextrose 50%) 25 gm SLOW IVP PRN PRN PRN Reason: Hypoglycemia Enoxaparin Sodium (Lovenox) 40 mg SC 0900 [facility] Last Admin: 04/28/17 08:30 Dose: 40 mg Glucagon (Glucagon) 1 mg IM PRN PRN PRN Reason: Hypoglycemia Potassium Chloride 40 meq/ (Sodium Chloride) 270 mls @ 135 mls/hr IVPB ASDIR PRN PRN Reason: FOR SERUM K+ 2.5 - 3.5 Potassium Chloride 40 meq/ (Device) 100 mls @ 50 mls/hr IVPB ASDIR PRN PRN Reason: FOR SERUM K+ 2.5 - 3.5 Magnesium Sulfate 1 gm/ Sodium (Chloride) 102 mls @ 102 mls/hr IV PRN PRN PRN Reason: MAG LEVEL 1.4 - 2.0 Magnesium Sulfate 2 gm/ Device 100 mls @ 100 mls/hr IVPB ASDIR PRN PRN Reason: MAGNESIUM < 1.4 Potassium Phosphate 9 mmol/ (Sodium Chloride) 103 mls @ 25.75 mls/hr IVPB ASDIR PRN PRN Reason: Phosphate 1.0-1.8 Last Admin: 04/23/17 06:48 Dose: 103 mls Potassium Phosphate 12 mmol/ (Sodium Chloride) 254 mls @ 63.5 mls/hr IV ASDIR PRN PRN Reason: Serum phosphate 0.5-0.9 Potassium Phosphate 15 mmol/ (Sodium Chloride) 255 mls @ 63.75 mls/hr IV ASDIR PRN PRN Reason: Serum Phos < 0.5 Sodium Chloride (Normal Saline 0.9%) 1,000 mls @ 0 mls/hr IV .Q0M [facility] PRN Reason: KVO Dextrose/Water (D5w) 1,000 mls @ 0 mls/hr IV .Q0M PRN; As Directed PRN Reason: Hypoglycemia Fentanyl Citrate (Fentanyl Bolus) 250 mls @ 0 mls/hr IVPB PRN PRN; As Directed PRN Reason: Breakthrough pain Stop: 05/25/17 19:14 Fentanyl Citrate 2,000 mcg/ (Sodium Chloride) 100 mls @ 0 mls/hr IV INF [facility] PRN Reason: As Directed Last Admin: 04/28/17 10:44 Dose: 100 mls Piperacillin Sod/Tazobactam (Sod 3.375 gm/ Sodium Chloride) 100 mls @ 200 mls/ hr IVPB Q6HR [facility] Stop: 05/03/17 12:01 Last Admin: 04/28/17 11:59 Dose: 100 mls Vancomycin HCl 1.25 gm/ Sodium (Chloride) 250 mls @ 166.667 mls/hr IVPB 0900 [facility] Last Admin: 04/28/17 10:22 Dose: 250 mls Sodium Chloride (1/2 Normal Saline) 1,000 mls @ 75 mls/hr IV .[id number] [facility] Last Admin: 04/28/17 10:55 Dose: 1,000 mls Insulin Detemir 10 units/ (Miscellaneous Medication) 0.1 mls @ 0 mls/hr SC BID [facility] Insulin Detemir 10 units/ (Miscellaneous Medication) 0.1 mls @ 0 mls/hr SC NOW [facility] Stop: 04/28/17 16:15 Last Admin: 04/28/17 14:43 Dose: 0.1 mls Insulin Human Lispro (Humalog) 0 units SC .AGGRESSIVE SLIDING PRN; Protocol PRN Reason: AGGRESSIVE SLIDING SCALE Magnesium Oxide (Magnesium Oxide) 400 mg PO BIDPRN PRN PRN Reason: FOR SERUM MAG 1.4 - 2.0 Last Admin: 04/22/17 22:19 Dose: 400 mg Magnesium Oxide (Magnesium Oxide) 800 mg PO PRN PRN PRN Reason: FOR SERUM MAG < 1.4 Methylprednisolone Sodium Succinate (Solu-Medrol) 40 mg IVP DAILY [facility] Last Admin: 04/28/17 08:29 Dose: 40 mg Miscellaneous Medication (Phos-Nak) 1 pkt PO TIDPRN PRN PRN Reason: FOR PHOS LEVEL 1.0 - 1.8 Miscellaneous Medication (Phos-Nak) 2 pkt PO TIDPRN PRN PRN Reason: FOR PHOS LEVEL 0.5 - 1.0 Miscellaneous Medication (Pharmacy To Dose) 1 each IVPB .VANCOMYCIN [facility] Discontinue Previous Narcotic Pain Medications And Benzodiazepines 1 each FS .ONE [facility] Stop: 05/25/17 19:14 Potassium Chloride (K-Dur) 40 meq PO ASDIR PRN PRN Reason: FOR SERUM K+ 2.5 - 3.5 Potassium Chloride (Klor-Con) 40 meq PER TUBE ASDIR PRN PRN Reason: FOR SERUM K+ 2.5-3.5 Last Admin: 04/27/17 05:10 Dose: 40 meq Propofol (Diprivan) 1,000 mg IV INF PRN; Protocol PRN Reason: TO ACHIEVE [place] SCORE 2-3 Stop: 05/25/17 19:14 Last Admin: 04/28/17 00:26 Dose: 1,000 mg Sodium Chloride (Flush - Normal Saline) 10 ml IVF Q12HR [facility] Last Admin: 04/28/17 10:22 Dose: 10 ml Sodium Chloride (Flush - Normal Saline) 10 ml IVF PRN PRN PRN Reason: Saline Flush
[2017-04-28] MEDS: Insulin Detemir 100 UNITS/ML 10 UNITS in Pre-Filled Syringe 1 EACH SC SCH (20:22)
[2017-04-29] MEDS: HumaLOG 300 UNITS/3 ML VIAL SC PRN ×3 (04:21→16:49)
[2017-04-29] MEDS: Propofol 1,000 MG/100 ML VIAL IV PRN ×2 (04:25→19:55)
[2017-04-29] MEDS: Piperacillin/Tazobactam 3.375 GM in Sodium Chloride 0.9% 100 ML IVPB SCH ×4 (05:10→13:46)
[2017-04-29 05:21] LABS: Anion Gap 13 mmol/L (10-20); BUN (Urea Nitrogen) 88 mg/dL (8.4-25.7); Calc. Creatinine Clearance 34 mL/min (70-130); Calcium 7.2 mg/dL (7.8-10.44); Carbon Dioxide 26 mmol/L (23-31); Chloride 112 mmol/L (98-107); Estimated GFR-MDRD 44; Glucose 203 mg/dL (83-110); Potassium 4.1 mmol/L (3.5-5.1); Sodium 147 mmol/L (136-145)
[2017-04-29 05:54] LABS: Band 5 % (5-11); Hemoglobin 8.6 g/dL (14.0-18.0); Lymphocytes 2 % (21-51); MDiff Complete? YES; Mean Corpuscular HGB CONC 31.3 g/dL (32.0-36.0); Mean Corpuscular Hemoglobin 29.9 pg (27.0-31.0); Mean Corpuscular Volume 95.7 fl (80.0-94.0); Mean Platelet Volume 9.3 fL (7.4-10.4); Monocytes 2 % (0-10); Neutrophil 91 % (42-75); Platelet Count 148 thou/uL (130-400); RBC Distribution Width 12.9 % (11.5-14.5); Red Blood Cell (RBC) Count 2.87 mill/uL (4.70-6.10); White Blood Cell (WBC) Count 11.9 thou/uL (4.8-10.8)
[2017-04-29 07:23] LABS: Actual Bicarbonate (HCO3a) 25.7 mEq/L (22-26); Base Excess (BEa) 0.6 mEq/L (0 (+/-) 2.5); CO2 Tension 43.8 mmHg (35.0-45.0); Calcium, Ionized 1.1 mmol/L (1.12-1.30); Hematocrit-ABG 21.2 % (42.0-52.0); Hemoglobin (Hb) 7.7 g/dL (14.0-18.0); pH, Arterial 7.39 (7.35-7.45)
[2017-04-29 07:39] LABS: Puncture Site RR
[2017-04-29] MEDS: Aspirin 81 mg Enteric Coated Tablet PO SCH (08:12)
[2017-04-29] MEDS: Enoxaparin Sodium 40 MG/0.4 ML SYRINGE SC SCH (08:12)
[2017-04-29] MEDS: Carvedilol 6.25 MG TAB PO SCH ×2 (08:13→19:54)
--- NOTE | 2017-04-29 08:41 | RAD ---
CHEST ONE VIEW: History: Dyspnea. Follow up. Comparison: 04-26-17 FINDINGS: Cardiac silhouette is magnified by projection. Pulmonary vasculature remains engorged. Patchy bilater al infiltrates, most pronounced over each lung base and lateral aspect of the right upper lobe are si milar in appearance to the prior exam. Mediastinum is midline. Lines and tubes appear unchanged in po sition. surveillance system monitor leads overlie the chest. IMPRESSION: Bilateral parenchymal infiltrates and other findings are stable. POS: ALAN
--- NOTE | 2017-04-29 08:45 | PDOC.CTH ---
<Charlene Ford - Last Filed: 04/29/17 08:48> Cardiology Progress Note - Subjective The pt seen and examined. No overnight events. Still intubated with Vent sedation. - ROS not able to obtain ROS - Objective Vital Signs Temp Pulse Resp BP Pulse Ox 04/29/17 08:00 99.8 F H 24 H 04/29/17 07:15 95 118/40 L 04/29/17 06:00 22 H 04/29/17 04:00 99 F 24 H 04/29/17 02:17 93 25 H 98 04/29/17 02:00 22 H 04/29/17 00:00 23 H 04/28/17 23:00 99 F 04/28/17 22:04 94 25 H 97 04/28/17 22:00 22 H Admit Weight 169 lb Weight 167 lb 4.8 oz 04/28/17 04/29/17 04/30/17 06:59 06:59 06:59 Intake Total 3875.5 5286.2 Output Total 1415 1385 100 Balance 2460.5 3901.2 -100 - Physical Examination Neck: no JVD present Lungs: other: (diminished at bases) Heart: RRR Abdomen: soft Extremities: other: (1+ edemas in Bilat. foot) - Telemetry Telemetry Rhythm: SR&ST w/ frequent PVCs - Labs Result Diagrams: 04/29/17 04:30 04/29/17 04:30 - Assessment/Plan 1. A Fluter - Remains in SR with very frequent PVCs; Hx of Back to Afib with frequent PVCs during CODE events on 04/23/17; Lovenox was changed to Heparin 5000 units SQ BID due to increased Cr level; cont. monitor on tele; possible Afib ablation when his condition is stable 2. Resp. failure 2ndary to Influenza B and PNA - Still with intubation with vent sedation; on IV antibiotics; managed by unit educator/PCP 3. HTN - stable with current medication; cont. monitor 4. DM type 2 - on SS insulin; managed by PCP PIOTR reviewed * Echo result on 04/26/17 was pending at this time Review of Systems - Review of Systems Constitutional: reports: see HPI EENTM: reports: see HPI Respiratory: reports: see HPI Cardiac (ROS): reports: see HPI ABD/GI: reports: see HPI : reports: see HPI Musculoskeletal: reports: see HPI <UrrutiaJacklyn - Last Filed: 04/29/17 17:58> Cardiology Progress Note - Objective Vital Signs Temp Pulse Resp BP Pulse Ox 04/29/17 17:00 99.0 F 04/29/17 16:00 25 H 04/29/17 15:10 95 123/49 L 04/29/17 14:00 99.5 F 26 H 04/29/17 12:00 23 H 04/29/17 10:49 94 126/42 L 04/29/17 10:00 28 H 04/29/17 08:00 99.8 F H 93 23 H 98 04/29/17 07:15 95 118/40 L 04/29/17 06:00 22 H Admit Weight 169 lb Weight 167 lb 4.8 oz 04/28/17 04/29/17 04/30/17 06:59 06:59 06:59 Intake Total 3875.5 5286.2 2417.9 Output Total 1415 1385 655 Balance 2460.5 3901.2 1762.9 - Labs Result Diagrams: 04/29/17 04:30 04/29/17 04:30 - Assessment/Plan Pt. seen and eval. by me. I agree with the A/P by the DYE LAB TECHNICIAN. Plan is for trach. and PEG tomorrow. Pt. is not weanable . Cardiac status is stable.
[2017-04-29] MEDS: Insulin Detemir 100 UNITS/ML 10 UNITS in Pre-Filled Syringe 1 EACH SC SCH ×2 (08:47→21:14)
[2017-04-29] MEDS ORDERED: Piperacillin/Tazobactam 2.25 GM in Sodium Chloride 0.9% 100 ML IVPB SCH ×2 (12:55→14:00)
--- NOTE | 2017-04-29 12:59 | PDOC.PN ---
- Subjective Encounter Start Date: 04/29/17 Encounter Start Time: 12:35 Subjective: f/u for acute hypoxic resp failure on mech vent and unweanable. + Influenza -: A and HCAP on Zosyn and Levaquin. Likely will need trach/PEG. - Objective MAR Reviewed: Yes Vital Signs & Weight: Vital Signs (12 hours) Temp Pulse Resp BP Pulse Ox 04/29/17 10:49 94 126/42 L 04/29/17 10:00 28 H 04/29/17 08:00 99.8 F H 24 H 04/29/17 07:15 95 118/40 L 04/29/17 06:00 22 H 04/29/17 04:00 99 F 24 H 04/29/17 02:17 93 25 H 98 04/29/17 02:00 22 H Weight Admit Weight 169 lb Weight 167 lb 4.8 oz Most Recent Monitor Data Heart Rate from ECG 98 NIBP 112/45 NIBP BP-Mean 68 Respiration from ECG 24 SpO2 95 I&O: 04/28/17 04/29/17 04/30/17 06:59 06:59 06:59 Intake Total 3875.5 5286.2 Output Total 1415 1385 325 Balance 2460.5 3901.2 -325 Result Diagrams: 04/29/17 04:30 04/29/17 04:30 Additional Labs: Accuchecks 04/29/17 04/29/17 04/28/17 10:53 04:20 20:42 POC Glucose 175 H 194 H 223 H 04/28/17 16:45 POC Glucose 234 H Microbiology 04/26/17 10:05 Sputum Respiratory Culture - Final Keyla albicans 04/26/17 09:30 Urine beasley catheter Urine Culture - Final NO GROWTH AT 48 HOURS 04/26/17 09:50 Venous blood - Left Hand Blood Culture - Preliminary NO GROWTH AT 48 HOURS 04/26/17 09:39 Venous blood - Right Hand Blood Culture - Preliminary NO GROWTH AT 48 HOURS Laboratory Tests 04/23/17 04/24/17 04/25/17 03:27 03:20 04:40 WBC 27.9 H 23.1 H 23.1 H Hgb 10.1 L 10.7 L Sodium Creatinine Vancomycin Trough 04/26/17 04/27/17 04/27/17 03:59 04:11 04:11 WBC 18.5 H Hgb 10.1 L Sodium 151 H 153 H Creatinine 1.17 1.59 H Vancomycin Trough 04/28/17 04/28/17 00:54 04:37 WBC Hgb Sodium 152 H Creatinine 1.68 H Vancomycin Trough 21.2 Radiology Reviewed by me: Yes (PCXR - bilat infiltrates) EKG Reviewed by me: Yes (Tele - SR with PVC's) Phys Exam - Physical Examination Constitutional: NAD alert, nods to questions ETT in place HEENT: PERRLA Neck: no JVD, supple bilat coarse sounds Cardiovascular: RRR Gastrointestinal: soft, non-tender, no distention, positive bowel sounds Musculoskeletal: no edema, pulses present Neurological: moves all 4 limbs Skin: normal turgor, cap refill <2 seconds Deviation from normal: Beasley with onur urine Dx/Plan (1) Acute respiratory failure Code(s): J96.00 - ACUTE RESPIRATORY FAILURE, UNSP W HYPOXIA OR HYPERCAPNIA Status: Acute Qualifiers: Respiratory failure complication: hypoxia and hypercapnia Qualified Code(s) : J96.01 - Acute respiratory failure with hypoxia; J96.02 - Acute respiratory failure with hypercapnia; J96.02 - Acute respiratory failure with hypercapnia; J96.02 - Acute respiratory failure with hypercapnia Comment: Continue SIMV, likely will need trach/PEG as remains unweanable, family and pt ok with proceeding (2) Atrial flutter Code(s): I48.92 - UNSPECIFIED ATRIAL FLUTTER Status: Acute Comment: NSR now , frequent asymptomatic PVC's (3) Hypernatremia Code(s): E87.0 - HYPEROSMOLALITY AND HYPERNATREMIA Status: Acute Comment: Improved, continue increased free H2O, serial Na+ (4) Influenza A Code(s): J10.1 - FLU DUE TO OTH IDENT INFLUENZA VIRUS W OTH RESP MANIFEST Status: Acute Comment: Resolved (5) Pneumonia Code(s): J18.9 - PNEUMONIA, UNSPECIFIED ORGANISM Status: Acute Comment: Likely gm + cocci on current Zosyn and Levaquin, change Zosyn 2.25gm IV q6h due to renal function (6) Diabetes mellitus type 2 in nonobese Code(s): E11.9 - TYPE 2 DIABETES MELLITUS WITHOUT COMPLICATIONS Status: Chronic Comment: Levemir 10u SC BID, ISS (7) HILLARY (acute kidney injury) Code(s): N17.9 - ACUTE KIDNEY FAILURE, UNSPECIFIED Status: Acute Comment: Likely multifactorial and volume mediated, avoid nephrotoxic meds and contrast, renal adjustment to all doses - Plan plan discussed w/ family, continue antibiotics, PT/OT, social sciences professor, respiratory therapy, DVT proph w/SCDs continue supportive mgmt -: IV Zosyn and Levaquin -: Consult surgery for trach/PEG -: Nutritional support with Glucerna 1.2 at 60ml/h -: Continue free H2O supplementation * AM lab: BMP, CBC * PCXR in am
--- NOTE | 2017-04-29 13:18 | PRG ---
DATE OF SERVICE: 04/29/2017 SUBJECTIVE: Day #9 on the vent. Intubated, vented, and sedated. OBJECTIVE: VITAL SIGNS: Blood pressure 118/40, sats are 90%, respiratory rate 18. His I's and O's 3875 and 141 5 out. CHEST: Reveals bilateral rhonchi and crackles. CARDIAC: Sinus tachycardia. ABDOMEN: Soft. GENERAL: Intubated and sedated. LABORATORY DATA: White count 11,000, H and H 8 and 27, platelet count 148, pO2 of 120, PCO2 of 43, p H 7.39, AC mode, 55, 10 of PEEP, creatinine 1.7, BUN 88. IMPRESSION: 1. Respiratory failure, pneumonia, adult respiratory distress syndrome. 2. Influenza. 3. Renal failure. 4. Severe deconditioning. 5. Status post atrial fibrillation. PLAN: He is not weanable at this stage. This is going to require trach and PEG if we are going to g et him off the vent. In the meantime, continue steroids, neb treatments, antibiotics. We will follow. One-half hour critical care time.
[2017-04-29] MEDS: Sodium Chloride 0.45% 1,000 ML IV SCH (13:49)
[2017-04-29] MEDS: Heparin 5,000 UNITS/ML VIAL SC SCH (19:54)
[2017-04-29] MEDS: Piperacillin/Tazobactam 2.25 GM in Sodium Chloride 0.9% 50 ML IVPB SCH (19:55)
[2017-04-30] MEDS: Piperacillin/Tazobactam 2.25 GM in Sodium Chloride 0.9% 50 ML IVPB SCH ×4 (02:15→19:57)
[2017-04-30] MEDS: Sodium Chloride 0.45% 1,000 ML IV SCH ×2 (02:15→16:47)
[2017-04-30] MEDS: Propofol 1,000 MG/100 ML VIAL IV PRN ×2 (05:17→20:55)
[2017-04-30 05:31] LABS: Anion Gap 14 mmol/L (10-20); BUN (Urea Nitrogen) 87 mg/dL (8.4-25.7); Calc. Creatinine Clearance 34 mL/min (70-130); Calcium 7.6 mg/dL (7.8-10.44); Carbon Dioxide 28 mmol/L (23-31); Chloride 110 mmol/L (98-107); Estimated GFR-MDRD 42; Glucose 143 mg/dL (83-110); Potassium 4.6 mmol/L (3.5-5.1); Sodium 147 mmol/L (136-145)
[2017-04-30 05:35] LABS: #Lymphocytes 0.5 thou/uL (1.20-3.40); #Monocytes 0.3 thou/uL (0.11-0.59); #Neutrophils 7.9 thou/uL (1.40-6.50); %Basophils 0.1 % (0.0-1.0); %Eosinophils 0.2 % (0.0-10.0); %Lymphocytes 5.5 % (21.0-51.0); %Monocytes 2.9 % (0.0-10.0); %Neutrophils 91.4 % (42.0-75.0); Hemoglobin 9.3 g/dL (14.0-18.0); Mean Corpuscular HGB CONC 29.5 g/dL (32.0-36.0); Mean Corpuscular Hemoglobin 28.2 pg (27.0-31.0); Mean Corpuscular Volume 95.4 fl (80.0-94.0); Mean Platelet Volume 9.9 fL (7.4-10.4); Platelet Count 134 thou/uL (130-400); RBC Distribution Width 13.1 % (11.5-14.5); White Blood Cell (WBC) Count 8.7 thou/uL (4.8-10.8)
[2017-04-30 07:26] LABS: Actual Bicarbonate (HCO3a) 26.2 mEq/L (22-26); CO2 Tension 44.6 mmHg (35.0-45.0); Calcium, Ionized 1.1 mmol/L (1.12-1.30); Hematocrit-ABG 23.5 % (42.0-52.0); O2 Tension (PaO2) 87.6 mmHg (80.0-100.0); pH, Arterial 7.39 (7.35-7.45)
[2017-04-30 07:31] LABS: Puncture Site RR
--- NOTE | 2017-04-30 07:55 | RAD ---
PORTABLE SEMIUPRIGHT FRONTAL CHEST RADIOGRAPH: DATE: 04/30/17. COMPARISON: 04/29/17. HISTORY: Ventilated patient. FINDINGS: Endotracheal tube and nasogastric tube in stable position. No pneumothorax noted. There is patchy interstitial and alveolar opacity in bilateral perihilar regions in both lung bases, left greater than t. Focal opacity in medial left base suggests partial consolidation/collapse of le ft lower lobe. These findings are unchanged. IMPRESSION: Stable appearance of the chest. POS: LILIANA
--- NOTE | 2017-04-30 07:56 | PDOC.PULCC ---
CCU Progress Note: Subj/Obj - Subjective Date: 04/30/17 Time: 07:55 Subjective: Intubated and on vent - Objective Allergies/Adverse Reactions: Allergies Allergy/AdvReac Type Severity Reaction Status Date / Time No Known Allergies Allergy Verified 12/04/16 00:34 Medications: Current Medications Acetaminophen (Tylenol) 650 mg PO Q4H PRN PRN Reason: Headache/Fever or Pain Last Admin: 04/28/17 08:34 Dose: 650 mg Acetaminophen (Tylenol) 650 mg MA Q4H PRN PRN Reason: Headache/Fever or Pain Last Admin: 04/20/17 17:32 Dose: 650 mg Acetaminophen (Tylenol) 325 mg PO PRN PRN PRN Reason: Fever/Mild Pain 1ST LINE Albuterol/Ipratropium (Duoneb) 3 ml NEB [id number] [facility] Last Admin: 04/30/17 07:10 Dose: 3 ml Aspirin (Ecotrin) [facility] [place] Admin: 04/29/17 08:12 Dose: 81 mg Bisacodyl (Dulcolax) 10 mg PO DAILYPRN PRN PRN Reason: Constipation Carvedilol (Coreg) 6.25 mg PO BID-[facility] Last Admin: 04/29/17 19:54 Dose: 6.25 mg Dextrose/Water (Dextrose 50%) 25 gm SLOW IVP PRN PRN PRN Reason: Hypoglycemia Glucagon (Glucagon) 1 mg IM PRN PRN PRN Reason: Hypoglycemia Heparin Sodium (Porcine) (Heparin) 5,000 units SC BID [facility] [place] Last Admin: 04/29/17 19:54 Dose: 5,000 units Potassium Chloride 40 meq/ (Sodium Chloride) 270 mls @ 135 mls/hr IVPB ASDIR PRN PRN Reason: FOR SERUM K+ 2.5 - 3.5 Potassium Chloride 40 meq/ (Device) 100 mls @ 50 mls/hr IVPB ASDIR PRN PRN Reason: FOR SERUM K+ 2.5 - 3.5 Magnesium Sulfate 1 gm/ Sodium (Chloride) 102 mls @ 102 mls/hr IV PRN PRN PRN Reason: MAG LEVEL 1.4 - 2.0 Magnesium Sulfate 2 gm/ Device 100 mls @ 100 mls/hr IVPB ASDIR PRN PRN Reason: MAGNESIUM < 1.4 Potassium Phosphate 9 mmol/ (Sodium Chloride) 103 mls @ 25.75 mls/hr IVPB ASDIR PRN PRN Reason: Phosphate 1.0-1.8 Last Admin: 04/23/17 06:48 Dose: 103 mls Potassium Phosphate 12 mmol/ (Sodium Chloride) 254 mls @ 63.5 mls/hr IV ASDIR PRN PRN Reason: Serum phosphate 0.5-0.9 Potassium Phosphate 15 mmol/ (Sodium Chloride) 255 mls @ 63.75 mls/hr IV ASDIR PRN PRN Reason: Serum Phos < 0.5 Sodium Chloride (Normal Saline 0.9%) 1,000 mls @ 0 mls/hr IV .Q0M LEORA PRN Reason: KVO Dextrose/Water (D5w) 1,000 mls @ 0 mls/hr IV .Q0M PRN; As Directed PRN Reason: Hypoglycemia Fentanyl Citrate (Fentanyl Bolus) 250 mls @ 0 mls/hr IVPB PRN PRN; As Directed PRN Reason: Breakthrough pain Stop: 05/25/17 19:14 Fentanyl Citrate 2,000 mcg/ (Sodium Chloride) 100 mls @ 0 mls/hr IV INF LEORA PRN Reason: As Directed Last Admin: 04/28/17 10:44 Dose: 100 mls Sodium Chloride (1/2 Normal Saline) 1,000 mls @ 75 mls/hr IV .[id number] [facility] [place] Last Admin: 04/30/17 02:15 Dose: 1,000 mls Insulin Detemir 10 units/ (Miscellaneous Medication) 0.1 mls @ 0 mls/hr SC BID [facility] [place] Last Admin: 04/29/17 21:14 Dose: 0.1 mls Levofloxacin 250 mg/ Device 50 mls @ 100 mls/hr IVPB Q24HR [facility] [place] Stop: 05/06/17 08:31 Last Admin: 04/29/17 10:43 Dose: 50 mls Piperacillin Sod/Tazobactam (Sod 2.25 gm/ Sodium Chloride) 50 mls @ 100 mls/hr IVPB 0200,0800,1400,2000 [facility] [place] Last Admin: 04/30/17 02:15 Dose: 50 mls Insulin Human Lispro (Humalog) 0 units SC .AGGRESSIVE SLIDING PRN; Protocol PRN Reason: AGGRESSIVE SLIDING SCALE Last Admin: 04/29/17 16:49 Dose: 3 units Magnesium Oxide (Magnesium Oxide) 400 mg PO BIDPRN PRN PRN Reason: FOR SERUM MAG 1.4 - 2.0 Last Admin: 04/22/17 22:19 Dose: 400 mg Magnesium Oxide (Magnesium Oxide) 800 mg PO PRN PRN PRN Reason: FOR SERUM MAG < 1.4 Methylprednisolone Sodium Succinate (Solu-Medrol) 40 mg IVP DAILY [facility] [place] Last Admin: 04/29/17 08:47 Dose: 40 mg Miscellaneous Medication (Phos-Nak) 1 pkt PO TIDPRN PRN PRN Reason: FOR PHOS LEVEL 1.0 - 1.8 Miscellaneous Medication (Phos-Nak) 2 pkt PO TIDPRN PRN PRN Reason: FOR PHOS LEVEL 0.5 - 1.0 Discontinue Previous Narcotic Pain Medications And Benzodiazepines 1 each FS .ONE [facility] [place] Stop: 05/25/17 19:14 Potassium Chloride (K-Dur) 40 meq PO ASDIR PRN PRN Reason: FOR SERUM K+ 2.5 - 3.5 Potassium Chloride (Klor-Con) 40 meq PER TUBE ASDIR PRN PRN Reason: FOR SERUM K+ 2.5-3.5 Last Admin: 04/27/17 05:10 Dose: 40 meq Propofol (Diprivan) 1,000 mg IV INF PRN; Protocol PRN Reason: TO ACHIEVE [place] SCORE 2-3 Stop: 05/25/17 19:14 Last Admin: 04/30/17 05:17 Dose: 1,000 mg Sodium Chloride (Flush - Normal Saline) 10 ml IVF Q12HR [facility] [place] Last Admin: 04/29/17 19:54 Dose: 10 ml Sodium Chloride (Flush - Normal Saline) 10 ml IVF PRN PRN PRN Reason: Saline Flush MAR Reviewed: Yes Vital Signs and I&O: Vital Signs Temp 98.6 F 04/30/17 07:00 Pulse 86 04/30/17 07:11 Resp 22 H 04/30/17 06:00 BP 139/43 L 04/30/17 07:11 Pulse Ox 95 04/30/17 02:30 Intake & Output 04/29/17 04/30/17 04/30/17 18:59 06:59 18:59 Intake Total 2417.9 2194 Output Total 755 860 75 Balance 1662.9 1334 -75 Weight 173 lb 15.115 oz Intake: Intake, IV Amount 1137.9 1103 Propofol 1000 mg (See 43.9 64 Protocol) IV INF PRN Rx#: [id number] Sodium Chloride 0.45% 1, 1094 1039 000 ml @ 75 mls/hr IV . [id number] [facility] [place] Rx#:[id number] Tube Feeding 680 1031 Tube Irrigant 600 60 Output: Output, Pulido 755 860 75 Other: Voiding Method Indwelling Catheter Indwelling Catheter # Bowel Movements 1 Vent Setting: On SIMV, FiO2 50%) Spontaneous Breathing Test: done (Placed on CPAP/PS, result pending) CCU Progress Note: Exam - Physical Exam Constitutional: NAD HEENT: PERRLA, moist MMs, sclera anicteric Neck: no nodes, no JVD Cardiovascular: RRR, no significant murmur Focused Respiratory Location: rhonchi: Right, Left Gastrointestinal: soft, no distention, positive bowel sounds Musculoskeletal: edema present Neurological: moves all 4 limbs Lymphatic: no nodes Deviation from normal: sedated lightly Skin: no rash - Labs Result Diagrams: 04/30/17 04:40 04/30/17 04:40 Lab results: Laboratory Results - last 24 hr 04/29/17 04/29/17 04/29/17 10:53 16:41 21:13 WBC RBC Hgb Hct MCV MCH MCHC RDW Plt Count MPV Neutrophils % Lymphocytes % Monocytes % Eosinophils % Basophils % Neutrophils # Lymphocytes # Monocytes # Eosinophils # Basophils # Specimen Type Puncture Site Bicarbonate Actual ABG pH ABG pCO2 ABG pO2 ABG O2 Sat Calc/Bogdan ABG O2 Content ABG Base Excess ABG Hematocrit ABG Hemoglobin ABG Oxyhemoglobin ABG Carboxyhemoglobin ABG Methemoglobin ABG Deoxyhemoglobin Chema Test A-a O2 Gradient Ionized Calcium Mode of Support Mechanical Rate Inspired O2 Tidal Volume Pressure Support PEEP or CPAP Sodium Potassium Chloride Carbon Dioxide Anion Gap BUN Creatinine Estimated GFR (MDRD) Glucose POC Glucose 175 H 176 H 155 H Calcium 04/30/17 04/30/17 04/30/17 04:39 04:40 04:40 WBC 8.7 RBC 3.30 L Hgb 9.3 L Hct 31.5 L MCV 95.4 H MCH 28.2 MCHC 29.5 L RDW 13.1 Plt Count 134 MPV 9.9 Neutrophils % 91.4 H Lymphocytes % 5.5 L Monocytes % 2.9 Eosinophils % 0.2 Basophils % 0.1 Neutrophils # 7.9 H Lymphocytes # 0.5 L Monocytes # 0.3 Eosinophils # 0.0 Basophils # 0.0 Specimen Type Puncture Site Bicarbonate Actual ABG pH ABG pCO2 ABG pO2 ABG O2 Sat Calc/Bogdan ABG O2 Content ABG Base Excess ABG Hematocrit ABG Hemoglobin ABG Oxyhemoglobin ABG Carboxyhemoglobin ABG Methemoglobin ABG Deoxyhemoglobin Chema Test A-a O2 Gradient Ionized Calcium Mode of Support Mechanical Rate Inspired O2 Tidal Volume Pressure Support PEEP or CPAP Sodium 147 H Potassium 4.6 Chloride 110 H Carbon Dioxide 28 Anion Gap 14 BUN 87 H Creatinine 1.89 H Estimated GFR (MDRD) 42 Glucose 143 H POC Glucose 143 H Calcium 7.6 L 04/30/17 07:11 WBC RBC Hgb Hct MCV MCH MCHC RDW Plt Count MPV Neutrophils % Lymphocytes % Monocytes % Eosinophils % Basophils % Neutrophils # Lymphocytes # Monocytes # Eosinophils # Basophils # Specimen Type ARTERIAL Puncture Site RR Bicarbonate Actual 26.2 H ABG pH 7.39 ABG pCO2 44.6 ABG pO2 87.6 ABG O2 Sat Calc/Bogdan 97.2 ABG O2 Content 10.9 L ABG Base Excess 1.0 ABG Hematocrit 23.5 L ABG Hemoglobin 8.0 L ABG Oxyhemoglobin 95.6 ABG Carboxyhemoglobin 1.2 ABG Methemoglobin 0.4 ABG Deoxyhemoglobin 2.8 Chema Test POSITIVE A-a O2 Gradient 211.150 H Ionized Calcium 1.1 L Mode of Support SIMV Mechanical Rate 16 Inspired O2 50 Tidal Volume 450 Pressure Support 10 PEEP or CPAP 8.0 Sodium 144 Potassium 4.1 Chloride 106 Carbon Dioxide Anion Gap BUN Creatinine Estimated GFR (MDRD) Glucose POC Glucose Calcium CCU Progress Note: A/P - Problems (1) Acute respiratory failure Current Visit: Yes Status: Acute Code(s): J96.00 - ACUTE RESPIRATORY FAILURE , UNSP W HYPOXIA OR HYPERCAPNIA Qualifiers: Respiratory failure complication: hypoxia and hypercapnia Qualified Code(s) : J96.01 - Acute respiratory failure with hypoxia; J96.02 - Acute respiratory failure with hypercapnia; J96.02 - Acute respiratory failure with hypercapnia; J96.02 - Acute respiratory failure with hypercapnia (2) Influenza A Current Visit: Yes Status: Acute Code(s): J10.1 - FLU DUE TO OTH IDENT INFLUENZA VIRUS W OTH RESP MANIFEST - Time Spent with Patient Time: 35 min cc time - Plan Plan: Pt has been on ventilator for 11 days. So far has been too weak to wean. He is significantly fluid overload and therefore may benefit from more aggressive diuresis. I need to speak to family about trach/peg. Trying SBT today.
--- NOTE | 2017-04-30 07:57 | PDOC.CTH ---
<Charlene Ford - Last Filed: 04/30/17 10:25> Cardiology Progress Note - Subjective The pt seen and examined. No overnight events. Still intubated with vent sedation. Pt. is not weanable at this moment. Possible Trach and PEG tube placement - ROS not able to obtain ROS - Objective Vital Signs Temp Pulse Resp BP Pulse Ox 04/30/17 07:11 86 139/43 L 04/30/17 07:00 98.6 F 04/30/17 06:00 22 H 04/30/17 04:00 23 H 04/30/17 03:00 98.6 F 04/30/17 02:30 84 24 H 95 04/30/17 02:00 22 H 04/30/17 00:00 98.1 F 85 20 96 04/29/17 23:00 98.5 F 04/29/17 22:42 79 24 H 96 04/29/17 22:00 26 H 04/29/17 20:00 98.4 F 86 21 H 94 L Admit Weight 169 lb Weight 173 lb 15.115 oz 04/29/17 04/30/17 05/01/17 06:59 06:59 06:59 Intake Total 5286.2 4611.9 Output Total 1385 1615 75 Balance 3901.2 2996.9 -75 - Physical Examination Neck: no JVD present Lungs: other: (coase and diminished at bases) Heart: RRR Abdomen: soft Extremities: other: (1+ pitting edema in bilat foot) - Telemetry Telemetry Rhythm: SR w/PACs and PVCs - Labs Result Diagrams: 04/30/17 04:40 04/30/17 04:40 - Assessment/Plan 1. A Fluter - Remains in SR with very frequent PVCs; Hx of Back to Afib with frequent PVCs during CODE events on 04/23/17; cont. monitor on tele; possible Afib ablation when his condition is stable 2. Resp. failure 2ndary to Influenza and PNA - Still intubated with vent sedation; on IV antibiotics; Plan is for trach and PEG placement; managed by filter pulp washer/PCP 3. HTN - stable with current medication; cont. monitor 4. DM type 2 - on SS insulin; managed by PCP PIOTR elliott * Echo on 04/26/17 showed EF 50-55%, normal LV size, mild MR, and TDS Review of Systems - Review of Systems Constitutional: reports: see HPI EENTM: reports: see HPI Respiratory: reports: see HPI Cardiac (ROS): reports: see HPI ABD/GI: reports: see HPI : reports: see HPI Musculoskeletal: reports: see HPI <Jacklyn Urrutia - Last Filed: 04/30/17 16:18> Cardiology Progress Note - Objective Vital Signs Temp Pulse Pulse Pulse Resp BP BP 04/30/17 14:00 16 04/30/17 13:48 77 96/36 L 04/30/17 12:00 21 H 04/30/17 11:01 77 107/44 L 04/30/17 10:52 98.6 F 04/30/17 09:59 22 H 04/30/17 09:40 92 90 129/46 L 04/30/17 08:39 123/42 L 04/30/17 08:00 20 04/30/17 07:42 98.3 F 85 27 H 04/30/17 07:11 86 139/43 L 04/30/17 07:00 98.6 F 04/30/17 06:00 22 H BP Pulse Ox Pulse Ox Pulse Ox 04/30/17 14:00 04/30/17 13:48 04/30/17 12:00 04/30/17 11:01 04/30/17 10:52 04/30/17 09:59 04/30/17 09:40 127/44 L 95 96 04/30/17 08:39 04/30/17 08:00 04/30/17 07:42 96 04/30/17 07:11 04/30/17 07:00 04/30/17 06:00 Admit Weight 169 lb Weight 173 lb 15.115 oz 04/29/17 04/30/17 05/01/17 06:59 06:59 06:59 Intake Total 5286.2 4611.9 764 Output Total 1385 1615 1190 Balance 3901.2 2996.9 -426 - Labs Result Diagrams: 04/30/17 04:40 04/30/17 04:40 - Assessment/Plan Pt. seen and eval. I agree with the A/P by the ENTERPRISE SYSTEMS MANAGER.His cardiac status remains stable. Chest is clear anteriorly. RRR with occ. PVC's.
[2017-04-30] MEDS ORDERED: Furosemide 40 MG/4 ML VIAL SLOW IVP SCH (08:00)
[2017-04-30] MEDS: Carvedilol 6.25 MG TAB PO SCH ×2 (08:39→16:47)
[2017-04-30] MEDS: Aspirin 81 mg Enteric Coated Tablet PO SCH (08:39)
[2017-04-30] MEDS: Heparin 5,000 UNITS/ML VIAL SC SCH ×2 (08:39→20:58)
[2017-04-30] MEDS: Insulin Detemir 100 UNITS/ML 10 UNITS in Pre-Filled Syringe 1 EACH SC SCH ×2 (08:40→21:00)
[2017-04-30] MEDS: HumaLOG 300 UNITS/3 ML VIAL SC PRN ×2 (15:54→22:15)
--- NOTE | 2017-04-30 17:53 | PDOC.PN ---
- Subjective Encounter Start Date: 04/30/17 Encounter Start Time: 17:05 Subjective: f/u acute hypoxic resp failure with Influenza A + and HCAP on Zosyn and -: Levaquin. Starting spont breathing trials per Pulmonology. - Objective MAR Reviewed: Yes Vital Signs & Weight: Vital Signs (12 hours) Temp Pulse Pulse Pulse Resp BP BP 04/30/17 16:47 113/44 L 04/30/17 16:00 98.5 F 20 04/30/17 14:00 16 04/30/17 13:48 77 96/36 L 04/30/17 12:00 21 H 04/30/17 11:01 77 107/44 L 04/30/17 10:52 98.6 F 04/30/17 09:59 22 H 04/30/17 09:40 92 90 129/46 L 04/30/17 08:39 123/42 L 04/30/17 08:00 20 04/30/17 07:42 98.3 F 85 27 H 04/30/17 07:11 86 139/43 L 04/30/17 07:00 98.6 F 04/30/17 06:00 22 H BP Pulse Ox Pulse Ox Pulse Ox 04/30/17 16:47 04/30/17 16:00 04/30/17 14:00 04/30/17 13:48 04/30/17 12:00 04/30/17 11:01 04/30/17 10:52 04/30/17 09:59 04/30/17 09:40 127/44 L 95 96 04/30/17 08:39 04/30/17 08:00 04/30/17 07:42 96 04/30/17 07:11 04/30/17 07:00 04/30/17 06:00 Weight Admit Weight 169 lb Weight 173 lb 15.115 oz Most Recent Monitor Data Heart Rate from ECG 85 NIBP 100/40 NIBP BP-Mean 76 Respiration from ECG 20 SpO2 96 I&O: 04/29/17 04/30/17 05/01/17 06:59 06:59 06:59 Intake Total 5286.2 4611.9 764 Output Total 1385 1615 1670 Balance 3901.2 2996.9 -906 Result Diagrams: 04/30/17 04:40 04/30/17 04:40 Additional Labs: Accuchecks 04/30/17 04/30/17 04/30/17 15:54 09:39 04:39 POC Glucose 170 H 115 H 143 H 04/29/17 21:13 POC Glucose 155 H Radiology Reviewed by me: Yes (PCXR - bilat L>R patchy infiltrates in perihilar regions) EKG Reviewed by me: Yes (Tele - SR with PVC's) Phys Exam - Physical Examination Constitutional: NAD Opens eyes and nods to conversation and family ETT in place HEENT: PERRLA, oral pharynx no lesions Neck: no JVD, supple diminished in bases Respiratory: no wheezing Cardiovascular: RRR Gastrointestinal: soft, non-tender, no distention, positive bowel sounds mild edema Musculoskeletal: pulses present Neurological: moves all 4 limbs Skin: normal turgor, cap refill <2 seconds Deviation from normal: Pulido with onur urine Dx/Plan (1) Acute respiratory failure Code(s): J96.00 - ACUTE RESPIRATORY FAILURE, UNSP W HYPOXIA OR HYPERCAPNIA Status: Acute Qualifiers: Respiratory failure complication: hypoxia and hypercapnia Qualified Code(s) : J96.01 - Acute respiratory failure with hypoxia; J96.02 - Acute respiratory failure with hypercapnia; J96.02 - Acute respiratory failure with hypercapnia; J96.02 - Acute respiratory failure with hypercapnia Comment: Continue SIMV, spont breathing trial attempt per Pulmonology (2) Atrial flutter Code(s): I48.92 - UNSPECIFIED ATRIAL FLUTTER Status: Acute Comment: NSR now , frequent asymptomatic PVC's (3) Hypernatremia Code(s): E87.0 - HYPEROSMOLALITY AND HYPERNATREMIA Status: Acute Comment: Improved, continue increased free H2O, serial Na+ (4) Influenza A Code(s): J10.1 - FLU DUE TO OTH IDENT INFLUENZA VIRUS W OTH RESP MANIFEST Status: Acute Comment: Resolved (5) Pneumonia Code(s): J18.9 - PNEUMONIA, UNSPECIFIED ORGANISM Status: Acute Comment: Likely gm + cocci on current Zosyn and Levaquin, change Zosyn 2.25gm IV q6h due to renal function (6) Diabetes mellitus type 2 in nonobese Code(s): E11.9 - TYPE 2 DIABETES MELLITUS WITHOUT COMPLICATIONS Status: Chronic Comment: Levemir 10u SC BID, ISS (7) HILLARY (acute kidney injury) Code(s): N17.9 - ACUTE KIDNEY FAILURE, UNSPECIFIED Status: Acute Comment: Likely multifactorial and volume mediated, avoid nephrotoxic meds and contrast, renal adjustment to all doses - Plan continue antibiotics, licensed social worker, respiratory therapy, DVT proph w/SCDs Continue critical pulmonary support -: Spont breathing trials -: Nutritional support with Glucerna 1.2 at 60ml/h -: Continue Zosyn and Levaquin -: AM lab: BMP, CBC * .
[2017-04-30] MEDS: fentaNYL Citrate/PF 2,000 MCG in Sodium Chloride 0.9% 60 ML IV SCH (21:20)
[2017-05-01] MEDS: Piperacillin/Tazobactam 2.25 GM in Sodium Chloride 0.9% 50 ML IVPB SCH ×4 (01:14→19:27)
[2017-05-01] MEDS: Sodium Chloride 0.45% 1,000 ML IV SCH ×2 (03:45→13:30)
[2017-05-01] MEDS: HumaLOG 300 UNITS/3 ML VIAL SC PRN (04:29)
[2017-05-01 06:28] LABS: Anion Gap 15 mmol/L (10-20); Calcium 7.3 mg/dL (7.8-10.44); Carbon Dioxide 21 mmol/L (23-31); Chloride 109 mmol/L (98-107); Potassium 4.7 mmol/L (3.5-5.1); Sodium 140 mmol/L (136-145)
[2017-05-01 06:37] LABS: #Eosinphils 0.1 thou/uL (0.0-0.7); #Lymphocytes 0.5 thou/uL (1.20-3.40); #Monocytes 0.3 thou/uL (0.11-0.59); #Neutrophils 8.7 thou/uL (1.40-6.50); %Basophils 0.4 % (0.0-1.0); %Eosinophils 0.8 % (0.0-10.0); %Lymphocytes 5.1 % (21.0-51.0); %Monocytes 3.3 % (0.0-10.0); %Neutrophils 90.5 % (42.0-75.0); Hemoglobin 8.3 g/dL (14.0-18.0); Mean Corpuscular HGB CONC 31.5 g/dL (32.0-36.0); Mean Corpuscular Hemoglobin 30.1 pg (27.0-31.0); Mean Corpuscular Volume 95.7 fl (80.0-94.0); Mean Platelet Volume 10.3 fL (7.4-10.4); PLT Morphology Comment Appears Decreased; Platelet Count 115 thou/uL (130-400); Red Blood Cell (RBC) Count 2.74 mill/uL (4.70-6.10); White Blood Cell (WBC) Count 9.6 thou/uL (4.8-10.8)
[2017-05-01 06:46] LABS: ALV-art Gradient 184.325 (0-20); Actual Bicarbonate (HCO3a) 26.7 mEq/L (22-26); Base Excess (BEa) 1.7 mEq/L (0 (+/-) 2.5); CO2 Tension 44.1 mmHg (35.0-45.0); Calcium, Ionized 1.1 mmol/L (1.12-1.30); Hematocrit-ABG 24.3 % (42.0-52.0); Hemoglobin (Hb) 7.7 g/dL (14.0-18.0); O2 Tension (PaO2) 76.9 mmHg (80.0-100.0); Puncture Site RRA
[2017-05-01 07:18] LABS: BUN (Urea Nitrogen) 91 mg/dL (8.4-25.7); Calc. Creatinine Clearance 34 mL/min (70-130); Estimated GFR-MDRD 40; Glucose 152 mg/dL (83-110)
[2017-05-01] MEDS: Carvedilol 6.25 MG TAB PO SCH ×2 (08:26→16:48)
[2017-05-01] MEDS: Heparin 5,000 UNITS/ML VIAL SC SCH ×2 (08:27→20:19)
[2017-05-01] MEDS: Insulin Detemir 100 UNITS/ML 10 UNITS in Pre-Filled Syringe 1 EACH SC SCH ×2 (08:28→20:19)
--- NOTE | 2017-05-01 08:33 | RAD ---
FRONTAL RADIOGRAPH CHEST: DATE: 05/01/17. COMPARISON: 04/26/17 and 04/30/17. HISTORY: Ventilated patient. FINDINGS: Stable endotracheal tube and nasogastric tube noted. No pneumothorax is evidence. There is extensive interstitial opacity within bilateral perihilar regions of both lung bases with fo jayme consolidation in the medial left lung base and reticulonodular densities in the perihilar regions and lung bases. When compared to the 04/30/17 study, the aeration within the lungs has not significa ntly changed. IMPRESSION: Stable interstitial and alveolar opacities, nonspecific. POS: [facility]
[2017-05-01] MEDS ORDERED: DC Sedation Protocol FS ONE (09:13)
--- NOTE | 2017-05-01 10:03 | PRG ---
DATE OF SERVICE: 05/01/2017 A 35 minutes critical care time. SUBJECTIVE: Mr. Toscano is awake, alert, and following commands for me today. He has been on a weani ng trial this morning, so far he has passed. PHYSICAL EXAMINATION: VITAL SIGNS: Temperature 98.4, pulse 90, blood pressure 182/53, O2 saturation 96%. A 24-hour intake 4592, output 2720, weight 183 pounds. HEENT: Unremarkable. NECK: No JVD. LUNGS: Coarse breath sounds. CARDIOVASCULAR: S1, S2 regular. ABDOMEN: Soft. EXTREMITIES: No edema. LABORATORY DATA: White blood cell count 9.6, hematocrit 26.2, platelet count 115. PH 7.40, pCO2 44, pO2 76 on CPAP 5, pressure support 10, FIO2 45%. Sodium 140, potassium 4.7, chloride 109, CO2 21, B UN 91, creatinine 1.9, glucose 152. X-RAY FINDINGS: Chest x-ray shows improved bilateral infiltrates. ASSESSMENT: 1. Acute respiratory failure requiring mechanical ventilation. 2. Influenza A. 3. Renal insufficiency. PLAN: If he passed a weaning trial, we will attempt extubation. I do think he has a risk of failing and perhaps would have to be reintubated and tracheostomy considered if he fails. I think it is wor th trying the patient extubate and see how he does.
--- NOTE | 2017-05-01 13:10 | PDOC.CTH ---
<Charlene Ford - Last Filed: 05/01/17 13:08> Cardiology Progress Note - Subjective The pt seen and examined. No overnight events. No cardiac complaints. He was extubated today. He can follow commands and answer correctly. - Objective Vital Signs Temp Pulse Pulse Pulse Resp BP BP 05/01/17 12:00 98.0 F 05/01/17 10:54 81 16 05/01/17 10:45 93 86 172/59 H 05/01/17 09:07 94 05/01/17 08:26 177/44 H 05/01/17 08:00 20 05/01/17 07:42 96 177/44 H 05/01/17 07:32 98.4 F 99 20 05/01/17 07:00 98.4 F 05/01/17 06:00 19 05/01/17 04:00 98.0 F 18 05/01/17 03:03 84 16 05/01/17 02:00 18 BP Pulse Ox Pulse Ox Pulse Ox 05/01/17 12:00 05/01/17 10:54 05/01/17 10:45 155/48 H 100 100 05/01/17 09:07 98 05/01/17 08:26 05/01/17 08:00 05/01/17 07:42 05/01/17 07:32 96 05/01/17 07:00 05/01/17 06:00 05/01/17 04:00 05/01/17 03:03 96 05/01/17 02:00 Admit Weight 169 lb Weight 183 lb 3.266 oz 04/30/17 05/01/17 05/02/17 06:59 06:59 06:59 Intake Total 4611.9 4592.6 488 Output Total 1615 2720 485 Balance 2996.9 1872.6 3 - Physical Examination General/Neuro: alert & oriented x3 Neck: no JVD present Lungs: other: (diminished at bases) Heart: RRR Abdomen: soft Extremities: other: (edema to bilat foot) - Telemetry Telemetry Rhythm: SR with PVCs PACs - Labs Result Diagrams: 05/01/17 05:05 05/01/17 05:05 - Assessment/Plan 1. A Fluter - Remains in SR with very frequent PVCs; Hx of Back to Afib with frequent PVCs during CODE events on 04/23/17; cont. monitor on tele; possible Afib ablation when his condition is stable 2. Resp. failure 2ndary to Influenza and PNA - Extubated today and on NC without any distress; on antibiotics; managed by impact hammer operator/PCP 3. HTN - Increase Coreg from 6.25mg to 12.5mg BID; cont. monitor 4. DM type 2 - on SS insulin; managed by PCP 5. Anemia - Hgb today is 8.6 MAR reviewed * Echo on 04/26/17 showed EF 50-55%, normal LV size, mild MR, and TDS Review of Systems - Review of Systems Constitutional: reports: no symptoms reported EENTM: reports: no symptoms reported Respiratory: reports: no symptoms reported Cardiac (ROS): reports: no symptoms reported ABD/GI: reports: no symptoms reported : reports: no symptoms reported Musculoskeletal: reports: no symptoms reported <Jacklyn Urrutia - Last Filed: 05/01/17 17:48> Cardiology Progress Note - Objective Vital Signs Temp Pulse Pulse Pulse Resp BP BP 05/01/17 16:48 147/52 H 05/01/17 16:00 97.9 F 05/01/17 15:02 87 20 05/01/17 12:00 98.0 F 05/01/17 10:54 81 16 05/01/17 10:45 93 86 172/59 H 05/01/17 09:07 94 05/01/17 08:26 177/44 H 05/01/17 08:00 20 05/01/17 07:42 96 177/44 H 05/01/17 07:32 98.4 F 99 20 05/01/17 07:00 98.4 F 05/01/17 06:00 19 BP Pulse Ox Pulse Ox Pulse Ox 05/01/17 16:48 05/01/17 16:00 05/01/17 15:02 05/01/17 12:00 05/01/17 10:54 05/01/17 10:45 155/48 H 100 100 05/01/17 09:07 98 05/01/17 08:26 05/01/17 08:00 05/01/17 07:42 05/01/17 07:32 96 05/01/17 07:00 05/01/17 06:00 Admit Weight 169 lb Weight 183 lb 3.266 oz 04/30/17 05/01/17 05/02/17 06:59 06:59 06:59 Intake Total 4611.9 4592.6 648 Output Total 1615 2720 1075 Balance 2996.9 1872.6 -427 - Labs Result Diagrams: 05/01/17 05:05 05/01/17 05:05 - Assessment/Plan Pt. seen and eval. He is alert and answers questions. He remains in NSR. I agree with the A/P by the DRUG ABUSE RESISTANCE EDUCATION OFFICER. His labs indicate that he is vol. depleted with pre-renal azotemis. Perhaps this will improve when he is drinking fluids now that he is extubated.. Chest clear, RRR with occ. ectopy.
--- NOTE | 2017-05-01 14:57 | PDOC.PN ---
- Subjective Encounter Start Date: 05/01/17 Encounter Start Time: 14:40 Subjective: f/u for acute hypoxic resp failure successfully extubated. Stable per -: nursing. Consider LTAC referral to [place] HCAP/Influenza A + on -: Zosyn and Levaquin. - Objective MAR Reviewed: Yes Vital Signs & Weight: Vital Signs (12 hours) Temp Pulse Pulse Pulse Resp BP BP 05/01/17 12:00 98.0 F 05/01/17 10:54 81 16 05/01/17 10:45 93 86 172/59 H 05/01/17 09:07 94 05/01/17 08:26 177/44 H 05/01/17 08:00 20 05/01/17 07:42 96 177/44 H 05/01/17 07:32 98.4 F 99 20 05/01/17 07:00 98.4 F 05/01/17 06:00 19 05/01/17 04:00 98.0 F 18 05/01/17 03:03 84 16 BP Pulse Ox Pulse Ox Pulse Ox 05/01/17 12:00 05/01/17 10:54 05/01/17 10:45 155/48 H 100 100 05/01/17 09:07 98 05/01/17 08:26 05/01/17 08:00 05/01/17 07:42 05/01/17 07:32 96 05/01/17 07:00 05/01/17 06:00 05/01/17 04:00 05/01/17 03:03 96 Weight Admit Weight 169 lb Weight 183 lb 3.266 oz Most Recent Monitor Data Heart Rate from ECG 93 NIBP 156/63 NIBP BP-Mean 97 Respiration from ECG 23 SpO2 100 I&O: 04/30/17 05/01/17 05/02/17 06:59 06:59 06:59 Intake Total 4611.9 4592.6 588 Output Total 1615 2720 635 Balance 2996.9 1872.6 -47 Result Diagrams: 05/01/17 05:05 05/01/17 05:05 Additional Labs: Accuchecks 05/01/17 05/01/17 04/30/17 09:29 04:24 22:13 POC Glucose 141 H 165 H 190 H 04/30/17 15:54 POC Glucose 170 H Microbiology 04/26/17 10:05 Sputum Respiratory Culture - Final Keyla albicans 04/26/17 09:30 Urine beasley catheter Urine Culture - Final NO GROWTH AT 48 HOURS 04/26/17 09:50 Venous blood - Left Hand Blood Culture - Preliminary NO GROWTH AT 48 HOURS 04/26/17 09:39 Venous blood - Right Hand Blood Culture - Preliminary NO GROWTH AT 48 HOURS Laboratory Tests 04/23/17 04/24/17 04/25/17 03:27 03:20 04:40 WBC 27.9 H 23.1 H 23.1 H Hgb 10.1 L 10.7 L Sodium Creatinine Vancomycin Trough 04/26/17 04/27/17 04/27/17 03:59 04:11 04:11 WBC 18.5 H Hgb 10.1 L Sodium 151 H 153 H Creatinine 1.17 1.59 H Vancomycin Trough 04/28/17 04/28/17 00:54 04:37 WBC Hgb Sodium 152 H Creatinine 1.68 H Vancomycin Trough 21.2 Radiology Reviewed by me: Yes (PCXR - patchy infiltrates bilat) EKG Reviewed by me: Yes (Tele - SR with PVC's) Phys Exam - Physical Examination Constitutional: NAD HEENT: PERRLA, oral pharynx no lesions Neck: no JVD, supple scattered coarse sounds Cardiovascular: RRR Gastrointestinal: soft, non-tender, no distention, positive bowel sounds Musculoskeletal: no edema, pulses present Neurological: normal sensation, moves all 4 limbs Skin: normal turgor, cap refill <2 seconds Dx/Plan (1) Acute respiratory failure Code(s): J96.00 - ACUTE RESPIRATORY FAILURE, UNSP W HYPOXIA OR HYPERCAPNIA Status: Acute Qualifiers: Respiratory failure complication: hypoxia and hypercapnia Qualified Code(s) : J96.01 - Acute respiratory failure with hypoxia; J96.02 - Acute respiratory failure with hypercapnia; J96.02 - Acute respiratory failure with hypercapnia; J96.02 - Acute respiratory failure with hypercapnia Comment: Successful extubation today, O2 via NC (2) Atrial flutter Code(s): I48.92 - UNSPECIFIED ATRIAL FLUTTER Status: Acute Comment: NSR now , frequent asymptomatic PVC's (3) Hypernatremia Code(s): E87.0 - HYPEROSMOLALITY AND HYPERNATREMIA Status: Acute Comment: Resolved (4) Influenza A Code(s): J10.1 - FLU DUE TO OTH IDENT INFLUENZA VIRUS W OTH RESP MANIFEST Status: Acute Comment: Resolved (5) Pneumonia Code(s): J18.9 - PNEUMONIA, UNSPECIFIED ORGANISM Status: Acute Comment: Likely gm + cocci on current Zosyn and Levaquin, change Zosyn 2.25gm IV q6h due to renal function (6) Diabetes mellitus type 2 in nonobese Code(s): E11.9 - TYPE 2 DIABETES MELLITUS WITHOUT COMPLICATIONS Status: Chronic Comment: Levemir 10u SC BID, ISS (7) HILLARY (acute kidney injury) Code(s): N17.9 - ACUTE KIDNEY FAILURE, UNSPECIFIED Status: Acute Comment: Likely multifactorial and volume mediated, avoid nephrotoxic meds and contrast, renal adjustment to all doses - Plan continue antibiotics, PT/OT, rn social work, respiratory therapy, DVT proph w/ SCDs Stable currently -: Continue Zosyn and Levaquin -: CM for LTAC/SNF options -: PT for mobilization -: AM lab: BMP, CBC * .
[2017-05-01] MEDS ORDERED: Dextrose 5 %-0.45 % NaCl 1,000 ML IV SCH (22:45)
[2017-05-02] MEDS: Piperacillin/Tazobactam 2.25 GM in Sodium Chloride 0.9% 50 ML IVPB SCH ×3 (01:06→13:29)
[2017-05-02 05:01] LABS: #Basophils 0.1 thou/uL (0.0-0.2); #Eosinphils 0.1 thou/uL (0.0-0.7); #Lymphocytes 0.3 thou/uL (1.20-3.40); #Monocytes 0.2 thou/uL (0.11-0.59); #Neutrophils 9.7 thou/uL (1.40-6.50); %Basophils 0.6 % (0.0-1.0); %Eosinophils 1.3 % (0.0-10.0); %Lymphocytes 2.7 % (21.0-51.0); %Monocytes 2.2 % (0.0-10.0); %Neutrophils 93.2 % (42.0-75.0); Anion Gap 15 mmol/L (10-20); BUN (Urea Nitrogen) 89 mg/dL (8.4-25.7); Calc. Creatinine Clearance 36 mL/min (70-130); Calcium 7.5 mg/dL (7.8-10.44); Carbon Dioxide 24 mmol/L (23-31); Chloride 109 mmol/L (98-107); Estimated GFR-MDRD 42; Glucose 83 mg/dL (83-110); Hemoglobin 8.7 g/dL (14.0-18.0); Mean Corpuscular Hemoglobin 30.4 pg (27.0-31.0); Mean Platelet Volume 9.4 fL (7.4-10.4); Platelet Count 197 thou/uL (130-400); Potassium 3.2 mmol/L (3.5-5.1); RBC Distribution Width 12.7 % (11.5-14.5); Red Blood Cell (RBC) Count 2.86 mill/uL (4.70-6.10); Sodium 145 mmol/L (136-145); White Blood Cell (WBC) Count 10.4 thou/uL (4.8-10.8)
--- NOTE | 2017-05-02 07:38 | PDOC.PULCC ---
CCU Progress Note: Subj/Obj - Subjective Date: 05/02/17 Time: 07:36 Subjective: Had a rough night, after being extubated yesterday. Gets SOB when up in chair. Hypoglycemic at times - ROS Review of Systems: congestion, shortness of breath - Objective Allergies/Adverse Reactions: Allergies Allergy/AdvReac Type Severity Reaction Status Date / Time No Known Allergies Allergy Verified 12/04/16 00:34 Medications: Current Medications Acetaminophen (Tylenol) 650 mg PO Q4H PRN PRN Reason: Headache/Fever or Pain Last Admin: 04/28/17 08:34 Dose: 650 mg Acetaminophen (Tylenol) 650 mg MS Q4H PRN PRN Reason: Headache/Fever or Pain Last Admin: 04/20/17 17:32 Dose: 650 mg Albuterol/Ipratropium (Duoneb) 3 ml NEB [id number] [facility] Last Admin: 05/02/17 02:24 Dose: 3 ml Aspirin (Aspirin Chewable) 81 mg PER TUBE DAILY [facility] Last Admin: 05/01/17 08:27 Dose: 81 mg Bisacodyl (Dulcolax) 10 mg PO DAILYPRN PRN PRN Reason: Constipation Carvedilol (Coreg) 12.5 mg PO BID-[facility] Last Admin: 05/01/17 16:48 Dose: 12.5 mg Dextrose/Water (Dextrose 50%) 25 gm SLOW IVP PRN PRN PRN Reason: Hypoglycemia Glucagon (Glucagon) 1 mg IM PRN PRN PRN Reason: Hypoglycemia Heparin Sodium (Porcine) (Heparin) 5,000 units SC BID [facility] Last Admin: 05/01/17 20:19 Dose: 5,000 units Potassium Chloride 40 meq/ (Sodium Chloride) 270 mls @ 135 mls/hr IVPB ASDIR PRN PRN Reason: FOR SERUM K+ 2.5 - 3.5 Last Admin: 05/02/17 05:45 Dose: 270 mls Potassium Chloride 40 meq/ (Device) 100 mls @ 50 mls/hr IVPB ASDIR PRN PRN Reason: FOR SERUM K+ 2.5 - 3.5 Magnesium Sulfate 1 gm/ Sodium (Chloride) 102 mls @ 102 mls/hr IV PRN PRN PRN Reason: MAG LEVEL 1.4 - 2.0 Magnesium Sulfate 2 gm/ Device 100 mls @ 100 mls/hr IVPB ASDIR PRN PRN Reason: MAGNESIUM < 1.4 Potassium Phosphate 9 mmol/ (Sodium Chloride) 103 mls @ 25.75 mls/hr IVPB ASDIR PRN PRN Reason: Phosphate 1.0-1.8 Last Admin: 04/23/17 06:48 Dose: 103 mls Potassium Phosphate 12 mmol/ (Sodium Chloride) 254 mls @ 63.5 mls/hr IV ASDIR PRN PRN Reason: Serum phosphate 0.5-0.9 Potassium Phosphate 15 mmol/ (Sodium Chloride) 255 mls @ 63.75 mls/hr IV ASDIR PRN PRN Reason: Serum Phos < 0.5 Sodium Chloride (Normal Saline 0.9%) 1,000 mls @ 0 mls/hr IV .Q0M LEORA PRN Reason: KVO Dextrose/Water (D5w) 1,000 mls @ 0 mls/hr IV .Q0M PRN; As Directed PRN Reason: Hypoglycemia Insulin Detemir 10 units/ (Miscellaneous Medication) 0.1 mls @ 0 mls/hr SC BID [facility] Last Admin: 05/01/17 20:19 Dose: Not Given Levofloxacin 250 mg/ Device 50 mls @ 100 mls/hr IVPB Q24HR [facility] Stop: 05/06/17 08:31 Last Admin: 05/01/17 08:27 Dose: 50 mls Piperacillin Sod/Tazobactam (Sod 2.25 gm/ Sodium Chloride) 50 mls @ 100 mls/hr IVPB 0200,0800,1400,2000 [facility] Last Admin: 05/02/17 01:06 Dose: 50 mls Dextrose/Sodium Chloride (D5 1/2 Ns) 1,000 mls @ 75 mls/hr IV .[id number] [facility] Last Admin: 05/01/17 22:55 Dose: 1,000 mls Insulin Human Lispro (Humalog) 0 units SC .AGGRESSIVE SLIDING PRN; Protocol PRN Reason: AGGRESSIVE SLIDING SCALE Last Admin: 05/01/17 04:29 Dose: 3 units Magnesium Oxide (Magnesium Oxide) 400 mg PO BIDPRN PRN PRN Reason: FOR SERUM MAG 1.4 - 2.0 Last Admin: 04/22/17 22:19 Dose: 400 mg Magnesium Oxide (Magnesium Oxide) 800 mg PO PRN PRN PRN Reason: FOR SERUM MAG < 1.4 Methylprednisolone Sodium Succinate (Solu-Medrol) 40 mg IVP DAILY [facility] Last Admin: 05/01/17 08:28 Dose: 40 mg Miscellaneous Medication (Phos-Nak) 1 pkt PO TIDPRN PRN PRN Reason: FOR PHOS LEVEL 1.0 - 1.8 Miscellaneous Medication (Phos-Nak) 2 pkt PO TIDPRN PRN PRN Reason: FOR PHOS LEVEL 0.5 - 1.0 Potassium Chloride (K-Dur) 40 meq PO ASDIR PRN PRN Reason: FOR SERUM K+ 2.5 - 3.5 Potassium Chloride (Klor-Con) 40 meq PER TUBE ASDIR PRN PRN Reason: FOR SERUM K+ 2.5-3.5 Last Admin: 04/27/17 05:10 Dose: 40 meq Sodium Chloride (Flush - Normal Saline) 10 ml IVF Q12HR [facility] Last Admin: 05/01/17 20:18 Dose: 10 ml Sodium Chloride (Flush - Normal Saline) 10 ml IVF PRN PRN PRN Reason: Saline Flush MAR Reviewed: Yes Vital Signs and I&O: Vital Signs Temp 99.4 F 05/02/17 07:16 Pulse 96 05/02/17 07:16 Resp 26 H 05/02/17 07:16 BP 147/52 H 05/01/17 16:48 Pulse Ox 100 05/02/17 07:16 Intake & Output 05/01/17 05/02/17 05/02/17 18:59 06:59 18:59 Intake Total 1468 1499 Output Total 1225 830 40 Balance 243 669 -40 Weight 183 lb 3.266 oz 180 lb 15.992 oz Intake: Intake, IV Amount 1043 1224 Dextrose 5 %-0.45 % NaCl 874 1,000 ml @ 75 mls/hr IV . [id number] [facility] Rx#:[id number] Levofloxacin 250 mg/D5W 50 250 mg In Premix Bag 1 bag @ 100 mls/hr IVPB Q24HR [facility] Rx#:[id number] Piperacillin/Tazobactam 2 200 100 .25 gm In Sodium Chloride 0.9% 50 ml @ 100 mls/hr IVPB 0200,0800,1400,2000 [facility] Rx#:[id number] Potassium Chloride 40 meq 250 In Premix Bag 1 bag @ 50 mls/hr IVPB ASDIR PRN Rx #:[id number] Sodium Chloride 0.45% 1, 790 000 ml @ 75 mls/hr IV . [id number] [facility] Rx#:[id number] fentaNYL Citrate/PF 2,000 3 mcg In Sodium Chloride 0 .9% 60 ml @ As Directed IV INF [facility] Rx#:[id number] Oral 90 275 Tube Feeding 135 Tube Irrigant 200 Output: Output, Pulido 1125 830 40 Stool 100 Other: Voiding Method Indwelling Catheter Indwelling Catheter Indwelling Catheter Vent Setting: extubated CCU Progress Note: Exam - Physical Exam Constitutional: NAD HEENT: PERRLA, moist MMs Neck: no nodes, no JVD Cardiovascular: RRR Deviation from normal: generalized poor air movement bilateral Gastrointestinal: soft, non-tender Musculoskeletal: edema present Neurological: non-focal, normal sensation, moves all 4 limbs Lymphatic: no nodes Psychiatric: normal affect Skin: no rash - Labs Result Diagrams: 05/02/17 04:40 05/02/17 04:40 Lab results: Laboratory Results - last 24 hr 05/01/17 05/01/17 05/01/17 09:29 15:44 20:19 WBC RBC Hgb Hct MCV MCH MCHC RDW Plt Count MPV Neutrophils % Lymphocytes % Monocytes % Eosinophils % Basophils % Neutrophils # Lymphocytes # Monocytes # Eosinophils # Basophils # Sodium Potassium Chloride Carbon Dioxide Anion Gap BUN Creatinine Estimated GFR (MDRD) Glucose POC Glucose 141 H 89 67 L Calcium 05/01/17 05/02/17 05/02/17 22:02 04:25 04:40 WBC RBC Hgb Hct MCV MCH MCHC RDW Plt Count MPV Neutrophils % Lymphocytes % Monocytes % Eosinophils % Basophils % Neutrophils # Lymphocytes # Monocytes # Eosinophils # Basophils # Sodium 145 Potassium 3.2 L Chloride 109 H Carbon Dioxide 24 Anion Gap 15 BUN 89 H Creatinine 1.86 H Estimated GFR (MDRD) 42 Glucose 83 POC Glucose 68 L 70 Calcium 7.5 L 05/02/17 04:40 WBC 10.4 RBC 2.86 L Hgb 8.7 L Hct 26.3 L MCV 92.0 MCH 30.4 MCHC 33.0 RDW 12.7 Plt Count 197 MPV 9.4 Neutrophils % 93.2 H Lymphocytes % 2.7 L Monocytes % 2.2 Eosinophils % 1.3 Basophils % 0.6 Neutrophils # 9.7 H Lymphocytes # 0.3 L Monocytes # 0.2 Eosinophils # 0.1 Basophils # 0.1 Sodium Potassium Chloride Carbon Dioxide Anion Gap BUN Creatinine Estimated GFR (MDRD) Glucose POC Glucose Calcium CCU Progress Note: A/P - Problems (1) Acute respiratory failure Current Visit: Yes Status: Acute Code(s): J96.00 - ACUTE RESPIRATORY FAILURE , UNSP W HYPOXIA OR HYPERCAPNIA Qualifiers: Respiratory failure complication: hypoxia and hypercapnia Qualified Code(s) : J96.01 - Acute respiratory failure with hypoxia; J96.02 - Acute respiratory failure with hypercapnia; J96.02 - Acute respiratory failure with hypercapnia; J96.02 - Acute respiratory failure with hypercapnia (2) Influenza A Current Visit: Yes Status: Acute Code(s): J10.1 - FLU DUE TO OTH IDENT INFLUENZA VIRUS W OTH RESP MANIFEST (3) HILLARY (acute kidney injury) Current Visit: Yes Status: Acute Code(s): N17.9 - ACUTE KIDNEY FAILURE, UNSPECIFIED - Time Spent with Patient Time: 50% of the time was spent in coordination of care (as documented) at patient's floor/unit and/or counseling patient. - Plan Plan: Patient will be gently diuresed. Back off on IVF, but needs some D5 hanging due to hypoglycemia. Levemir will be stopped. Keep in CCU. Initiate PT
[2017-05-02] MEDS ORDERED: Furosemide 40 MG/4 ML VIAL IVP SCH (08:00)
[2017-05-02] MEDS: Carvedilol 6.25 MG TAB PO SCH ×2 (08:02→16:46)
[2017-05-02] MEDS: Heparin 5,000 UNITS/ML VIAL SC SCH (08:04)
[2017-05-02] MEDS: D5 1/4 NS 1,000 ML IV SCH ×2 (08:18→12:30)
--- NOTE | 2017-05-02 11:35 | PDOC.CTH ---
<LoganCharlene - Last Filed: 05/02/17 11:32> Cardiology Progress Note - Subjective The pt seen and examined. No overnight events. No cardiac complaints. Per nurse, he was up to chair yesterday, but not today due to fatigue. - Objective Vital Signs Temp Pulse Resp BP Pulse Ox 05/02/17 10:43 87 24 H 05/02/17 08:02 155/63 H 05/02/17 08:00 93 28 H 05/02/17 07:16 99.4 F 96 26 H 100 05/02/17 07:00 99.4 F 05/02/17 04:00 99.9 F H 94 L 05/02/17 02:24 86 22 H 95 05/02/17 00:00 98 F 94 L Admit Weight 169 lb Weight 180 lb 15.992 oz 05/01/17 05/02/17 05/03/17 06:59 06:59 06:59 Intake Total 4592.6 2967 460 Output Total 2720 2055 580 Balance 1872.6 912 -120 - Physical Examination General/Neuro: alert & oriented x3 Neck: no JVD present Lungs: other: (diminished at bases) Heart: RRR Abdomen: soft Extremities: other: (edema to bilat foot) - Telemetry Telemetry Rhythm: SR 80s w/ PVCs and PACs - Labs Result Diagrams: 05/02/17 04:40 05/02/17 04:40 - Assessment/Plan 1. A Fluter - Remains in SR with very frequent PVCs and PACs; Hx of Back to Afib with frequent PVCs during CODE events on 04/23/17; cont. monitor on tele; possible Afib ablation when his condition is stable 2. Resp. failure 2ndary to Influenza and PNA - stable with NC; on antibiotics; managed by resawyer/PCP 3. HTN - stable with current medication; cont. monitor 4. DM type 2 - on SS insulin; managed by PCP 5. Anemia - Hgb today is 8.7 MAR reviewed * Echo on 04/26/17 showed EF 50-55%, normal LV size, mild MR, and TDS . Review of Systems - Review of Systems Constitutional: reports: no symptoms reported EENTM: reports: no symptoms reported Respiratory: reports: no symptoms reported Cardiac (ROS): reports: no symptoms reported ABD/GI: reports: no symptoms reported : reports: no symptoms reported Musculoskeletal: reports: no symptoms reported <Jacklyn Urrutia - Last Filed: 05/02/17 14:20> Cardiology Progress Note - Objective Vital Signs Temp Pulse Pulse Pulse Resp BP BP 05/02/17 11:59 98.8 F 05/02/17 10:43 87 24 H 05/02/17 09:50 94 90 132/73 05/02/17 08:02 155/63 H 05/02/17 08:00 93 28 H 05/02/17 07:16 99.4 F 96 26 H 05/02/17 07:00 99.4 F 05/02/17 04:00 99.9 F H 05/02/17 02:24 86 22 H BP Pulse Ox Pulse Ox Pulse Ox 05/02/17 11:59 05/02/17 10:43 05/02/17 09:50 156/77 H 95 94 L 05/02/17 08:02 05/02/17 08:00 05/02/17 07:16 100 05/02/17 07:00 05/02/17 04:00 94 L 05/02/17 02:24 95 Admit Weight 169 lb Weight 180 lb 15.992 oz 05/01/17 05/02/17 05/03/17 06:59 06:59 06:59 Intake Total 4592.6 2967 560 Output Total 2720 2055 750 Balance 1872.6 912 -190 - Labs Result Diagrams: 05/02/17 04:40 05/02/17 04:40 - Assessment/Plan Pt. seen and eval. by me. The plan is to transfer him today to a [facility] facility. He remains in NSR with occasional ectopy. I agree with the A/P by the DYE LINE OPERATOR but the A-fib. probably can be controlled by medical treatment when nec. We will be happy to see him as an outpt. in the future. Chest: coarse rhonchi, scattered. RRR with nocc. ectopy.
[2017-05-02 12:00] VITALS: TEMP 98.8
[2017-05-02 14:10] VITALS: BMI 23.2
[2017-05-02] MEDS: HumaLOG 300 UNITS/3 ML VIAL SC PRN (16:29)
[2017-05-02 16:48] VITALS: BP 115/47
--- NOTE | 2017-05-02 23:14 | DIS ---
DATE OF ADMISSION: 04/19/2017 DATE OF DISCHARGE: 05/02/2017 DISCHARGE DIAGNOSES: 1. Bilateral community-acquired pneumonia, likely gram positive cocci with parapneumonic effusion. 2. Atrial flutter with rapid ventricular response, current sinus mechanism. 3. Status post acute hypoxemic respiratory failure. 4. Influenza A positive. 5. Hypernatremia, resolving. 6. Diabetes mellitus type 2. 7. Acute kidney injury. 8. Hypokalemia, mild. 9. Severe deconditioning. 10. Chronic normocytic anemia. CONSULTATIONS: Dr. Rodríguez, Dr. Valenzuela, and Dr. Salmon with Pulmonology Service. Dr. Urrutia with Cardi ology Service. PERTINENT LABORATORY DATA AND X-RAY FINDINGS: Potassium ranged between 3.2 to 4.7, creatinine ranged between 0.84 to 1.97, estimated GFR ranged between 40 to greater than 90. Sodium level ranged betwe en 136 to 153. CBC showed a white blood cell count ranged between 8.7 to 23.1, hemoglobin ranged bet ween 8.3 to 11.4. Blood cultures x2 dated 04/20/2017 showed no growth at 5 days. Respiratory cultur e dated 04/20/2017 showed presumptive Keyla albicans. Urine culture dated 04/26/2017 showed no hernandez wth at 48 hours. Blood cultures x2 from 04/26/2017 showed no growth at 48 hours. Respiratory cultur e dated 04/26/2017 showed Keyla albicans. C. difficile antigen and toxin dated 05/01/2017 negative . A 2D transthoracic echocardiogram dated 04/26/2017 showed ejection fraction of 50% to 55%. Techni mckayla limited exam. CT angiogram of the chest dated 04/19/2017 showed no evidence of pulmonary embol us. Multifocal pneumonia. Moderate bilateral pleural effusions. Portable chest x-ray dated 018 showed severe bilateral airspace densities, right greater than left. CT of the brain without con trast dated 04/23/2017 showed no acute intracranial process. Mild chronic ischemic white matter ramirez ges. HOSPITAL COURSE: The patient was initially admitted after presenting with worsening shortness of saadia ath, hypoxia and pneumonia. The patient underwent multiple imaging modalities showing evidence of bi lateral multifocal pneumonia with parapneumonic effusion. The patient with recent diagnosis of influ lazaro A positivity on 04/13/2017, now presenting with worsening bilateral pneumonia. The patient was given oxygen supplementation, bronchodilator therapy and broad spectrum IV antibiotic coverage. The patient was evaluated by the Pulmonology Service as patient continued to clinically decompensate desp ite aggressive pulmonary support. The patient underwent intubation and was monitored in the critical care unit. The patient was given aggressive pulmonary support including IV Solu-Medrol and bronchod ilator therapy. Cultures from the blood and respiratory showed essentially negative systemic infecti on; however, respiratory culture did show evidence of Keyla albicans. The patient received micafun gin, which was subsequently discontinued after approximately 5-day course. The patient was also note d with multiple metabolic derangements including acute kidney injury, prompting adjustments all doses of medications. The patient received electrolyte replacement per CCU protocol and overall remained clinically stable. The patient was evaluated for potential tracheostomy placement and PEG tube; lacy damian, continued to clinically improve and passed spontaneous breathing trials with sepsis with success ful extubation on 05/01/2017. Due to patient's overall deconditioned status and prolonged hospital c ourse. The patient was deemed an appropriate candidate for LTAC admission. The patient was also aurelio luated during the hospital course for atrial fibrillation/flutter with rapid ventricular response on initial Cardizem infusion. Cardiology Service did recommend medical management due to patient's lizbeth re acute illness. The patient converted to sinus mechanism with medical management and remained in s inus mechanism for the remainder of the hospital course. Telemetry monitoring did show frequent PVCs ; however, these were deemed asymptomatic. The patient was also evaluated for appropriateness of ora l intake; however, due to severe deconditioning and prolonged intubation, patient will need serial sp eech therapy swallowing evaluations for safe p.o. intake and re-instituted. Overall, the patient cli nically stabilized and ready for transfer to [facility] in [place], [place] on 2017. DISCHARGE MEDICATIONS: 1. Tylenol 325 mg 1 tab p.o. q.4 to 6 hours p.r.n. 2. Enteric coated aspirin 81 mg 1 tab p.o. q.a.m. 3. Coreg 12.5 mg p.o. b.i.d. 4. Heparin 5000 units subcutaneously b.i.d. 5. DuoNebs 3 mL nebulized q.4 hours p.r.n. 6. Levofloxacin 250 mg IV q.24 hours. 7. Zosyn 2.25 grams IV q.6 hours. 8. Solu-Medrol 40 mg IV daily. 9. Lovastatin 10 mg p.o. at bedtime. FOLLOWUP: The patient will be followed up at [facility] in [place], [place] after discharge. CONDITION ON DISCHARGE: Fair. ACTIVITY: Ad zhang, full assist with contacting standby guard payroll human resources assistant. High fall risk precautions. DIET: N.p.o. currently with recommendations for repeat dysphagia screening on 05/03/2017. CODE STATUS: FULL. DISPOSITION: Discharged to [facility] in [place], [place] on 05/02/2017. Total time preparing and coordinating discharge is 38 minutes.
== END 2017-05-02 16:55 | DRG 166 ==
LOC: IMCU/EMU 18:02 → CCU 04-20 11:14
PROVIDERS: ADMIT Internal Medicine; ATTEND Internal Medicine
PROC: 0BH17EZ Insertion of Endotracheal Airway into Trachea, Via Natural or Artificial Opening (ICD-10-PCS; principal; 2017-04-20)
PROC: 0B9M8ZZ Drainage of Bilateral Lungs, Via Natural or Artificial Opening Endoscopic (ICD-10-PCS; 2017-04-20)
PROC: 5A1945Z Respiratory Ventilation, 24-96 Consecutive Hours (ICD-10-PCS; 2017-04-20)
PROC: 5A1955Z Respiratory Ventilation, Greater than 96 Consecutive Hours (ICD-10-PCS; 2017-04-23)
PROC: 5A12012 Performance of Cardiac Output, Single, Manual (ICD-10-PCS; 2017-04-23)
PROC: 0BH17EZ Insertion of Endotracheal Airway into Trachea, Via Natural or Artificial Opening (ICD-10-PCS; 2017-04-23)
DX: J96.02 Acute respiratory failure with hypercapnia (principal); J18.9 Pneumonia, unspecified organism; R09.2 Respiratory arrest; J11.00 Influenza due to unidentified influenza virus with unspecified type of pneumonia; G93.41 Metabolic encephalopathy; N17.9 Acute kidney failure, unspecified; I48.91 Unspecified atrial fibrillation; I46.9 Cardiac arrest, cause unspecified; E87.0 Hyperosmolality and hypernatremia; I48.92 Unspecified atrial flutter; E87.1 Hypo-osmolality and hyponatremia; J96.01 Acute respiratory failure with hypoxia; D64.9 Anemia, unspecified; E11.9 Type 2 diabetes mellitus without complications; E78.5 Hyperlipidemia, unspecified; E87.6 Hypokalemia; N40.0 Benign prostatic hyperplasia without lower urinary tract symptoms; E78.00 Pure hypercholesterolemia, unspecified; I10 Essential (primary) hypertension
CPT/HCPCS: 36415; 36416; 70450; 71045; 71275; 80048; 80053; 80202; 82805; 83735; 84100; 85025; 87040; 87070; 87086; 87205; 87324; 87449; 90471; 90682; 93005; 93010; 93306; 94002; 94003; 94640; A4216; G0008; G8978-GP-CM; G8978-GP-CN; G8979-GP-CJ; G8979-GP-CK; G8996-GN-CM; G8996-GN-CN; G8997-GN-CJ; G8997-GN-CL; J0171; J1160; J1644; J1650; J1815; J1940; J1956; J2185; J2248; J2250; J2543; J2704; J2920; J3010; J3370; J3480; J7050; J7620; Q2036; S0028